=== PATIENT | female | born 1990 | race African-American/Black ===

== ENCOUNTER 2023-10-23 21:18 | Emergency (ER) | payer OTHER, SELFPAY ==
[2023-10-23 21:28] VITALS: BP 118/73; BP 126/69; PULSE 102; PULSE 82; RESP 18; TEMP 36.9; O2SAT 94; O2SAT 99; BMI 47.2
--- NOTE | 2023-10-23 22:03 | ED_ITS ---
HPI - Psych General Chief Complaint: Psychiatric Symptoms Stated Complaint: section 12, possible HI, from long term Source: patient and old records reviewed Mode of arrival: EMS Limitations: other (poor historian) History of Present Illness HPI Narrative: 33 yo female from long term - limited information appears to have developmental delay per records I do not see a med list here with c/o flipping knife around and talking about blood and wanting to kill people per section 12 - she denies anything and states she is fine and has no complaints. She only says yes or no. MD complaint: other (she denies) Onset (ago): hour(s) (1) Duration: resolved prior to arrival History of same: No Relieving factors: none Exacerbating factors: none Context: other (unknown) Associated psychiatric symptoms: none Associated symptoms: denies other symptoms Treatments prior to arrival: placed on mental health hold Related Data Allergies Allergy/AdvReac Type Severity Reaction Status Date / Time No Known Allergies Allergy Verified 10/23/23 21:33 Review of Systems Review of Systems: Constitutional : No Fever, No Chills ENT/Mouth : No Ear Pain, No Nasal Congestion, No sore throat Eyes: No Eye Pain, No Swelling, No Redness Cardiovascular : No Chest Pain, No SOB Respiratory : No Cough, No Sputum, No Dyspnea Gastrointestinal : No Nausea, No Vomiting, No Diarrhea, No Hematochezia, No Melena Genitourinary : No Dysuria, No Urinary Frequency, No Hematuria Musculoskeletal : No Myalgias Skin : No Skin Lesions, No rash Neuro : No Weakness, No Numbness, No Paresthesias, No Dizziness, No Headache Psych : no Anxiety, no Depression, no SI/HI All other systems reviewed and are negative [facility] Past Medical History Attestation statement: The following information was validated with the patient. Source: old records reviewed Medical History Cognitive developmental delay Social History Social History (Updated 10/23/23 @ 22:14 by Doreen Adams DO) Patient Tobacco Use Status: Tobacco use Unknown Physical Exam Vital Signs: Vital Signs: Last Vital Signs Temp 98.4 F 10/23/23 21:28 Pulse 82 10/23/23 21:28 Resp 18 10/23/23 21:28 BP 126/69 10/23/23 21:28 Pulse Ox 94 10/23/23 21:28 O2 Del Method Room Air 10/23/23 21:28 BMI result Body Mass Index 47.2 Appearance: Alert. Oriented X3. No acute distress. Eyes: Pupils equal, round and reactive to light. ENT: Pharynx normal. Neck: Normal inspection. Neck supple. CVS: Normal heart rate and rhythm. Pulses normal. Respiratory: No respiratory distress. Breath sounds normal. Abdomen: Soft and nontender. Skin: Skin warm and dry. Normal skin color. Normal skin turgor. Extremities: No lower extremity edema. No calf ttp Neuro: Oriented X 3. No motor deficit. No sensory deficit. Cn2-12 intact Medical Decision Making Medical Decision Making MDM Narrative: 33 yo female with PMH of developmental delay here with c/o reported gestures and threats at long term she comes with limited information and no med recc she is only saying yes or no responses to questions will obtain labs and involve CARE team. She came in on S12. I see no mention of mental health noted. Differential Diagnosis Differential Diagnoses: The differential diagnosis associated with the presentation includes anxiety, depression Admission/Observation Consideration of admission/observation: Escalation of care including admission/observation considered physician observation started at 1015pm pending care team input Consult Healthcare Provider Management of the patient was discussed with: Behavioral Health Provider Lab Data [facility] Lab Attestation statement: I reviewed the patient's lab results. Independent Historian Clinical information obtained from an independent historian. History obtained from or confirmed by: EMS External Record Review External record reviewed: Outpatient record Discharge Plan Discharge Clinical Impression: Acute anxiety Patient Disposition: Still a Patient
[2023-10-23 23:09] LABS: Influenza A PCR NEGATIVE (Negative); Influenza B PCR NEGATIVE (Negative); Resp Syncy Virus RNA Qual PCR NEGATIVE (Negative); SARS COV2 PCR INHOUSE NEGATIVE (Negative)
[2023-10-24 00:28] LABS: MANUAL DIFF FLAG NO
[2023-10-24 00:30] LABS: Basophils Percent Auto 0.4 % (0-2); Eosinophils Percent Auto 0.6 % (0-4); Hemoglobin 14.2 g/dl (12.0-16.0); Imm Gran Abs Auto 0.01 X10*3/uL (0.00-0.03); Imm Gran Pct Auto 0.2 % (0.0-0.4); Lymphocytes Absolute Auto 1.5 X10*3/uL (1.2-4.9); Lymphocytes Percent Auto 27.6 % (20-40); Mean Corpuscular HGB Conc 32.3 g/dl (31.0-35.0); Mean Corpuscular Hemoglobin 26.7 pg (27.0-33.0); Mean Corpuscular Volume 82.9 fL (80.0-98.0); Mean Platelet Volume 9.5 fL (9.4-12.3); Monocytes Absolute Auto 0.3 X10*3/uL (0.1-1.2); Monocytes Percent Auto 5.9 % (2-11); Neutrophils Absolute Auto 3.5 x10*3/uL (2.0-8.3); Neutrophils Percent Auto 65.3 % (45-73); Platelet Count 322 X10*3/uL (160-400); Red Blood Count 5.31 X10*6/uL (4.20-5.50); Red Cell Distribution Width 13.2 % (11.0-16.0); White Blood Count 5.3 X10*3/uL (4.8-10.8)
[2023-10-24 00:55] LABS: Alanine Aminotransferase 14 U/L (0-31); Albumin Level 3.9 g/dL (3.5-5.0); Alkaline Phosphatase 65 U/L (39-117); Anion Gap 13 (12-20); Aspartate Amino Transferase 22 U/L (5-31); Bilirubin Direct 0.2 mg/dL (0.0-0.5); Bilirubin Total 0.4 mg/dL (0.0-1.0); Blood Urea Nitrogen 6 mg/dL (9-16); Carbon Dioxide 23 mmol/L (22-29); Chloride 105 mmol/L (96-108); Estimated Glomerular Filt Rate > 60; Glucose Random 93 mg/dL (60-115); Potassium 4.8 mmol/L (3.3-5.1); Sodium 136 mmol/L (135-145); Total Protein 8.1 g/dL (6.5-8.0)
[2023-10-24 05:20] LABS: Appearance Urine Cloudy; Color Urine Yellow; Glucose Urine UA Negative (Negative); Leukocyte Esterase Urine Trace (Negative); Nitrite Urine Negative (Negative); PH 5.5 (5.0-9.0); Specific Gravity - Urine 1.015 (1.005-1.025); UMIC TRIGGER UACC YES; Urine Blood Negative (Negative); Urine Ketones Trace mg/dL (Negative); Urine Protein Negative (Neg-Trace)
[2023-10-24 05:21] LABS: UPreg QC Valid YES; Urine Pregnancy NEGATIVE (NEGATIVE)
[2023-10-24 05:25] LABS: Bacteria Urine 2+ (None Seen); Hyaline Casts Urine 0-2 /LPF (0-2); RBC Urine 0-2 /HPF (0-2); WBC Urine 0-5 /HPF (0-5)
[2023-10-24 05:28] LABS: Amphetamine Screen Urine Not Detected (Not Detect); Barbiturates, Urine Not Detected (Not Detect); Benzodiazepines Screen Urine Not Detected (Not Detect); Cannabinoid Screen Urine Not Detected (Not Detect); Cocaine Screen Urine Not Detected (Not Detect); Fentanyl, urine Not Detected (Not Detect); Opiate Screen Urine Not Detected (Not Detect); Phencyclidine Screen Urine Not Detected (Not Detect)
--- OUTSIDE RECORDS SUMMARY | 2023-10-24 06:09 | XMS_ITS | Continuity of Care Document ---
Author Organization [facility] ter Address [address] [place] [id number]- Care Team Providers Care Automation Control Integrator Name Role Phone Not on Staff, PCP Primary Care Physician Unavail able Encounter [facility] Date(s): 01/14/23 - 01/14/[address] [address]- Encounter Diagnosis Tachycardia(Final) - 01/14/23 Discharge Disposition: A-D/C Home Attending Physician: Isaías Singer MD Admitting Physician: Isaías Singer MD Referring Physician: Not on Staff, Referring MD Allergies, Adverse Reactions, Alerts No Known Allergies Medications acetaminophen 325 mg oral tablet 650 mg, 2, tablet, By Mouth, Every 6 hours, PRN, Maintenance, pain/fever <100F, 09/15/22 10:05:00 EST, ; Start Date: 09/15/22 Status: Ordered albuterol CFC free 90 mcg/inh inhalation aerosol 2, puffs, Inhalation, Every 6 hours, PRN, # 18 Gm, Refills 0, Tot. Refills 0, Maintenance, 01/15/2312:52:00 EDT, Aerosol, Route to Pharmacy Electronically, [id number], [facility], 168, cm, 01/14/23 12:12:00 EDT,... Start Date: 01/14/23 Status: Ordered Centrum 1 tablet, By Mouth, Daily, (INDIVIDUALLY WRAPPED AT [facility] [phone]), Maintenance, 06/10/22 10:10:00 EST, ; Start Date: 06/10/22 Status: Ordered diazepam 2 mg oral tablet 1 mg, 0.5, tablet, By Mouth, 2 times a day, Refills 0, Maintenance, 07/08/22 12:48:00 EST, ; Start Date: 07/08/22 Status: Ordered Keppra 750 mg oral tablet 1 tablet = 750 mg, By Mouth, 2 times a day, (INDIVIDUALLY WRAPPED AT [facility] [phone]), Maintenance, 06/10/22 10:11:00 EST, Tablet, ; Start Date: 06/10/22 Status: Ordered Melatonin 3 mg oral tablet 1 tablet = 3 mg, By Mouth, Daily at bedtime, (ALL MEDS ARE INDIVIDUALLY WRAPPED AT [facility] [phone]), Maintenance, 06/10/22 10:08:00 EST, Tablet, ; Start Date: 06/10/22 Status: Ordered Metamucil Powder 1 pack/packet, By Mouth, 2 times a day before breakfast and dinne, BEFORE MEALS (INDIVIDUALLY WRAPPED AT [facility] [phone]), Maintenance, 06/10/22 10:11:00 EST, Powder, ; Start Date: 06/10/22 Status: Ordered Nortrel 1/35 oral tablet 1 tablet, By Mouth, Daily, Maintenance, 09/15/22 10:01:00 EST, Tablet, ; Start Date: 09/15/22 Status: Ordered perphenazine 2 mg oral tablet 2 mg, 1, tablet, By Mouth, Daily in AM, Maintenance, 09/15/22 10:02:00 EST, ; Start Date: 09/15/22 Status: Ordered perphenazine 4 mg oral tablet 4 mg, 1, tablet, By Mouth, Daily, in the evening, Maintenance, 09/15/22 10:03:00 EST, ; Start Date: 09/15/22 Status: Ordered topiramate 100 mg oral tablet 1 tablet = 100 mg, By Mouth, Daily at bedtime, # 30 tablet, 0 Refills, Maintenance, 05/14/22 8:56:00 EDT, Tablet, [facility], Partial fill upon patient request if the prescription is for a schedule II opioid drug., 167, cm, 05/14/22 7:25:0... Start Date: 05/14/22 Status: Ordered traZODone 50 mg oral tablet 50 mg, 1, tablet, By Mouth, Daily at bedtime, Maintenance, 09/15/22 10:03:00 EST, ; Start Date: 09/15/22 Status: Ordered traZODone 50 mg oral tablet 50 mg, 1, tablet, By Mouth, Daily at bedtime, PRN, # 30 tablet, Refills 0, Tot. Refills 0, Maintenance, Insomnia, 05/14/22 8:58:00 EDT, Route to Pharmacy Electronically, [facility], Partial fill upon patient request if the prescription is... Start Date: 05/14/22 Status: Ordered Problem List Condition Confirmation Course Effective Dates Status Health St atus Informant Anxiety Confirmed Active H/O wheezing Confirmed Active Morbid obesity Confirmed Active Partial epilepsy Confirmed Active Schizophrenia Confirmed Active Severe obesity Confirmed Active Vital Signs Most recent to oldest [Reference Range]: 1 2 3 Height 168 cm (01/14/23 1:38 PM) 168 cm (01/14/23 1:26 PM) 168 cm (01/14/23 12:12 PM) Weight 159 kg (01/14/23 1:38 PM) 159 kg (01/14/23 1:26 PM) 159 kg (01/14/23 12:12 PM) Oxygen Saturation [94-100 %] 97 % (01/14/23 1: PM) 97 % (01/14/23 12:12 PM) Pulse Rate [55-90 bpm] 110 bpm *H* (01/14/23 1:26 PM) 110 bpm *H* (01/14/23 12:12 PM) Body Mass Index [18.5-24.99 kg/m2] 56.34 kg/m2 *>HHI* (01/14/23 1:26 PM) 56.34 kg/m2 *>HHI* (01/14/23 12:12 PM) Blood Pressure [90-138/55-84 mm Hg] 129/85mm Hg (01/14/23 1: PM) 159/91mm Hg *H* (01/14/23 12:12 PM) Respiratory Rate [16-30 br/min] 20 br/min (01/14/23 1:26 PM) 18 br/min (01/14/23 12:12 PM) Temperature [96.8-100.4 DegF] 97.5 DegF (01/14/23 12:12 PM) Mode of Delivery (Oxygen) Room air (01/14/23 1:26 PM) Room air (01/14/23 12:12 PM) Blood pressure sites Arm, right (01/14/23 1:26 PM) Arm, right (01/14/23 12:12 PM) Temperature Route Oral (01/14/23 12:12 PM) Dry Weight 159 kg (01/14/23 1:38 PM) 159 kg (01/14/23 1:26 PM) 159 kg (01/14/23 12:12 PM) Weight Obtained Via Patient/family state d (01/14/23 12:12 PM) Dry Weight Obtained Via Patient/family s tated (01/14/23 12:12 PM) Social History Social History Type Response Smoking Status Never smoker entered on: 06/16/14 Sex Note * Isaías Singer MD: PERFORM, SIGN, VERIFY Event Display: Patient Education Handout Authored Date: [id number] Patient Care team information Care Team Personnel Name: Anna Yarbrough RN Position: [facility] RN Member Role: Primary Care Nurse Name: Ju Woodard RN Position: S RN Member Role: Primary Care Nurse Name: Wanda Fuller RN Position: S RN Member Role: Primary Care Nurse Name: Not on Staff, PCP Position: [facility] Physician (General Medicine) Member Role: PCP Name: Suyapa Stevens RN Position: [facility] RN Supv Member Role: Primary Care Nurse Name: Sarah Bradford RN Position: [facility] RN Member Role: Primary Care Nurse Name: Isaías Singer MD Position: [facility] ED Medicine MD Member Role: Admitting Physician Address: Address: [address] [place] [address] [place] [address] [place] Care Team Related Persons Name: NEGOTIATOR SALESNILAY Address: home [address] [facility] [address] [place] [address] Name: HORTENCIA GOODWIN Address: home [address] [place] [address] Name: JANETTE HASKINS Address: home [address] [place] [address] Name: MADISON ANDERSON Address: home [address] [place] [address]
--- OUTSIDE RECORDS SUMMARY | 2023-10-24 06:09 | XMS_ITS | Continuity of Care Document ---
Author Organization [facility] ter Address [address] [place] [address]- Care Team Providers Care Internet Salesperson Name Role Phone Not on Staff, PCP Primary Care Physician Unavail able [place] [facility]06[place]23 - 03/06/[address] [address]- Encounter Diagnosis Agitation(Final) - 03/06/23 Schizoaffective disorder(Final) - 03/06/23 Intellectual disability(Final) - 03/06/23 Discharge Disposition: A-D/C Home Attending Physician: Serg Sevilla MD Admitting Physician: Serg Sevilla MD Referring Physician: Not on Staff, Referring [...] 01/15/2312:52:00 EDT, Aerosol, Route to Pharmacy Electronically, [id number], [facility], 168, cm, 01/14/23 12:12:00 EDT,... Start Date: 01/14/23 Status: Ordered Centrum 1 tablet, By Mouth, Daily, (INDIVIDUALLY WRAPPED AT [facility] [phone]), Maintenance, 06/10/22 10:10:00 EST, ; Start Date: 06/10/22 Status: Ordered diazepam 2 mg oral tablet 1 mg, 0.5, tablet, By Mouth, 2 times a day, Refills 0, Maintenance, 07/08/22 12:48:00 EST, ; Start Date: 07/08/22 Status: Ordered Keppra 750 mg oral tablet 1 tablet = 750 mg, By Mouth, 2 times a day, (INDIVIDUALLY WRAPPED AT [facility] [phone]), Maintenance, 06/10/22 10:11:00 EST, Tablet, ; Start Date: 06/10/22 Status: Ordered Melatonin 3 mg oral tablet 1 tablet = 3 mg, By Mouth, Daily at bedtime, (ALL MEDS ARE INDIVIDUALLY WRAPPED AT [facility] [phone]), Maintenance, 06/10/22 10:08:00 EST, Tablet, ; Start Date: 06/10/22 Status: Ordered Metamucil Powder 1 pack/packet, By Mouth, 2 times a day before breakfast and dinne, BEFORE MEALS (INDIVIDUALLY WRAPPED AT [facility] [phone]), Maintenance, 06/10/22 10:11:00 EST, Powder, ; Start [...] Most recent to oldest [Reference Range]: 1 Oxygen Saturation [94-100 %] 95 % (03/06/23 9:05 AM) Pulse Rate [55-90 bpm] 102 bpm *H* (03/06/23 9:05 AM) Blood Pressure [90-138/55-84 mm Hg] 135/ 83mm Hg (03/06/23 9:05 AM) Respiratory Rate [16-30 br/min] 18 br/mi n (03/06/23 9:05 AM) Temperature [96.8-100.4 DegF] 97.8 DegF (03/06/23 9:05 AM) Mode of Delivery (Oxygen) Room air (03/06/23 9:05 AM) Blood pressure sites Arm, right (03/06/23 9:05 AM) Temperature Route Oral (03/06/23 9:05 AM) Social History Social History Type Response Smoking Status Never smoker entered on: 06/16/14 Sex Patient Care team information Care Team Personnel Name: Anna Yarbrough RN Position: [facility] RN Member Role: Primary Care Nurse Name: Ju Woodard RN Position: [facility] RN Member Role: Primary Care Nurse Name: Wanda Fuller RN Position: [facility] RN Member Role: Primary Care Nurse Name: Not on Staff, PCP Position: [facility] Physician (General Medicine) Member Role: PCP Name: Suyapa Stevens RN Position: [facility] RN Member Role: Primary Care Nurse Name: Sarah Bradford RN Position: [facility] RN Member Role: Primary Care Nurse Name: Trang Mathew DO Position: [facility] Resident Member Role: ED Resident Address: Address: [address] [place] [address]- Name: Serg Sevilla MD Position: [facility] ED Medicine MD Member Role: Admitting Physician Address: Address: [address] [place] [address] Name: Sarita Thapa RN Position: [facility] ED RN W/OE and Tasks Member Role: Patient Care Provider Name: Lissette Marie Position: [facility] ED TA [facility] Member Role: Nail Assembly Machine Operator Care Team Related Persons Name: ACOUSTICAL MATERIAL WORKERNILAY Address: home [address] [facility] [address] [place] [address] Name: HORTENCIA GOODWIN Address: home [address] [place] [address] Name: JANETTE HASKINS Address: home [address] [place] [address] Name: MADISON ANDERSON Address: home [address] [place] [address]
--- OUTSIDE RECORDS SUMMARY | 2023-10-24 06:09 | XMS_ITS | Continuity of Care Document ---
Author Organization [facility] ter Address [address] [place] [address]- Care Team Providers Care Juice Bar Team Member Name Role Phone Not on Staff, PCP Primary Care Physician Unavail able [place] [facility] - 01/26/[address] [address]- Encounter Diagnosis Suicidal ideations(Final) - 01/25/23 Schizoaffective disorder(Final) - 01/25/23 Discharge Disposition: A-D/C Home Attending Physician: Александр Zuñiga MD Admitting Physician: Александр Zuñiga MD Referring Physician: Not on Staff, Referring [...] 01/15/2312:52:00 EDT, Aerosol, Route to Pharmacy Electronically, [id number], [facility], 168, cm, 01/14/23 12:12:00 EDT,... Start Date: 01/14/23 Status: Ordered Centrum 1 tablet, By Mouth, Daily, (INDIVIDUALLY WRAPPED AT [facility] [phone]), Maintenance, 06/10/22 10:10:00 EST, ; Start Date: 06/10/22 Status: Ordered diazepam 2 mg oral tablet 1 mg, 0.5, tablet, By Mouth, 2 times a day, Refills 0, Maintenance, 07/08/22 12:48:00 EST, ; Start Date: 07/08/22 Status: Ordered Keppra 750 mg oral tablet 1 tablet = 750 mg, By Mouth, 2 times a day, (INDIVIDUALLY WRAPPED AT [facility] [phone]), Maintenance, 06/10/22 10:11:00 EST, Tablet, ; Start Date: 06/10/22 Status: Ordered Melatonin 3 mg oral tablet 1 tablet = 3 mg, By Mouth, Daily at bedtime, (ALL MEDS ARE INDIVIDUALLY WRAPPED AT [facility] [phone]), Maintenance, 06/10/22 10:08:00 EST, Tablet, ; Start Date: 06/10/22 Status: Ordered Metamucil Powder 1 pack/packet, By Mouth, 2 times a day before breakfast and dinne, BEFORE MEALS (INDIVIDUALLY WRAPPED AT [facility] [phone]), Maintenance, 06/10/22 10:11:00 EST, Powder, ; Start [...] to oldest [Reference Range]: 1 2 3 Oxygen Saturation [94-100 %] 98 % (01/26/23 11:00 AM) 98 % (01/25/23 11:22 PM) 98 % (01/25/23 7:54 PM) Pulse Rate [55-90 bpm] 98 bpm *H* (01/26/23 11:00 AM) 100 bpm *H* (01/25/23 11:22 PM) 112 bpm *H* (01/25/23 7:54 PM) Blood Pressure [90-138/55-84 mm Hg] 129/87mm Hg (01/26/23 11:00 AM) 122/74mm Hg (01/25/23 11:22 PM) 135/95mm Hg (01/25/23 7:54 PM) Respiratory Rate [16-30 br/min] 17 br/min (01/26/23 11:00 AM) 18 br/min (01/25/23 11:22 PM) 18 br/min (01/25/23 7:54 PM) Temperature [96.8-100.4 DegF] 98.3 DegF (01/26/23 11:00 AM) 98.1 DegF (01/25/23 7:54 PM) Mode of Delivery (Oxygen) Room air (01/26/23 11:00 AM) Room air (01/25/23 11:22 PM) Room air (01/25/23 7:54 PM) Blood pressure sites Arm, right (01/26/23 11:00 AM) Arm, right (01/25/23 11:22 PM) Arm, right (01/25/23 7:54 PM) Temperature Route Oral (01/26/23 11:00 AM) Oral (01/25/23 7:54 PM) Social History Social History Type Response Smoking Status Never smoker entered on: 06/16/14 Sex Note * Александр Zuñiga MD: PERFORM Event Display: Patient Education Leaflets Authored Date: [id number] Psychosis ?? [id number] Psychosis Psychosis is a serious symptom of certain mental health problems. It also can be caused by some physical disease, traumatic experiences, or drugs and toxins. Psychosis involves perceiving reality differently from those around you. The difference between reality and what you think is reality becomesblurred in your mind. There are different kinds of psychosis, depending on the cause: ??? Health problems such as infections, thyroid disorders, some cancers, sleep deprivation, low or high blood sugar levels, or dementia ??? Drug-induced from drugs such as alcohol, methamphetamine, cocaine, LSD, or PCP ??? Bipolar disorder ??? Depression ??? Schizophrenia Symptoms The symptoms of psychosis may not all be the same for each person. But they usually involve: ??? Hallucinations. Seeing, hearing, feeling, or even tasting or smelling things that are not there. ??? Delusions.??Believing something that's not true, or false beliefs that are not part of a person's yazidi or cultural background. There may also be disturbances in thinking, speech, and behavior. These can include: ??? Hearing voices that others don't hear ??? Seeing things that others don't see ??? Racing thoughts ??? Lack of energy ??? Feeling very fearful ??? Disorganized speech ??? Intentional or unintentional bodily harm to others ??? Paranoia ??? Trouble thinking or concentrating clearly ??? Depression,feeling suicidal ??? Insomnia ??? Withdrawal from those around you Treatment for psychosis depends on the cause. Medicine is often used, with or without psychotherapy. You may need to stay in the hospital. This is to protect you and to carefully monitor medicines. ?? Home care ??? Find a healthcare provider and therapist who meet your needs. Seek help when you feellike your symptoms are returning. ??? Be sure to take your medicine as directed even if you think you don't need it. Never stop your medicine or change the dose without talking with your provider. Never use another person's medicine. ??? If you have trouble paying for your prescription, let your providers know so they can help you find resources. ??? Talk with your family about your feelings and thoughts. Ask them to help you recognize any behavior changes so you can get help and, if needed, medicines can be adjusted. ??? Contact your provider if you feel like your medicine is not working and changes need to be made. ?? Follow-up care is critical It's important to manage your condition by staying in close and regular contact with your healthcare team. Always follow up with your counselor, therapist, or psychiatrist as advised. Don't skip taking your medicine or change it without talking with your healthcare team. Take it as directed even if you think you don't need it. Also: ??? Be certain to tell each of your healthcare providers about all of the prescription medicines, ufjr-vue-wbvoaet medicines, illegal drugs, vitamins, and supplements you take.??Certain supplements interact with medicines. This can result in dangerous side effects.??Ask your pharmacist when you have questions about drug interactions. Tell your provider if you use alcohol and, if you do, howoften and how much you drink. ??? Tell your healthcare provider about all your medical conditions and any recent illnesses, such as infections. ??? Follow-up with lab tests as advised by your healthcare provider. Lab work is very important and can tell your provider the blood level of certain medicines. They can see if your dose needs to be increased or decreased. ?? Crisis care If you or the person is at immediate risk, call or text the National Suicide Lifeline at 988. Or call emergency services at 911. You will be connected to trained crisis counselors. An online chat option is also available. Lifeline is free and available 02/02. The Lifeline will work together with [facility] to make sure you get the care you need. Call 988 if you: ??? Have suicidal thoughts, a suicide plan, and the means to carry out the plan ??? Hear voices that are telling you to harm yourself or others ??? Have trouble breathing ??? Are very confused ??? Are very drowsy or have trouble awakening ??? Faint or lose??consciousness ??? Have arapid heart rate, very low heart rate, or a new irregular heart rate ??? Have a seizure ?? When to seek medical advice Call your healthcare provider right away if any of these occur: ??? Gradual or rapid return of psychotic symptoms ??? Feeling like you want to harm yourself or another ??? Feeling extremely depressed??? Feeling very anxious, agitated, or angry ??? Feeling out of control or being controlled by others ??? Unable to care for yourself ??? Seeing things or hearing voices that you know aren't real ?? Last Reviewed Date: 2021 ?? [id number] [employer]. All rights reserved. This information is not intended as a substitute for professional medical care. Always follow your healthcare professional's instructions. ?? Patient Care team information Care Team Personnel Name: Anna Yarbrough RN Position: [facility] RN Member Role: Primary Care Nurse Name: Ju Woodard RN Position: [facility] RN Member Role: Primary Care Nurse Name: Wanda Fuller RN Position: [facility] RN Member Role: Primary Care Nurse Name: Not on Staff, PCP Position: [facility] Physician (General Medicine) Member Role: PCP Name: Suyapa Stevens RN Position: [facility] RN Supv Member Role: Primary Care Nurse Name: Sarah Bradford RN Position: [facility] RN Member Role: Primary Care Nurse [facility] Attending Position: [facility] ED Attendings Patient Name: Александр Zuñiga MD Position: [facility] ED Medicine MD Member Role: Admitting Physician Address: Address: [address] [place] [id number] Name: Adam Guerrero Position: [facility] [place] [facility] Name: Elena Frey RN Position: [facility] ED RN W/OE and Tasks Member Role: Patient Care Provider Care Team Related Persons Name: LAUNCH ENGINEERNILAY Address: home [address] [facility] [address] [place] [address] Name: HORTENCIA GOODWIN Address: home [address] [place] [address] Name: JANETTE HASKINS Address: [address] [place] [address] Name: MADISON ANDERSON Address: [address] [place] [address]
--- OUTSIDE RECORDS SUMMARY | 2023-10-24 06:09 | XMS_ITS | Continuity of Care Document ---
Author Organization [facility] ter Address [address] [place] [id number]- Care Team Providers Care Senior Clinical Data Coordinator Name Role Phone Israel Boss MD Primary Care Physician Encounter [facility] [place] Date(s): 08/06/21 - 08/07/[address] [address]- Discharge Disposition: A-D/C Home Attending Physician: Andres Landers DO Admitting Physician: Andres Landers DO Referring Physician: Not on Staff, Referring MD Allergies, Adverse Reactions, Alerts No Known Allergies Medications acetaminophen 325 mg oral tablet 650 mg, 2, tablet, By Mouth, Every 6 hours, PRN, Maintenance, pain, 05/14/21 14:58:00 EDT, ; Start Date: 05/14/21 Status: Ordered bacitracin topical 500 u/gm ointment 1 application, Topically, 3 times a day, PRN as needed, apply to affected skin, Maintenance, 05/14/21 15:00:00 EDT, Ointment, ; Start Date: 05/14/21 Status: Ordered GuaiFENesin DM 20 mg-200 mg/10 mL oral liquid 10 mL, By Mouth, Every 6 hours, PRN as needed for cough, not to exceed 6 doses/day, Maintenance, 05/14/21 15:01:00 EDT, Liquid, ; Start Date: 05/14/21 Status: Ordered Keppra 750 mg oral tablet 1 tablet = 750 mg, By Mouth, 2 times a day, # 60 tablet, 6 Refills, Maintenance, 05/22/16 16:50:22 Start Date: 05/22/16 Stop Date: 12/18/16 Status: Ordered Nexplanon 68 mg subcutaneous implant 1 each = 68 mg, Subcutaneous Infusion, Once, Maintenance, 05/14/21 14:59:00 EDT, ; Start Date: 05/14/21 Status: Ordered Thera M 1 tablet, By Mouth, Daily in AM, Maintenance, 05/14/21 14:57:00 EDT, ; Start Date: 05/14/21 Status: Ordered Topamax 25 mg oral tablet 1 tablet = 25 mg, By Mouth, Daily at bedtime, 0 Refills, Maintenance, 05/13/21 13:36:00 EDT, Tablet, ; Start Date: 05/13/21 Status: Ordered Trilafon Tablet 3 mg, By Mouth, Daily, evening, Maintenance, 05/14/21 14:55:00 EDT, ; Start Date: 05/14/21 Status: Ordered Valium Tablet 1 mg, By Mouth, 2 times a day, Maintenance, 04/26/14 8:43:26 EDT Start Date: 04/26/14 Status: Ordered Problem List Condition Effective Dates Status Health Status Inform ant Anxiety(Confirmed) Active H/O wheezing(Confirmed) Active Morbid obesity(Confirmed) Active Partial epilepsy(Confirmed) Active Schizophrenia(Confirmed) Active Vital Signs Most recent to oldest [Reference Range]: 1 2 3 Oxygen Saturation [94-100 %] 98 % (08/07/21 6:00 AM) 98 % (08/06/21 8:39 PM) 100 % (08/06/21 5:15 PM) Pulse Rate [55-90 bpm] 103 bpm *H* (08/07/21 6:00 AM) 99 bpm *H* (08/06/21 8:39 PM) 92 bpm *H* (08/06/21 5:15 PM) Blood Pressure [90-138/55-84 mm Hg] 140/77mm Hg *H* (08/07/21 6:00 AM) 143/73mm Hg *H* (08/06/21 8:39 PM) 98/46mm Hg (08/06/21 5:15 PM) Respiratory Rate [16-30 br/min] 16 br/min (08/07/21 6:00 AM) 18 br/min (08/06/21 8:39 PM) 20 br/min (08/06/21 5:15 PM) Temperature [96.8-100.4 DegF] 97.8 DegF (08/07/21 6:00 AM) 98.2 DegF (08/06/21 5:15 PM) 98.3 DegF (08/06/21 10:45 AM) Liters per Minute 0 L/min (08/06/21 5:15 PM) Mode of Delivery (Oxygen) Room air (08/07/21 6:00 AM) Room air (08/06/21 8:39 PM) Room air (08/06/21 5:15 PM) Blood pressure sites Arm, right (08/07/21 6:00 AM) Arm, left (08/06/21 8:39 PM) Arm, right (08/06/21 5:15 PM) Temperature Route Oral (08/07/21 6:00 AM) Oral (08/06/21 5:15 PM) Oral (08/06/21 10:45 AM) Social History Social History Type Response Smoking Status Never smoker entered on: 06/16/14 Sex Female
--- OUTSIDE RECORDS SUMMARY | 2023-10-24 06:09 | XMS_ITS | Continuity of Care Document ---
Author Organization [facility] ter Address [address] [place] [address]- Care Team Providers Care Crocodile Farmer Name Role Phone Jeramie ASTORGAManas Primary Care Physician [phone] [place] [facility] [place](s): 06/09/22 - 06/10/[address] [address]- Discharge Disposition: A-D/C Home Attending Physician: Kaylee Vernon MD Admitting Physician: Kaylee Vernon MD Referring Physician: Not on Staff, Referring MD Allergies, Adverse Reactions, Alerts No Known Allergies Medications acetaminophen 325 mg oral tablet 325 mg, 1, tablet, By Mouth, Every 6 hours, PRN, (INDIVIDUALLY WRAPPED AT [facility] [phone]), Maintenance, PAINFEVER >100F, 06/10/22 10:13:00 EST, ; Start Date: 06/10/22 Status: Ordered bacitracin topical 500 u/gm ointment 1 application, Topically, 3 times a day, PRN as needed, apply to affected skin (INDIVIDUALLY WRAPPED AT [facility] [phone]), Maintenance, 06/10/22 10:16:00 EST, Ointment, ; Start Date: 06/10/22 Status: Ordered Centrum 1 tablet, By Mouth, Daily, (INDIVIDUALLY WRAPPED AT [facility] [phone]), Maintenance, 06/10/22 10:10:00 EST, ; Start Date: 06/10/22 Status: Ordered diazepam 2 mg oral tablet 1 mg, 0.5, tablet, By Mouth, 2 times a day, for 14 days, # 14 tablet, Refills 1, Tot. Refills 1, Acute 06/11/22 8:59:00 EST, 05/14/22 8:59:00 EDT, Print Requisition, Partial fill upon patient requestif the prescription is for a schedule II opioid drug. Start Date: 05/14/22 Stop Date: 06/11/22 Status: Ordered ibuprofen 400 mg oral tablet 600 mg, 1.5, tablet, By Mouth, Every 8 hours, PRN, (INDIVIDUALLY WRAPPED AT [facility] [phone]), Maintenance, as needed, 06/10/22 10:18:00 EST, ; Start Date: 06/10/22 Status: Ordered Keppra 750 mg oral tablet 1 tablet = 750 mg, By Mouth, 2 times a day, (INDIVIDUALLY WRAPPED AT [facility] [phone]), Maintenance, 06/10/22 10:11:00 EST, Tablet, ; Start Date: 06/10/22 Status: Ordered Melatonin 3 mg oral tablet 1 tablet = 3 mg, By Mouth, Daily at bedtime, (ALL MEDS ARE INDIVIDUALLY WRAPPED AT [facility] [phone]), Maintenance, 06/10/22 10:08:00 EST, Tablet, ; Start Date: 06/10/22 Status: Ordered Metamucil Powder 1 pack/packet, By Mouth, 2 times a day, BEFORE MEALS (INDIVIDUALLY WRAPPED AT [facility] [phone]), Maintenance, 06/10/22 10:11:00 EST, Powder, ; Start Date: 06/10/22 Status: Ordered Nexplanon 68 mg subcutaneous implant 1 each = 68 mg, Subcutaneous Infusion, Once, Maintenance, 05/14/21 14:59:00 EDT, ; Start Date: 05/14/21 Status: Ordered perphenazine 2 mg oral tablet 2 mg, 1, tablet, By Mouth, 2 times a day, (INDIVIDUALLY WRAPPED AT [facility] [phone]), Maintenance, 06/10/22 10:13:00 EST, ; Start Date: 06/10/22 Status: Ordered topiramate 100 mg oral tablet 1 tablet = 100 mg, By Mouth, Daily at bedtime, # 30 tablet, 0 Refills, Maintenance, 05/14/22 8:56:00 EDT, Tablet, [facility], Partial fill upon patient [...] prescription is... Start Date: 05/14/22 Status: Ordered Tuss-DM 10 mL, Chew, Every 6 hours, PRN Cough and Congestion, (INDIVIDUALLY WRAPPED AT [facility] [phone]), Maintenance, 06/10/22 10:18:00 EST, ; Start Date: 06/10/22 Status: Ordered Problem List Condition Confirmation Course Effective Dates Status Health St atus Informant Anxiety Confirmed Active H/O wheezing Confirmed Active Morbid obesity Confirmed Active Partial epilepsy Confirmed Active Schizophrenia Confirmed Active Severe obesity Confirmed Active Vital Signs Most recent to oldest [Reference Range]: 1 2 3 Oxygen Saturation [94-100 %] 100 % (06/10/22 8:45 AM) 99 % (06/10/22 2:00 AM) 100 % (06/09/22 7:47 PM) Pulse Rate [55-90 bpm] 98 bpm *H* (06/10/22 8:45 AM) 99 bpm *H* (06/10/22 2:00 AM) 94 bpm *H* (06/09/22 7:47 PM) Blood Pressure [90-138/55-84 mm Hg] 135/85mm Hg (06/10/22 8:45 AM) 115/60mm Hg (06/10/22 2:00 AM) 110/58mm Hg (06/09/22 7:47 PM) Respiratory Rate [16-30 br/min] 18 br/min (06/10/22 8:45 AM) 17 br/min (06/10/22 2:00 AM) 18 br/min (06/09/22 7:47 PM) Temperature [96.8-100.4 DegF] 98.3 DegF (06/10/22 8:45 AM) 98 DegF (06/10/22 2:00 AM) 97.7 DegF (06/09/22 7:47 PM) Mode of Delivery (Oxygen) Room air (06/10/22 8:45 AM) Room air (06/10/22 2:00 AM) Room air (06/09/22 7:47 PM) Blood pressure sites Arm, left (06/09/22 7:47 PM) Temperature Route Oral (06/10/22 8:45 AM) Oral (06/10/22 2:00 AM) Oral (06/09/22 7:47 PM) Social History Social History Type Response Smoking Status Never smoker entered on: 06/16/14 Sex EKG study * Event Display: ECG 12-Lead Authored Date: Please click on pdf link to open report * Event Display: ECG 12-Lead Authored Date: Ventricular Rate: 104 BPM Atrial Rate: 104 BPM P-R Interval: 184 ms QRS Duration: 102 ms Q-T Interval: 340 ms QTC Calculation(Bazett): 447 ms P Seaside: 60 degrees R Seaside: 52 degrees T Seaside: 25 degrees Sinus tachycardia Lateral infarct (cited on or before 10-JUN-2022) Abnormal ECG Confirmed by MARIAN LUGO ([id number]) on 06/10/2022 11:23:16 AM [place]: MARIAN LUGO * Event Display: EKG Authored Date: Patient Care team information Care Team Personnel Name: Manas Bobo DO Position: Reference Physician Member Role: PCP Address: Address: [address] [place] [address]- Name: Anna Yarbrough RN Position: [facility] RN Member Role: Primary Care Nurse Name: Ju Woodard RN Position: [facility] RN Member Role: Primary Care Nurse Name: Suyapa Stevens RN Position: [facility] RN Supv Member Role: Primary Care Nurse Name: Mouna Levy RN Position: [facility] RN Member Role: Primary Care Nurse Name: Sarah Bradford RN Position: [facility] RN Member Role: Primary Care Nurse Name: Diamond Haq RN Position: [facility] ED RN W/OE and Tasks Member Role: Patient Care Provider Name: Daphnie Noe Position: [facility] ED TA [facility] Member Role: Change Analyst Name: Steve Montana DO Position: [facility] Resident Member Role: ED Resident Address: Address: [address] [place] [address] [place] [address]- Name: Saulo COATES, Kaylee Burden Position: [facility] ED Medicine MD Member Role: Admitting Physician Address: Address: [address] [place] [address] [place] [address]- Care Team Related Persons Name: JUANCHO SHIN Address: home [address] [address] Name: HORTENCIA GOODWIN Address: home [address] [place] [address] Name: JANETTE HASKINS Address: home [address] [place] [address] Name: MADISON ANDERSON Address: home [address] [place] [address]
--- OUTSIDE RECORDS SUMMARY | 2023-10-24 06:09 | XMS_ITS | Continuity of Care Document ---
Author Organization [facility] ter Address [address] [place] [address]- Care Team Providers Care Glove Parts Inspector Name Role Phone Jeramie Manas ASTORGA Primary Care Physician [place] [facility] [place] - 06/07/[address] [address]- Encounter Diagnosis Paranoia(Final) - 06/07/22 Discharge Disposition: A-D/C Home Attending Physician: Ciara Samaniego MD Admitting Physician: Ciara Samaniego MD Referring Physician: Not on Staff, Referring MD Allergies, Adverse Reactions, Alerts No Known Allergies Medications diazepam 2 mg oral tablet 1 mg, 0.5, tablet, By Mouth, 2 times a day, for 14 days, # 14 tablet, Refills 1, Tot. Refills 1, Acute 06/11/22 8:59:00 EST, 05/14/22 8:59:00 EDT, Print Requisition, Partial fill upon patient requestif the prescription is for a schedule II opioid drug. Start Date: 05/14/22 Stop Date: 06/11/22 Status: Ordered Keppra 250 mg oral tablet 3 tablet = 750 mg, By Mouth, 2 times a day, # 180 tablet, 0 Refills, Maintenance, 05/14/22 8:54:00 EDT, [facility], Partial fill upon patient request if the prescription is for a schedule II opioid drug., 167, cm, 05/14/22 7:25:00... Start Date: 05/14/22 Status: Ordered multivitamin Multiple Vitamins oral tablet 1 tablet, By Mouth, Daily, # 30 tablet, 0 Refills, Maintenance, 05/14/22 8:57:00 EDT, Tablet, [facility], Partial fill upon patient request if the prescription is for a schedule II opioid drug., 1 tablet By Mouth Daily, 167, cm, 05/14/22 7... Start Date: 05/14/22 Status: Ordered Nexplanon 68 mg subcutaneous implant 1 each = 68 mg, Subcutaneous Infusion, Once, Maintenance, 05/14/21 14:59:00 EDT, ; Start Date: 05/14/21 Status: Ordered perphenazine 2 mg oral tablet 3 mg, 1.5, tablet, By Mouth, Daily at bedtime, # 45 tablet, Refills 0, Tot. Refills 0, Maintenance,05/14/22 8:55:00 EDT, Route to Pharmacy Electronically, [facility], Partial fill upon patient request if the prescription is for a schedule... Start Date: 05/14/22 Status: Ordered perphenazine 4 mg oral tablet 4 mg, 1, tablet, By Mouth, 4 times a day, # 56 tablet, Refills 0, Tot. Refills 0, Maintenance, 05/14/22 8:57:00 EDT, Route to Pharmacy Electronically, [facility], Partial fill upon patient request if the prescription is for a schedule II o... Start Date: 05/14/22 Stop Date: 05/28/22 Status: Ordered psyllium 3.4 g/5.4 g oral powder for reconstitution = 1.7 Gm, By Mouth, 3 times a day, PRN as needed for constipation, # 283 Gm, 0 Refills, Acute 05/15/23 8:57:00 EDT, 05/14/22 8:56:00 EDT, REC Powder, [facility], Partial fill upon patient request if the prescription is for a schedule II op... Start Date: 05/14/22 Stop Date: 05/15/23 Status: Ordered topiramate 100 mg oral tablet [...] [Reference Range]: 1 Oxygen Saturation [94-100 %] 98 % (06/07/22 3:00 PM) Pulse Rate [55-90 bpm] 61 bpm (06/07/22 3:00 PM) Blood Pressure [90-138/55-84 mm Hg] 138/ 83mm Hg (06/07/22 3:00 PM) Respiratory Rate [16-30 br/min] 18 br/mi n (06/07/22 3:00 PM) Temperature [96.8-100.4 DegF] 97.5 DegF (06/07/22 3:00 PM) Mode of Delivery (Oxygen) Room air (06/07/22 3:00 PM) Temperature Route Oral (06/07/22 3:00 PM) Social History Social History Type Response Smoking Status Never smoker entered on: 06/16/14 Sex Note * Ciara Samaniego MD: PERFORM, SIGN, VERIFY Event Display: Patient Education Handout Authored Date: * Ciara Samaniego MD: PERFORM Event Display: Patient Education Leaflets Authored Date: [id number] Schizoaffective Disorder ?? [id number] Schizoaffective Disorder Schizoaffective disorder is a serious chronic mental health condition that has symptoms of schizophrenia (hallucinations or delusions) and symptoms of a mood disorder (mk and depression). Schizoaffective disorder is a rare condition. It's often incorrectly diagnosed at first as bipolar disorder. It can take time to tell the difference between schizoaffective disorder and schizophreniaand mood disorders. Schizophrenia is long-term (chronic). It makes working and living society difficult. It's a type ofpsychosis that involves perceiving reality differently from those around you. The difference been reality and what you think become blurred in your mind.??The cause of schizophrenia is not yet known.It's believed to be a result of genetic and biological factors such as brain chemistry and structure. Symptoms of schizophrenia??include: ??? Seeing or hearing things that are not there (hallucinations) ??? False beliefs (delusions) ??? Disorganized thinking and speech ??? Severe anxiety ??? Feeling unreal ??? Paranoia ??? Insomnia ???Trouble thinking or concentrating clearly ??? Depression, feeling suicidal ??? Withdrawal from those around you (social withdrawal) Depression is one type of mood disorder that is related to brain chemistry. It's not just a state of unhappiness or sadness but a true disease. You may feel a lack of interest in normal activities. Sometimes there is sadness or guilt without any clear reason. Thinking may become slow and there can be a lack energy or feeling of hopelessness. Some people have thoughts of harming themselves at thisstage. Thoughts can even turn to suicide. Bipolar disorder is the other major mood disorder. It's an illness that causes strong mood swings between depression and mk. In the manic phase you may think fast and do things quickly. It may seem like you are getting a lot done. At first, this may feel very good; but in the extreme this can lead to a lifestyle that is disorganized and chaotic, and includes risky behavior (spending sprees, sexual acting out, or drug use). In later stages, it may affect eating (no interest in food) and sleeping (unable to sleep for days at a time). Speech may speed up and become hard for others to understand. You may appear to others as if you are in your own world. The exact cause of schizoaffective disorder is unknown. But a person is more likely to get this illness if a family member has it. Use of drugs such as amphetamines (speed) and cocaine increase the risk of getting this disorder. People with this illness will generally have to treat it long-term. Medicine and psychotherapy can help. Home care ??? On-going care and support helps people manage this illness. Find a healthcare provider and therapist who meet your needs. Don't be discouraged if you have to visit a number of therapists before you find one that works well with you. ??? Be sure to take your prescribed medicine as directed, even if you think you don???t need it. Don't change the dose or stop the medicine unless you talk with your provider. Don't share your medicines or use another person's medicines. ??? Talk to your provider if you trouble paying for your medicine. Ask them to help you find resources to help with this. ??? Get the required lab work on schedule to check your overall health and make certain you are getting the right amount of medicine ??? Seek support from trusted friends or family by talking about your feelings and thoughts. Ask them to help you recognize behavior changes early so you can get help. If needed, your healthcare provider can adjust your medicines and stop serious problems from developing. ??? Tell each of your healthcare providers about all of the prescription medicines, ove [id number] medicines, and supplements you take. This includes your dentist.??Certain supplementsinteract with medicines and can cause dangerous side effects.?? Ask your pharmacist when you have questions about medicine interactions. ??? If you are having trouble managing workplace issues, or caring for yourself because of this illness, contact your local Americans with Disabilities (ADA) office to see if they can help. ??The U.[place]. Department of Justice operates a toll-free ADA information line at 903-406-2612 (Voice) or 706-749-6094 (TTY). ??They can help you find a local office. ??? Don'tuse alcohol, amphetamines, cocaine, or related street??drugs to manage symptoms. These will interact with your medicines and make your condition worse. If your symptoms aren't being controlled, go back to your provider. You may need the dose of your current medicine changed or a different medicine. ?? Follow-up care Follow up with your healthcare provider, or??as advised. ?? Call 988 Call or text 988 if you ??? Have thoughts of harming yourself or others. . You will be connected to trained crisis counselors. ??? Have trouble breathing ??? Are very confused ??? Are very drowsy or have trouble awakening ??? Faint or lose consciousness ??? Have a rapid heart rate, very low heart rate, or a new irregular heart rate ??? Have a seizure The 988 counselors will work closely with 911 to get you the care you need. ?? When to seek medical advice Call your healthcare provider right away if any of these occur: ??? Feeling like your symptoms are getting worse ??? Family or friends express concern over your behavior and ask you to seek help ??? Feeling out of control or that you are being controlled by others ??? Unmanageable side effects fromthe prescription medicines. Don't stop your medicines because of the side effects unless you talk with your provider. ??? Feeling like you want to harm yourself or another ??? Unable to care for yourself ??? Worsening hallucinations ??? Worsening delusions or paranoia ??? Worsening depression or anxiety ?? Last Reviewed Date: 2021 ?? 9210-3150 [employer]. All rights reserved. This information is not intended as a substitute for professional medical care. Always follow your healthcare professional's instructions. ?? Patient Care team information Care Team Personnel Name: Manas Bobo DO Position: Reference Physician Member Role: PCP Address: Address: [address] [place] [address]- [place] Name: Anna Yarbrough RN Position: [facility] RN Member Role: Primary Care Nurse Name: Ju Woodard RN Position: [facility] RN Member Role: Primary Care Nurse Name: Suyapa Stevens RN Position: [facility] RN Supv Member Role: Primary Care Nurse Name: Mouna Levy RN Position: [facility] RN Member Role: Primary Care Nurse Name: Sarah Bradford RN Position: [facility] RN Member Role: Primary Care Nurse [facility] Attending Position: [facility] ED Attendings Patient Name: Ciara Samaniego MD Position: [facility] ED Medicine MD Member Role: Admitting Physician Address: Address: [address] [place] [address]- [place] Name: Azra Noriega Position: [facility] ED RN W/OE and Tasks Member Role: Patient Care Provider Care Team Related Persons Name: JANETTE SHINBERLY Address: home [address] [address] Name: HORTENCIA GOODWIN Address: home [address] [place] [address] Name: JANETTE HASKINS Address: home [address] [place] [address] Name: MADISON ANDERSON Address: home [address] [place] [address]
--- OUTSIDE RECORDS SUMMARY | 2023-10-24 06:09 | XMS_ITS | Continuity of Care Document ---
Author Organization [facility] ter Address [address] [place] [id number]- Care Team Providers Care Detective Bureau Chief Name Role Phone Not on Staff, PCP Primary Care Physician Unavail able Encounter [facility] Date(s): 01/30/23 - 01/30/[address] [address]- Encounter Diagnosis Arthritis of knee(Final) - 01/30/23 Therapeutic drug monitoring(Final) - 01/30/23 Discharge Disposition: A-D/C Home Attending Physician: Александр [...] 01/15/2312:52:00 EDT, Aerosol, Route to Pharmacy Electronically, [id number], [facility], 168, cm, 01/14/23 12:12:00 EDT,... Start Date: 01/14/23 Status: Ordered Centrum 1 tablet, By Mouth, Daily, (INDIVIDUALLY WRAPPED AT [facility] [phone]), Maintenance, 06/10/22 10:10:00 EST, ; Start Date: 06/10/22 Status: Ordered diazepam 2 mg oral tablet 1 mg, 0.5, tablet, By Mouth, 2 times a day, Refills 0, Maintenance, 07/08/22 12:48:00 EST, ; Start Date: 07/08/22 Status: Ordered Keppra 750 mg oral tablet 1 tablet = 750 mg, By Mouth, 2 times a day, (INDIVIDUALLY WRAPPED AT [facility] [phone]), Maintenance, 06/10/22 10:11:00 EST, Tablet, ; Start Date: 06/10/22 Status: Ordered Melatonin 3 mg oral tablet 1 tablet = 3 mg, By Mouth, Daily at bedtime, (ALL MEDS ARE INDIVIDUALLY WRAPPED AT [facility] [id number]), Maintenance, 06/10/22 10:08:00 EST, Tablet, ; Start Date: 06/10/22 Status: Ordered Metamucil Powder 1 pack/packet, By Mouth, 2 times a day before breakfast and dinne, BEFORE MEALS (INDIVIDUALLY WRAPPED AT [facility] [phone]), Maintenance, 06/10/22 10:11:00 EST, Powder, ; Start [...] Schizophrenia Confirmed Active Severe obesity Confirmed Active Results Radiology Reports * Exam Date Time Procedure Performing Provider Status 01/30/23 5:29 PM Knee 1 or 2 Views Right Marga Eric (Verified) Notes: (Knee 1 or 2 Views Right) Reason For Exam: with Pain;Trauma RESULT: Knee 1 or 2 Views Right Knee 1 or 2 Views Left, Knee 1 or 2 Views Right, Reason: Trauma; with Pain; Clinical Question(s): Fracture COMPARISON: Right knee radiograph 07/12/2018. FINDINGS: LEFT KNEE: There is no evidence of acute or healing fracture, dislocation or bone lesion. Mild degenerative joint space narrowing of the medial compartment with marginal osteophyte formation of the femoral condyle. There is also some prominence of the tibial spines. Joint space narrowing of the patellofemoral compartment with some small patellar spurs. No osteochondral defects or intra-articular loose bodies. No evidence of joint effusion. RIGHT KNEE: There is no evidence of acute or healing fracture, dislocation or bone lesion. Mild joint spaces narrowing of the medial compartment. Also some mild osseous narrowing of the patellofemoral compartment with patellar spurs. No osteochondral defects or intra-articular loose bodies. No evidence of joint effusion. IMPRESSION: No radiographic evidence of an acute osseous abnormality. Mild degenerative changes of both knees, particularly prominent in the left patellofemoral compartment and in both medial compartments, slightly greater than would be expected for age. WSN: [id number] Ordering Physician: Александр Zuñiga Dictated By: Michael Brooke MD Dictated Date/Time: 01/30/23 5:59 pm Reviewed By: Michael Brooke MD Signed By: Michael Brooke MD Signed Date/Time: 01/30/23 5:59 pm Transcribed By: WILMA Transcribed Date/Time: 01/30/23 5:53 pm * Exam Date Time Procedure Performing Provider Status 01/30/23 5:29 PM Knee 1 or 2 Views Left Ayesha Eric ; Pura (Verified) Notes: (Knee 1 or 2 Views Left) Reason For Exam: with Pain;Trauma RESULT: Knee 1 or 2 Views Left Knee 1 or 2 Views Left, Knee 1 or 2 Views Right, Reason: Trauma; with Pain; Clinical Question(s): Fracture COMPARISON: Right knee radiograph 07/12/2018. FINDINGS: LEFT KNEE: There is no evidence of acute or healing fracture, dislocation or bone lesion. Mild degenerative joint space narrowing of the medial compartment with marginal osteophyte formation of the femoral condyle. There is also some prominence of the tibial spines. Joint space narrowing of the patellofemoral compartment with some small patellar spurs. No osteochondral defects or intra-articular loose bodies. No evidence of joint effusion. RIGHT KNEE: There is no evidence of acute or healing fracture, dislocation or bone lesion. Mild joint spaces narrowing of the medial compartment. Also some mild osseous narrowing of the patellofemoral compartment with patellar spurs. No osteochondral defects or intra-articular loose bodies. No evidence of joint effusion. IMPRESSION: No radiographic evidence of an acute osseous abnormality. Mild degenerative changes of both knees, particularly prominent in the left patellofemoral compartment and in both medial compartments, slightly greater than would be expected for age. WSN: [id number] Ordering Physician: Александр Zuñiga Dictated By: Michael Brooke MD Dictated Date/Time: 01/30/23 5:59 pm Reviewed By: Michael Brooke MD Signed By: Michael Brooke MD Signed Date/Time: 01/30/23 5:59 pm Transcribed By: WILMA Transcribed Date/Time: 01/30/23 5:53 pm Vital Signs Most recent to oldest [Reference Range]: 1 2 3 Height 168 cm (01/30/23 8:13 PM) 168 cm (01/30/23 3:15 PM) Oxygen Saturation [94-100 %] 99 % (01/30/23 8:22 PM) 99 % (01/30/23 6:15 PM) 99 % (01/30/23 3:15 PM) Pulse Rate [55-90 bpm] 80 bpm (01/30/23 8:22 PM) 99 bpm *H* (01/30/23 6:15 PM) 106 bpm *H* (01/30/23 3:15 PM) Blood Pressure [90-138/55-84 mm Hg] 140/70mm Hg *H* (01/30/23 8:22 PM) 152/77mm Hg *H* (01/30/23 6:15 PM) 137/82mm Hg (01/30/23 3:15 PM) Respiratory Rate [16-30 br/min] 17 br/min (01/30/23 8:22 PM) 18 br/min (01/30/23 6:15 PM) 16 br/min (01/30/23 3:15 PM) Temperature [96.8-100.4 DegF] 98.6 DegF (01/30/23 6:15 PM) 98.6 DegF (01/30/23 3:15 PM) Mode of Delivery (Oxygen) Room air (01/30/23 8:22 PM) Room air (01/30/23 6:15 PM) Room air (01/30/23 3:15 PM) Blood pressure sites Arm, right (01/30/23 6:15 PM) Arm, right (01/30/23 3:15 PM) Temperature Route Oral (01/30/23 6:15 PM) Oral (01/30/23 3:15 PM) Dry Weight 165.7 kg (01/30/23 8:13 PM) 165.7 kg (01/30/23 3:15 PM) Dry Weight Obtained Via Patient/family s tated (01/30/23 3:15 PM) Social History Social History Type Response Smoking Status Never smoker entered on: 06/16/14 Sex Note * Yogesh COATES, Александр: PERFORM Event Display: Patient Education Leaflets Authored Date: [id number] RICE ?? [id number] RICE Rest an injury, elevate it, and use ice and compression as directed. RICE stands for rest, ice, compression, and elevation. These can limit pain and swelling after an injury. RICE may be recommended to help treat breaks (fractures), sprains, strains, and bruises or bumps.?? Home care Here are??the details of RICE: ??? Rest. Limit the use of the injured body part. This helps preventfurther damage to the body part and gives it time to heal. In some cases, you may need a sling, brace, splint, or cast to help keep the body part still until it has healed. ??? Ice. Applying ice right after an injury helps relieve pain and swelling. To make an ice pack, put ice cubes in a plastic bag that seals at the top. Wrap the bag in a clean, thin towel or cloth.??Then place it over the injured area. Do this for 15 to 20 minutes every??2 to 3??hours. Continue for the next 1 to 2 days or until your symptoms improve. Never put ice directly on your skin.??Don't ice an area longer than 20 minutes at a time. ??? Compression. Putting pressure on an injury helps reduce swelling and provides support. Wrap the injured area firmly with an elastic bandage or??wrap. Make sure not to wrap the bandage too tightly or you will cut off blood flow to the injured area. If your bandage loosens, rewrapit. ??? Elevation. Keeping an injury raised or elevated??above the level of your heart reduces swelling, pain, and throbbing. For instance, if you have a broken leg, it may help to rest your leg on several pillows when sitting or lying down. Try to keep the injured area elevated as often as possible. ?? Follow-up care Follow up with your healthcare provider as advised. ?? When to seek medical advice Call your healthcare provider right away??if any of these occur: ??? Fever of 100.4??F (38??C) or higher, or as directed by your healthcare provider ??? Chills ??? Increased pain or swelling in the injured body part ??? Injured body part becomes cold, blue, numb, or tingly ??? Signs of infection. These include warmth in the skin, redness, drainage, or bad smell coming from the injured body part. ??? New symptoms ?? Last Reviewed Date: 2021 ?? 5327-0835 The [employer]. All rights reserved. This information is not intended as a substitute for professional medical care. Always follow your healthcare professional's instructions. ?? * Александр Zuñiga MD: PERFORM Event Display: Patient Education Leaflets Authored Date: [id number] Osteoarthritis ?? [id number] Osteoarthritis Osteoarthritis happens??when the cartilage in a joint becomes damaged and worn. This may be from age, wear and tear, overuse of the joint, obesity, or other problems. Osteoarthritis??can affect any joint, but it's most common in??hands, knees, spine, hips, and feet. Symptoms include joint stiffness, and pain. It's also called degenerative joint disease. Home care ??? When a joint is more sore than usual, rest it for 1 or 2 days. ??? Heat can help relieve stiffness. Take a hot bath or apply a heating pad for up to 30 minutes at a time. If symptoms are worse in the morning, using heat just after awakening can help relax the muscle and soothe the joints.? Ice helps relieve pain. It's often used after activity. Use a cold pack wrapped in a thin cloth on the joint for 10 to 15 minutes at a time.? Alternating hot and cold can also help relieve pain. Try this for 20 minutes at a time, several times per day. ??? Exercise helps prevent the muscles and ligaments around the joint from becoming weak.??It also helps maintain function in the joint.??Be as active as you can. Talk to your healthcare provider about what activity program is bestfor you. ??? Excess weight puts a lot of extra strain on weight-bearing joints of the lower back, hips, knees, feet, and ankles. If you are overweight, talk to your provider about a safe and effective weight loss program. ??? Use anti-inflammatory medicines as prescribed for pain. This includes acetaminophen or NSAIDs (nonsteroidal anti-inflammatory drugs) such as ibuprofen or naproxen. Don't take NSAIDs if your provider has told you that you can't take NSAIDS because of other health problems. If needed, topical or injected medicines may be advised. Talk with your provider if these choices aren't enough to manage your pain. Follow the directions on all [id number] medicines. If you're t aking NSAIDs routinely, talk to your provider. ??? Talk with your provider about devices that mighthelp improve your function and reduce pain. ??? Talk with your provider about physical therapy to help strengthen your joints and the nearby muscles. ?? Follow-up care Follow up with your healthcare provider, or as advised. ?? When to get medical advice Call your healthcare provider right away if any of the following occur: ??? Redness or swelling of a painful joint ??? Discharge or pus from a painful joint ??? Fever of??100.4??F (38??C)??or higher,or as directed by your healthcare provider ??? Joint pain that gets worse ??? Decreased ability to move the joint or bear weight on the joint ?? Last Reviewed Date: 2021 ?? 3003-0007 [employer]. All rights reserved. This information is not intended as a substitute for professional medical care. Always follow your healthcare professional's instructions. ?? Patient Care team information Care Team Personnel Name: Anna Yarbrough RN Position: [facility] RN Member Role: Primary Care Nurse Name: Ju Woodard RN Position: [facility] RN Member Role: Primary Care Nurse Name: Wanda Fuller RN Position: [facility] RN Member Role: Primary Care Nurse Name: Not on Staff, PCP Position: [facility] Physician (General Medicine) Member Role: PCP Name: Suyapa Stevens RN Position: [facility] RN Supv Member Role: Primary Care Nurse Name: Sarah Bradford RN Position: [facility] RN Member Role: Primary Care Nurse Name: Александр Zuñiga MD Position: [facility] ED Medicine MD Member Role: Admitting Physician Address: Address: [address] [place] [address] Name: Sirena Florentino RN Position: [facility] ED RN W/OE and Tasks Member Role: Patient Care Provider Name: Marcie Martinez Position: [facility] ED [facility] Care Team Related Persons Name: PULL OVERNILAY Address: home [address] [place] [address] Name: HORTENCIA GOODWIN Address: home [address] [place] [address] Name: JANETTE HASKINS Address: [address] [place] [address] Name: MADISON ANDERSON Address: home [address] [place] [address]
--- OUTSIDE RECORDS SUMMARY | 2023-10-24 06:09 | XMS_ITS | Continuity of Care Document ---
Author Organization [facility] ter Address [address] [place] [address]- Care Team Providers Care Dip Filler Name Role Phone Manas Bobo DO Primary Care Physician [place] [facility] [place] - 08/06/[address] [address]- Discharge Disposition: A-D/C Home Attending Physician: Mikey Garcia MD Admitting Physician: Mikey Garcia MD Referring Physician: Not on Staff, Referring [...] 01/15/2312:52:00 EDT, Aerosol, Route to Pharmacy Electronically, [id number], [facility], 168, cm, 01/14/23 12:12:00 EDT,... Start Date: 01/14/23 Status: Ordered albuterol CFC free 90 mcg/inh inhalation aerosol 180 mcg, 2, puffs, Inhalation, Every 6 hours, PRN, place in blister pack, # 8 Gm, Refills 0, Tot. Refills 0, Maintenance, 08/05/23 15:54:00 EST, Inhaler, Route to Pharmacy Electronically, [id number], [facility]/pharmacy #[id number], 165.7... Start Date: 08/05/23 Status: Ordered Centrum 1 tablet, By Mouth, Daily, (INDIVIDUALLY WRAPPED AT [facility] [phone]), Maintenance, 06/10/22 10:10:00 EST, ; Start Date: 06/10/22 Status: Ordered cloNIDine 0.1 mg oral tablet 0.1 mg, 1, tablet, By Mouth, 4 times a day, PRN, blister pack, # 120 tablet, Refills 0, Tot. Refills 0, Maintenance, Anxiety, 08/06/23 14:32:00 EST, Route to Pharmacy Electronically, [facility]/pharmacy #[id number], Partial fill upon patient request if the prescri... Start Date: 08/06/23 Status: Ordered cyproheptadine 4 mg oral tablet 4 mg, 1, tablet, By Mouth, Daily at bedtime, PRN, for 30 days, If symptons persist maximum 32mg in [address] in blister pack, # 30 tablet, Refills 0, Tot. Refills 0, Acute 09/04/23 15:54:00 EST,Insomnia, 08/05/23 15:54:00 EST, Route to Pharmacy... Start Date: 08/05/23 Stop Date: 09/04/23 Status: Ordered diazepam 2 mg oral tablet 1 mg, 0.5, tablet, By Mouth, 2 times a day, Refills 0, Maintenance, 07/08/22 12:48:00 EST, ; Start Date: 07/08/22 Status: Ordered Keppra 750 mg oral tablet 1 tablet = 750 mg, By Mouth, 2 times a day, place in blister pack, # 60 tablet, 0 Refills, Maintenance, 08/05/23 16:18:00 EST, Tablet, [facility]/pharmacy #[id number], Partial fill upon patient request if the prescription is for a schedule II opioid drug., 165.7,... Start Date: 08/05/23 Stop Date: 09/04/23 Status: Ordered Keppra 750 mg oral tablet 1 tablet = 750 mg, By Mouth, 2 times a day, (INDIVIDUALLY WRAPPED AT [facility] [phone]), Maintenance, 06/10/22 10:11:00 EST, Tablet, ; Start Date: 06/10/22 Status: Ordered Melatonin 3 mg oral tablet 1 tablet = 3 mg, By Mouth, Daily at bedtime, (ALL MEDS ARE INDIVIDUALLY WRAPPED AT [facility] [phone]), Maintenance, 06/10/22 10:08:00 EST, Tablet, ; Start Date: 06/10/22 Status: Ordered Metamucil Powder 1 pack/packet, By Mouth, 2 times a day before breakfast and dinne, BEFORE MEALS (INDIVIDUALLY WRAPPED AT [facility] [phone]), Maintenance, 06/10/22 10:11:00 EST, Powder, ; Start Date: 06/10/22 Status: Ordered Nortrel 1/35 oral tablet 1 tablet, By Mouth, Daily, Maintenance, 09/15/22 10:01:00 EST, Tablet, ; Start Date: 09/15/22 Status: Ordered OXcarbazepine 150 mg oral tablet 450 mg, By Mouth, 2 times a day, place in blister pack, # 180 capsule, Refills 0, Tot. Refills 0, Maintenance, 08/05/23 15:54:00 EST, Route to Pharmacy Electronically, [facility]/pharmacy #[id number], Partial fill upon patient request if the prescription is for a... Start Date: 08/05/23 Stop Date: 09/04/23 Status: Ordered perphenazine 2 mg oral tablet [...] List Condition Confirmation Course Effective Dates Status H ealth Status Informant Anxiety Confirmed Active H/O wheezing Confirmed Active Intellectual disability Confirmed Active Morbid obesity Confirmed Active Partial epilepsy Confirmed Active Schizophrenia Confirmed Active Severe obesity Confirmed Active Vital Signs Most recent to oldest [Reference Range]: 1 2 3 Height 165.7 cm (08/06/23 1:31 AM) 165.7 cm (08/04/23 1:04 AM) 165.7 cm (08/03/23 4:19 PM) Oxygen Saturation [94-100 %] 96 % (08/06/23 3:32 PM) 98 % (08/06/23 1:31 AM) 100 % (08/05/23 9:12 AM) Pulse Rate [55-90 bpm] 100 bpm *H* (08/06/23 3:32 PM) 85 bpm (08/06/23 1:31 AM) 87 bpm (08/05/23 9:12 AM) Blood Pressure [90-138/55-84 mm Hg] 136/102mm Hg (08/06/23 3:32 PM) 145/77mm Hg *H* (08/06/23 1:31 AM) 147/107mm Hg *H* (08/05/23 9:12 AM) Respiratory Rate [16-30 br/min] 18 br/min (08/06/23 3:32 PM) 18 br/min (08/06/23 1:31 AM) 16 br/min (08/05/23 9:12 AM) Temperature [96.8-100.4 DegF] 98.3 DegF (08/06/23 3:32 PM) 98.4 DegF (08/06/23 1:31 AM) 97.8 DegF (08/05/23 9:12 AM) Mode of Delivery (Oxygen) Room air (08/06/23 3:32 PM) Room air (08/06/23 1:31 AM) Room air (08/05/23 9:12 AM) Blood pressure sites Arm, left (08/06/23 1:31 AM) Arm, left (08/04/23 7:24 PM) Arm, left (08/04/23 1:35 PM) Temperature Route Oral (08/06/23 3:32 PM) Oral (08/06/23 1:31 AM) Oral (08/05/23 9:12 AM) Social History Social History Type Response Smoking Status Never smoker entered on: 06/16/14 Sex Note * Mikey Garcia MD: PERFORM Event Display: Patient Education Leaflets Authored Date: [id number] Schizoaffective Disorder ?? [id number] Schizoaffective Disorder Schizoaffective disorder is a serious chronic mental health condition that has symptoms of schizophrenia (hallucinations or delusions) and symptoms of a mood disorder (mk and depression). Schizoaffective disorder is a rare condition. It's often incorrectly diagnosed at first as bipolar disorder. It can take time to tell the difference between schizoaffective disorder and schizophreniaand mood disorders. Schizoaffective disorder is life-long (chronic). Though it is important to realize that symptoms can lesson with time and treatment. It makes working and living in society difficult. Schizoaffective disorder is a psychotic disorder. Someone with schizoaffective disorder has thoughts and emotions that are a distortion of external reality. They perceive a unique reality from those around them. The difference between reality and what you think become blurred in your mind.??The cause of schizoaffective disorder is not yet known. It's believed to be a result of genetic and biological factors such as brain chemistry and structure. Symptoms of schizoaffective disorder??include: ??? Seeing or hearing things that are not there (hallucinations). Hearing (auditory) hallucinationsare most common. ??? False beliefs (delusions) ??? Disorganized thinking and speech ??? Severe anxiety ??? Feeling unreal ??? Paranoia ??? Insomnia ??? Trouble thinking or concentrating clearly ??? De pression, feeling suicidal ??? Withdrawal from those around you (social withdrawal) Depression is 1 type of mood disorder that is related to brain chemistry. It is common in people with schizoaffective disorder. You may feel a lack of interest in normal activities. Sometimes there is sadness or guilt without any clear reason. Thinking may become slow and there can be a lack energyor feeling of hopelessness. Some people have thoughts of harming themselves at this stage. Thoughtscan even turn to suicide. Bipolar disorder is [...] to a lifestyle that is disorganized and chaotic. It can include risky behavior (spending sprees, sexual acting out, or drug use). In later stages, it may affect eating (no interest in food) and sleeping (unable to sleep for days at a time). Speech may speed up and become hard for others to understand. You may appear to others as if you are in your own world. It is possibly hereditary which means a person is more likely to get this illness if a family member has it. Use of drugs such as marijuana in certain people, amphetamines (speed) and cocaine increase the risk of getting this disorder. People with this illness will generally have to take medicines to treat it long-term. Home care ??? Ongoing care and support helps people manage this illness. Find a healthcare providerand therapist who meet your needs. Don't be discouraged if you have to visit a number of therapistsbefore you find one that works well with you. ??? Make sure to take your prescribed medicine as advised, even if you think you don???t need it. Don't change the dose or stop the medicine unless you talk with your provider. Don't share your medicines or use another person's medicines. ??? Talk to your provider if you have trouble paying for your medicine. Ask them to help you find resources to help with this. ??? Get the required lab work on schedule to check your overall health and make sure you are getting the right amount of medicine ??? Seek support from trusted friends or family by talking about your feelings and thoughts. Ask them to help you recognize behavior changes early so you canget help. If needed, your healthcare provider can adjust your medicines and stop serious problems from developing. ??? Tell each of your healthcare providers about all of the prescription medicines, txcg-mdc-qryxpfk medicines, vitamins, and supplements you take. This includes your dentist.??Certainsupplements interact with medicines and can cause dangerous side effects.?? Ask your pharmacist about medicine interactions before taking a new medicine or supplement. ??? If you are having trouble managing workplace issues, or caring for yourself because of this illness, contact your local Americans with Disabilities (ADA) office to see if they can help. ??The U.S. Department of Justice operatesa toll-free ADA information line at 182-896-3251 (Voice) or 270-813-3608 (TTY). ??They can help youfind a local office. ??? Don't use alcohol, amphetamines, cocaine, or related street??drugs to manage symptoms. These will interact with your medicines and make your condition worse. If your symptomsaren't being controlled, go back to your provider. You may need the dose of your current medicine changed or a different medicine. ?? Follow-up care Follow up with your healthcare provider, or??as advised. ?? Call [facility] Call or text 988 if you ??? Have thoughts of harming yourself or others. You will be connected to trained crisis counselors. ??? Have trouble breathing ??? Are very confused ??? Are very drowsy or have trouble awakening ???Faint or lose consciousness ??? Have a rapid [...] side effects fromthe prescription medicines. Don't stop or change the way you take your medicines because of the side effects unless you talk with your provider. ??? Feeling like you want to harm yourself or another ??? Unable to care for yourself ??? Worsening hallucinations ??? Worsening delusions or paranoia ???Worsening depression or anxiety ?? Last Reviewed Date: 2023 ?? [id number] [employer]. All rights reserved. This information is not intended as a substitute for professional medical care. Always follow your healthcare professional's instructions. ?? Patient Care team information Care Team Personnel Name: Manas Bobo DO Position: Reference Physician Member Role: PCP Address: Address: [address] [place] [id number] Name: Anna Yarbrough RN Position: S RN Member Role: Primary Care Nurse Name: Ju Woodard RN Position: S RN Member Role: Primary Care Nurse Name: Wanda Fuller RN Position: S RN Member Role: Primary Care Nurse Name: Suyapa Stevens RN Position: S RN Member Role: Primary Care Nurse Name: Sarah Bradford RN Position: S RN Member Role: Primary Care Nurse Care Team Related Persons Name: NILAY ROSS Address: home [address] [place] [address] Name: HORTENCIA GOODWIN Address: home [address] [place] [address] Name: JANETTE HASKINS Address: home [address] [place] [address] Name: MADISON ANDERSON Address: home [address] [place] [address]
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
--- OUTSIDE RECORDS SUMMARY | 2023-10-24 06:09 | XMS_ITS | Continuity of Care Document ---
Author Organization [facility] ter Address [address] [place] [address]- Care Team Providers Care Solution Consultant Name Role Phone Manas Bobo DO Primary Care Physician Encounter [facility] Date(s): 10/06/22 - 10/10/[address] [address]- Encounter Diagnosis Schizoaffective disorder(Final) - 10/06/22 Discharge Disposition: Transfer to [facility] Facility Attending Physician: Johan Bailey MD Admitting Physician: Johan Bailey MD Referring Physician: Not on Staff, Referring MD Allergies, Adverse Reactions, Alerts No Known Allergies Medications acetaminophen 325 mg oral tablet 650 mg, 2, tablet, By Mouth, Every 6 hours, PRN, Maintenance, pain/fever <100F, 09/15/22 10:05:00 EST, ; Start Date: 09/15/22 Status: Ordered Centrum 1 tablet, By Mouth, Daily, (INDIVIDUALLY WRAPPED AT JAMEL [phone]), Maintenance, 06/10/22 10:10:00 EST, ; Start Date: 06/10/22 Status: Ordered diazepam 2 mg oral tablet 1 mg, 0.5, tablet, By Mouth, 2 times a day, Refills 0, Maintenance, 07/08/22 12:48:00 EST, ; Start Date: 07/08/22 Status: Ordered Keppra 750 mg oral tablet 1 tablet = 750 mg, By Mouth, 2 times a day, (INDIVIDUALLY WRAPPED AT JAMEL [phone]), Maintenance, 06/10/22 10:11:00 EST, Tablet, ; Start Date: 06/10/22 Status: Ordered Melatonin 3 mg oral tablet 1 tablet = 3 mg, By Mouth, Daily at bedtime, (ALL MEDS ARE INDIVIDUALLY WRAPPED AT JAMEL [phone]), Maintenance, 06/10/22 10:08:00 EST, Tablet, ; Start Date: 06/10/22 Status: Ordered Metamucil Powder 1 pack/packet, By Mouth, 2 times a day before breakfast and dinne, BEFORE MEALS (INDIVIDUALLY WRAPPED AT JAMEL [phone]), Maintenance, 06/10/22 10:11:00 EST, Powder, ; Start [...] Range]: 1 2 3 Height 168 cm (10/09/22 4:16 PM) 168 cm (10/08/22 7:11 PM) 168 cm (10/07/22 3:06 PM) Weight 165.5 kg (10/09/22 4:16 PM) 165.5 kg (10/08/22 7:11 PM) 165.5 kg (10/07/22 3:06 PM) Oxygen Saturation [94-100 %] 99 % (10/10/22 6:17 AM) 100 % (10/09/22 9:23 PM) 100 % (10/09/22 4:16 PM) Pulse Rate [55-90 bpm] 80 bpm (10/10/22 6:17 AM) 86 bpm (10/09/22 9:23 PM) 89 bpm (10/09/22 4:16 PM) Body Mass Index [18.5-24.99 kg/m2] 58.64 kg/m2 *>HHI* (10/09/22 4:16 PM) 58.64 kg/m2 *>HHI* (10/08/22 7:11 PM) 58.64 kg/m2 *>HHI* (10/07/22 3:06 PM) Blood Pressure [90-138/55-84 mm Hg] 99/63mm Hg (10/10/22 6:17 AM) 119/63mm Hg (10/09/22 9:23 PM) 102/62mm Hg (10/09/22 4:16 PM) Respiratory Rate [16-30 br/min] 18 br/min (10/10/22 6:17 AM) 18 br/min (10/09/22 9:23 PM) 18 br/min (10/09/22 4:16 PM) Temperature [96.8-100.4 DegF] 97.9 DegF (10/09/22 9:23 PM) 98.1 DegF (10/09/22 4:16 PM) 98 DegF (10/09/22 9:59 AM) Mode of Delivery (Oxygen) Room air (10/10/22 6:17 AM) Room air (10/09/22 9:23 PM) Room air (10/09/22 4:16 PM) Blood pressure sites Arm, right (10/09/22 4:16 PM) Arm, right (10/08/22 7:11 PM) Arm, right (10/08/22 7:00 AM) Temperature Route Oral (10/09/22 9:23 PM) Oral (10/09/22 4:16 PM) Oral (10/09/22 9:59 AM) Dry Weight 165.5 kg (10/09/22 4:16 PM) 165.5 kg (10/08/22 7:11 PM) 165.5 kg (10/07/22 3:06 PM) Social History Social History Type Response Smoking Status Never smoker entered on: 06/16/14 Sex EKG study * Event Display: ECG 12-Lead Authored Date: Please click on pdf link to open report * Event Display: ECG 12-Lead Authored Date: [id number] Ventricular Rate: 70 BPM Atrial Rate: 70 BPM P-R Interval: 180 ms QRS Duration: 102 ms Q-T Interval: 400 ms QTC Calculation(Bazett): 432 ms P Summit Station: 54 degrees R Summit Station: 71 degrees T Summit Station: 48 degrees Normal sinus rhythm Normal ECG When compared with ECG of 26-JUN-2022 14:30, No significant change was found Confirmed by SERG MAE ([id number]) on 10/07/2022 12:20:06 PM [place]: SERG MAE [facility] Progress note * Amita Ann NP: PERFORM Event Display: [facility] Authored Date: [id number] Patient: ??MONICA DEGROOT ? Age:??32 Years?Sex:??Female?:??1990?? Subjective ?? Chief complaint:?Medication management ?? Patient seen, chart reviewed, and discussed with treatment team.? Interval History: No acute overnight events.??No restraints/seclusions/IMs since Thursday (>45 hours). On Thursday, patient became combative and was spitting at staff, throwing??items, unable to be redirected, refusing to stay??in her room. She was given IM medications at the time. Wasbanging her head on her door and staring at staff through the door after that. Later that??evening she took PO medications for agitation. No PRN medications??in??> 42 hours. Yesterday, she??was escorted to [facility] to take a shower. She became upset and??cut the shower short, telling the tech, Let's go, I want to go. Later that evening she got upset again because she said she thought she was david ng discharged. She was able to be redirected. Today she was escorted to [facility] to take a shower which she did without incident. ?? On approach, Monica is sitting in her doorway, facing into [facility], eating a snack. She is calm and cooperative, stating that she feels as if she is in safe hands and won't??choke myself. She admits that she became upset at her senior living??when she was told she couldn't ride in the van, but she has been??feeling better here, less angry, and states that she wouldn't act out if a similar eventhappened when she returned to her senior living. She is feeling very positive because she states that she was told that she would be moving??back to her senior living in [place] on December 22. Observed talking to herself earlier today. Denies any adverse effects on current medication regimen. Reports good appetite and eating meals regularly. ??Sleeping well overnight, reporting no sleep disturbances,daytime sedation, or fatigue. ??Unknown if she has been utilizing a CPAP. ADLs??appear attentive without incident. ??Able to make needs known.??Patient denies any additional??symptoms concerning for anxiety, depression, mk, psychosis or PTSD. Patient denies any suicidal ideation, homicidal ideation or desires for self-injurious behaviors.? Review of Systems Pertinent positives as listed above in HPI. ??Otherwise, remainder of review of systems negative. Objective Vital Signs?? Temperature: 98 DegF (10/09/22 09:59:00) Temperature Route: Oral (10/09/22 09:59:00) Pulse Rate:??100 bpm??High (10/09/22 09:59:00) Respiratory Rate: 19 br/min (10/09/22 09:59:00) Systolic Blood Pressure:??145 mm Hg??High (10/09/22 09:59:00) Diastolic Blood Pressure:??86 mm Hg??High (10/09/22 09:59:00) Blood pressure sites: Arm, right (10/08/22 19:11:00) Mean Arterial Pressure: 89 mm Hg (10/08/22 19:11:00) Pulse Pressure: 59 mm Hg (10/09/22 09:59:00) Oxygen Saturation: 100 % (10/09/22 09:59:00) Mode of Delivery (Oxygen): Room air (10/08/22 19:11:00) ? Result type:?ECG 12-Lead Result date:?October 06, 2022 23:46 EDT Result status:?Auth (Verified) Result title:?12 Lead ECG Performed by:?Serg Mae MD on October 06, 2022 23:46 EDT Verified by:?Serg Mae MD on October 06, 2022 23:46 EDT Encounter info:?[id number], [facility], Emergency, 10/06/2022 -?? Contributor system:?MUSE ?? [id number] Ventricular Rate: 70 ??BPM Atrial Rate: 70 ??BPM P-R Interval: 180 ??ms QRS Duration: 102 ??ms Q-T Interval: 400 ??ms QTC Calculation(Bazett): 432 ??ms P Summit Station: 54 ??degrees R Summit Station: 71 ??degrees T Summit Station: 48 ??degrees Normal sinus rhythm Normal ECG When compared with ECG of 26-JUN-2022 14:30, No significant change was found Confirmed by SERG MAE ([id number]) on 10/07/2022 12:20:06 PM ?? [place]: SERG MAE ? Physical Exam ?? MENTAL STATUS EXAMINATION Appearance: well-groomed, dressed in a hospital gown, healthy, obese; normal eye contact; Attitude: cooperative Motor Activity: calm, no involuntary movements or abnormalities of motor tone; coordination and gait unremarkable Sight and hearing: intact Mood: euthymic, not anxious?? Affect: appropriate, full range, normal intensity, congruent with mood Speech: normal rate; normal prosody - spontaneous, baseline speech impediment - poor articulation, clear tone, appropriately placed inflections; normal volume Perception: no impairment - denies auditory and visual hallucinations; no objective impairment, preoccupation, or responding to internal stimuli?? Cognition: alert, oriented to person/place/time/situation/object, memory intact, concrete, good attention span, able to concentrate Judgment: poor Insight: fair Thought Process: normal productivity, goal-directed Thought Content: congruent to mood and circumstances; denies current suicidal ideas, suicide plans,and suicide intent, including active or passive thoughts of suicide or ; denies current aggressive or psychotic ideas, including thoughts of physical or sexual aggression or homicide? Adherence: good Reliability: reliable historian Suicidality/Self-destructive Behavior: none Homicidality/Violence: none?? _ Inpatient Medications Medications (11) Active SCHEDULED: (6) Diazepam 2 mg Tablet (diazepam 2 mg oral tablet) ??1 mg, By Mouth, 2 times a day Keppra 500mg Tablet (Keppra 500 mg oral tablet) ??750 mg, By Mouth, 2 times a day Melatonin 3 mg Tablet (Melatonin Tablet) ??3 mg, By Mouth, Daily at bedtime Perphenazine 2 mg Tablet (perphenazine 2 mg oral tablet) ??4 mg, By Mouth, 2 times a day Topiramate 100 mg Tablet (Topiramate Tablet) ??100 mg, By Mouth, Daily at bedtime Trazodone 50 mg Tablet (traZODone 50 mg oral tablet) ??50 mg, By Mouth, Daily at bedtime CONTINUOUS: (0) PRN: (5) diphenhydrAMINE 25 mg Tablet (Benadryl Tablet) ??50 mg, By Mouth, Every 6 hours Haloperidol 5 mg Tablet (haloperidol 5 mg oral tablet) ??5 mg, By Mouth, Every 6 hours Lorazepam 2 mg Tablet (Ativan 2 mg oral tablet) ??2 mg, By Mouth, Every 6 hours Perphenazine 2 mg Tablet (perphenazine 2 mg oral tablet) ??4 mg, By Mouth, Every 4 hours Trazodone 50 mg Tablet (traZODone 50 mg oral tablet) ??50 mg, By Mouth, Daily at bedtime ? Results Recent Labs No labs resulted between 10/08/2022 00:00 and 10/09/2022 15:37? Assessment/Plan ?? 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 The emergency psychiatry service was consulted for assistance with medication management. Initial psychiatric evaluation is notable for acute same-day onset of frustrated mood with??restricted affect,??denial of??any recent perceptual disturbances at odds with recent reports of self-dialoguing in the ED, minimization/denial of or actual failure to recall??precipitating events (property destruction), concrete thought form??consistent with chronic??intellectual disability??conveying desires to return home without gross disorganization??or delusion, and likely presence??of impulse control deficits evidenced by??aforementioned destructive behaviors.??Although no seizure-like activity has been reported, given patient's history of 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 Patient did incidentally also??admit to nonadherence to CPAP for obstructive sleep apnea, which??might be contributing to her symptoms.??With further rule out of??medical etiologies, this presentation??would be most??consistent with unspecified psychotic disorder, r/o schizoaffective disorder, bipolar??type, early/recurrent manic episode with psychotic??features,??vs. unspecified trauma-/stressor-related disorder, r/o recurrent adjustment disorder with mixed disturbance of emotions and conduct, vs. unspecified??disruptive, impulse-c ontrol, and conduct disorder, r/o intermittent explosive disorder??associated with mild intellectual??disability. Diagnostic clarification is deferred to the next/longitudinal level of care. Explained to the patient the differential diagnoses, treatment options, risks of untreated illness, and risks/benefits of treatment. See below for additional details on treatment recommendations. 10/09/2022 - Patient received IM medications two nights ago but has not required restraints/seclusions/IMs or PO medications for agitation since that night. Has been redirectable since then. Denies suicidal and homicidal ideation and desire for nonsuicidal self-injury. States that she will be safe and will not act out if she returns to her senior living. No adverse effects from increase in Trilafon. ?? 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 Recommendations: -Disposition as per Crisis Services, albeit currently a bed search for inpatient psychiatric hospitalization. -Continue perphenazine at 4 mg PO twice daily, as amended on 10/07/22 -Restart topiramate 100 mg PO QHS for mood stabilization. -Continue diazepam 1 mg PO BID. Outpatient psychiatric prescriber reportedly increased dose to 1 mgQAM + 2 mg QHS 1.5 weeks ago for unclear reasons, but would recommend continuing lower dose to minimize risk of paradoxical disinhibition/agitation for which patient is at risk by virtue of developmental delay. -Continue trazodone 50 mg PO QHS with additional 50 mg PO QHS PRN insomnia. -Start perphenazine 2 mg PO Q6H PRN agitation/psychosis/severe anxiety -Would note that these medications are only being utilized in the ER while the patient awaits placement. Long-term need for these medications will need to be assessed by the patient's future treatingpsychiatrist. -Seclusion or restraint may only be used as interventions of last resort in the management of severe agitation in patient. If they are used, seclusion and restraint episodes should be as short as possible, dignified, and as safe as possible for all involved. Patient preference should always be considered when feasible. -Follow-up baseline labs including TSH with reflex T4, magnesium, and serum ethanol, ??to rule out organic etiology of presenting symptoms and establish prescribing parameters. -Follow-up serum ethanol??and??expanded urine toxicology. ?? -ECG for baseline QT/QTc given potentially QT-prolonging polypharmacy. -Would also consider checking levetiracetam level +/- imaging or Neuro consult to r/o unwitnessed or nonconvulsive seizure activity with postictal agitation/psychosis. -Please optimize treatment for DEA to optimize sleep quality for mood stabilization and safety/effectiveness of current pharmacotherapy. ?? Please feel free to contact the Psychiatry consult service (call [phone] or page [phone]) with any questions or concerns.? Case discussed with attending psychiatrist, Dr. Zaheer Bryan. ? Amita Ann BA MSN [facility] Services Division of Consultation-Liaison Psychiatry [facility] ?? * Zaheer Bryan DO: PERFORM Event Display: Progress Note Hospital Authored Date: Supervising Physician: Patient was not seen by this expert medical writer, but chart reviewed and discussed the case and its management??with??Amita Ann,??[facility] as documented. ??I agree with the assessment and plan as documented above based upon her evaluation.? No chemical sedation nor restraints within the last 48 hours. Monica Degroot was transferred to [facility] earlier this morning, 10/10/22 for inpatient psychiatric stabilization. ?? Zaheer Bryan D.O.?? Supervisor Laboratory, Emergency Psychiatry Services Division of Consultation-Liaison Psychiatry Department of Psychiatry [facility] ?? Patient Care team information Care Team Personnel Name: Jeramie DO Joshrenardtyree Position: Reference Physician Member Role: PCP Address: Address: [address] [place] [id number]- [place] Name: Sahara Cruz Position: [facility] RN Member Role: Primary Care Nurse Name: Anna Yarbrough RN Position: [facility] RN Member Role: Primary Care Nurse Name: Ju Woodard RN Position: [facility] RN Member Role: Primary Care Nurse Name: Wanda Fuller RN Position: [facility] RN Member Role: Primary Care Nurse Name: Suyapa Stevens RN Position: [facility] RN Supv Member Role: Primary Care Nurse Name: Sarah Bradford RN Position: [facility] RN Member Role: Primary Care Nurse [facility] Attending Position: [facility] ED Attendings Patient Name: Katty Grady RN Position: [facility] ED RN W/OE and Tasks Member Role: Patient Care Provider Name: Johan Bailey MD Position: [facility] ED Medicine MD Member Role: Admitting Physician Address: Address: [address] [place] [address] [place] [address]- Care Team Related Persons Name: NILAY ROSS Address: home [address] [place] [address] Name: HORTENCIA GOODWIN Address: home [address] [place] [address] Name: JANETTE HASKINS Address: home [address] [place] [address] Name: MADISON ANDERSON Address: [address] [place] [address]
--- OUTSIDE RECORDS SUMMARY | 2023-10-24 06:09 | XMS_ITS | Continuity of Care Document ---
Author Organization [facility] ter Address [address] [place] [id number]- Care Team Providers Care House Worker General Name Role Phone Manas Bobo DO Primary Care Physician Encounter [facility] Date(s): 09/14/22 - 09/15/[address] [address]- Encounter Diagnosis Mental and behavioral problem(Final) - 09/14/22 Discharge Disposition: A-D/C Home Attending Physician: Mikey [...] By Mouth, Daily, (INDIVIDUALLY WRAPPED AT JAMEL [phone]), Maintenance, 06/10/22 10:10:00 EST, ; Start Date: 06/10/22 Status: Ordered diazepam 2 mg oral tablet 1 mg, 0.5, tablet, By Mouth, 2 times a day, Refills 0, Maintenance, 07/08/22 12:48:00 EST, ; Start Date: 07/08/22 Status: Ordered Keppra 750 mg oral tablet 1 tablet = 750 mg, By Mouth, 2 times a day, (INDIVIDUALLY WRAPPED AT JAMEL [phone]), Maintenance, 06/10/22 10:11:00 EST, Tablet, ; Start Date: 06/10/22 Status: Ordered Melatonin 3 mg oral tablet 1 tablet = 3 mg, By Mouth, Daily at bedtime, (ALL MEDS ARE INDIVIDUALLY WRAPPED AT JAMEL [phone]), Maintenance, 06/10/22 10:08:00 EST, Tablet, ; Start Date: 06/10/22 Status: Ordered Metamucil Powder 1 pack/packet, By Mouth, 2 times a day before breakfast and dinne, BEFORE MEALS (INDIVIDUALLY WRAPPED AT JAMEL [phone]), Maintenance, 06/10/22 10:11:00 EST, Powder, ; Start [...] 3 Oxygen Saturation [94-100 %] 100 % (09/15/22 8:45 AM) 99 % (09/15/22 3:53 AM) 96 % (09/14/22 9:36 PM) Pulse Rate [55-90 bpm] 89 bpm (09/15/22 8:45 AM) 75 bpm (09/15/22 3:53 AM) 92 bpm *H* (09/14/22 9:36 PM) Blood Pressure [90-138/55-84 mm Hg] 133/83mm Hg (09/15/22 8:45 AM) 134/66mm Hg (09/15/22 3:53 AM) 113/67mm Hg (09/14/22 9:36 PM) Respiratory Rate [16-30 br/min] 19 br/min (09/15/22 8:45 AM) 20 br/min (09/15/22 3:53 AM) 20 br/min (09/14/22 9:36 PM) Temperature [96.8-100.4 DegF] 97.4 DegF (09/15/22 8:45 AM) 97.7 DegF (09/15/22 3:53 AM) 98.1 DegF (09/14/22 9:36 PM) Liters per Minute 0 L/min (09/15/22 8:45 AM) Mode of Delivery (Oxygen) Room air (09/15/22 8:45 AM) Room air (09/15/22 3:53 AM) Room air (09/14/22 9:36 PM) Blood pressure sites Arm, right (09/15/22 8:45 AM) Arm, right (09/15/22 3:53 AM) Arm, right (09/14/22 9:36 PM) Temperature Route Oral (09/15/22 8:45 AM) Oral (09/15/22 3:53 AM) Oral (09/14/22 9:36 PM) Social History Social History Type Response Smoking Status Never smoker entered on: 06/16/14 Sex Note * Mikey Garcia MD: PERFORM Event Display: Patient Education Leaflets Authored Date: [id number] Schizoaffective Disorder ?? [id number] Schizoaffective Disorder Schizoaffective disorder is a serious [...] about all of the prescription medicines, ove g-wyd-lpxryxa medicines, and supplements you take. This includes [...] operates a toll-free ADA information line at 792-779-0347 (Voice) or 293-976-7423 (TTY). ??They can help you find a [...] anxiety ?? Last Reviewed Date: 2021 ?? [id number] [employer]. All rights reserved. This information is not intended as a substitute for professional medical care. Always follow your healthcare professional's instructions. ?? Patient Care team information Care Team Personnel Name: Manas Bobo DO Position: Reference Physician Member Role: PCP Address: Address: [address] [place] [address] Name: Sahara Cruz Position: [facility] RN Member Role: Primary Care Nurse Name: Anna Yarbrough RN Position: [facility] RN Member Role: Primary Care Nurse Name: Ju Woodard RN Position: S RN Member Role: Primary Care Nurse Name: Wanda Fuller RN Position: S RN Member Role: Primary Care Nurse Name: Suyapa Stevens RN Position: [facility] RN Supv Member Role: Primary Care Nurse Name: Sarah Bradford RN Position: [facility] RN Member Role: Primary Care Nurse Name: Cintia San RN Position: [facility] ED RN W/OE and Tasks Member Role: Patient Care Provider Name: Apryl Mccallum Position: [facility] ED TA [facility] Member Role: Accounting Teacher Name: Mikey Garcia MD Position: [facility] ED Medicine MD Member Role: Admitting Physician Address: Address: [address] [place] [id number]- Care Team Related Persons Name: SURG TECHNILAY Address: home [address] [place] [address] [address] [place] [address] Name: HORTENCIA GOODWIN Address: home [address] [place] [address] Name: JANETTE HASKINS Address: home [address] [place] [address] Name: MADISON ANDERSON Address: home [address] [place] [address]
--- OUTSIDE RECORDS SUMMARY | 2023-10-24 06:09 | XMS_ITS | Continuity of Care Document ---
Author Organization [facility] Address [address] [place] [id number]- Care Team Providers Care Tow Motor Operator Name Role Phone Not on Staff, PCP Primary Care Physician Unavail able [place] [facility] [place]13[place] - 05/14/[address] [address]- Encounter Diagnosis Agitation(Final) - 05/13/21 Schizophrenia(Final) - 05/13/21 Discharge Disposition: A-D/C Home Attending Physician: Tete Culver MD Admitting Physician: Tete Culver MD Referring Physician: Not on Staff, Referring MD Allergies, Adverse Reactions, Alerts Substance Reaction Severity Status NKA Active Medications acetaminophen 325 mg oral tablet 650 [...] 3 Oxygen Saturation [94-100 %] 100 % (05/14/21 9:47 AM) 95 % (05/14/21 5:44 AM) 99 % (05/13/21 9:28 PM) Pulse Rate [55-90 bpm] 83 bpm (05/14/21 9:47 AM) 82 bpm (05/14/21 5:44 AM) 85 bpm (05/13/21 9:28 PM) Blood Pressure [90-138/55-84 mm Hg] 150/93mm Hg *H* (05/14/21 9:47 AM) 144/96mm Hg *H* (05/14/21 5:44 AM) 125/82mm Hg (05/13/21 9:28 PM) Respiratory Rate [16-30 br/min] 20 br/min (05/14/21 9:47 AM) 16 br/min (05/14/21 5:44 AM) 17 br/min (05/13/21 9:28 PM) Temperature [96.8-100.4 DegF] 97.9 DegF (05/14/21 9:47 AM) 98.2 DegF (05/13/21 9:28 PM) 98.7 DegF (05/13/21 9:37 AM) Mode of Delivery (Oxygen) Room air (05/14/21 9:47 AM) Room air (05/14/21 5:44 AM) Room air (05/13/21 9:28 PM) Blood pressure sites Arm, left (05/14/21 9:47 AM) Arm, left (05/14/21 5:44 AM) Temperature Route Oral (05/14/21 9:47 AM) Oral (05/13/21 9:28 PM) Oral (05/13/21 9:37 AM) Social History Social History Type Response Smoking Status Never smoker entered on: 06/16/14 Sex Female
--- OUTSIDE RECORDS SUMMARY | 2023-10-24 06:09 | XMS_ITS | Continuity of Care Document ---
Author Organization [facility] Address [address] [place] [id number]- Care Team Providers Care Director Social Name Role Phone Not on Staff, PCP Primary Care Physician Unavail able [place] [facility] [place] - 04/30/[address] [address]- [facility] Encounter Diagnosis Agitation(Final) - 04/29/20 Schizophrenia(Final) - 04/29/20 Discharge Disposition: A-D/C Home Attending Physician: Daria Holt MD Admitting Physician: Daria Holt MD Referring Physician: Not on Staff, Referring MD Allergies, Adverse Reactions, Alerts Substance Reaction Severity Status NKA Active Medications Ibuprofen Maintenance, 04/26/14 8:43:56 Start Date: 04/26/14 Status: Ordered Keppra 750 mg oral tablet 1 tablet = 750 mg, By Mouth, 2 times a day, # 60 tablet, 6 Refills, Maintenance, 05/22/16 16:50:22 Start Date: 05/22/16 Stop Date: 12/18/16 Status: Ordered multi vitamin multi vitamin, Refills 0, Maintenance, 04/26/14 8:44:29, Compound Start Date: 04/26/14 Status: Ordered Necon 1/35 1, tablet, By Mouth, Daily, Maintenance, 04/26/14 8:43:38 Start Date: 04/26/14 Status: Ordered ProAir HFA 2 puffs, Inhalation, 4 times a day, 0 Refills, Maintenance, 04/26/14 8:43:46 Start Date: 04/26/14 Status: Ordered Trilafon Tablet By Mouth, 2 times a day, Maintenance, 04/26/14 8:43:19 Start Date: 04/26/14 Status: Ordered Tylenol Caplet = 650 mg, By Mouth, Every 4 hours, 0 Refills, Maintenance, 04/26/14 8:44:12 Start Date: 04/26/14 Status: Ordered Valium Tablet Maintenance, 04/26/14 8:43:26 Start Date: 04/26/14 Status: Ordered Problem List Condition Effective Dates Status Health Status Inform ant Anxiety(Confirmed) Active H/O wheezing(Confirmed) Active Morbid obesity(Confirmed) Active Partial epilepsy(Confirmed) Active Schizophrenia(Confirmed) Active Vital Signs Most recent to oldest [Reference Range]: 1 2 Oxygen Saturation [94-100 %] 97 % (04/30/20 4:27 AM) 98 % (04/29/20 7:39 PM) Pulse Rate [55-90 bpm] 69 bpm (04/30/20 4:27 AM) 79 bpm (04/29/20 7:39 PM) Blood Pressure [90-138/55-84 mm Hg] 128/ 68mm Hg (04/30/20 4:27 AM) 126/70mm Hg (04/29/20 7:39 PM) Respiratory Rate [16-30 br/min] 14 br/mi n *L* (04/30/20 4:27 AM) 18 br/min (04/29/20 7:39 PM) Temperature [96.8-100.4 DegF] 97.7 DegF (04/30/20 4:27 AM) 98.8 DegF (04/29/20 7:39 PM) Mode of Delivery (Oxygen) Room air (04/30/20 4:27 AM) Room air (04/29/20 7:39 PM) Blood pressure sites Arm, right (04/30/20 4:27 AM) Arm, right (04/29/20 7:39 PM) Temperature Route Oral (04/30/20 4:27 AM) Oral (04/29/20 7:39 PM) Social History Social History Type Response Smoking Status Never smoker entered on: 06/16/14 Sex Female
--- NOTE | 2023-10-24 07:15 | PC.NURSE ---
PT IS SLEEPING RESP EVEN AND UNLABORED. WILL CONTINUE TO MONITOR.
--- NOTE | 2023-10-24 07:32 | MHC.EDTECH ---
Patient asleep, respirations even and unlabored.
[2023-10-24 07:33] VITALS: RESP 16
--- NOTE | 2023-10-24 08:27 | MHC.CARE ---
CARE Team spoke with [facility]- no records on Pt
--- NOTE | 2023-10-24 08:27 | MHC.CARE ---
CARE Team spoke with Junior JOSEPH- they will call the person who called EMS on Pt and request them to call t/w back
--- NOTE | 2023-10-24 09:47 | PC.NURSE ---
THIS RN SPOKE WITH FREEDOM, (PROCESS DEVELOPMENT ENGINEER FOR [facility], ) RE: MED LIST VERIFICATION.
[2023-10-24 11:35] VITALS: BP 145/73; PULSE 69; RESP 20; TEMP 36.2; O2SAT 97
[2023-10-24] MEDS: levETIRAcetam 250 MG TABLET 750 MG PO (11:42)
[2023-10-24] MEDS: OXcarbazepine 150 MG TABLET PO (11:42)
[2023-10-24] MEDS: OXcarbazepine 300 MG TABLET PO (11:42)
--- NOTE | 2023-10-24 11:45 | PC.NURSE ---
PT AWAKE, AMB (I) GAIT STEADY TO BATHROOM AND BTB. NO SEIZURE ACTIVITY NOTED.
--- NOTE | 2023-10-24 12:57 | MHC.CARE ---
Safety Plan: If Rebeca? feels they are going to harm themselves or someone else , call 911 and/or come to closest ED? If Rebeca ? is dysregulated at the [facility] , [facility] ([facility])? crisis can be utilized for support over the phone, and guidance on what the next steps should be. -[facility] T[facility]/ .? This is a 24 hr hotline and can also be utilized for general phone support. Treatment Recommendations: Rebeca? will remain engaged in individual therapy sessions and psychiatry with [facility]. Rebeca will continue to speak with supports if feeling dysregulated and or overwhelmed. CARE Team recommends ensuring? physical safety in the home by securing sharps and objects that can be used in period of? dysregulation CARE Team recommends developing a behavioral plan/ safety plan if one is not currently in place to support Rebeca.? Contacts: [facility] Crisis Hotline -[facility] TALK/ CARE Team [phone] opt 1? at [facility] ?Should be called if there are questions about today?s assessment or recommendations. This is not a hotline and should not be used in a crisis. Please discuss/ review this safety plan with current providers
[2023-10-24 14:20] VITALS: BP 145/73; PULSE 69; RESP 20; TEMP 36.2; O2SAT 97
== END 2023-10-24 14:25 | disposition home or self-care (01) ==
PROVIDERS: Emergency Medicine; Emergency Provider Emergency Medicine Emergency Medical Services
DX: F41.9 Anxiety disorder, unspecified (principal); R62.50 Unspecified lack of expected normal physiological development in childhood
CPT/HCPCS: 0241U; 80048; 80076; 80307; 81001; 81025; 83735; 85025; 99284; S9485

== ENCOUNTER 2024-05-25 20:57 | Inpatient (IN) | payer OTHER, SELFPAY ==
[2024-05-25 21:06] VITALS: BP 129/53; PULSE 88; RESP 16; TEMP 36.9; O2SAT 98; BMI 65.0
--- NOTE | 2024-05-25 21:09 | PC.NURSE ---
pt is refusing to change to hospital attire. currently calm, resting in stretcher awaiting eval by ed provider.
--- NOTE | 2024-05-25 22:07 | MHC.CARE ---
Pt was assessed by [facility] at her Residential. She will be an [facility] Psychiatric bedsearch. She will be reassessed by the CARE team in the morning if no beds are available.
[2024-05-25 22:13] LABS: MANUAL DIFF FLAG NO
[2024-05-25 22:19] LABS: Basophils Percent Auto 0.2 % (0-2); Eosinophils Absolute Auto 0.1 X10*3/uL (0.0-0.4); Eosinophils Percent Auto 1.8 % (0-4); Hematocrit 36.5 % (37.0-47.0); Hemoglobin 11.8 g/dl (12.0-16.0); Imm Gran Abs Auto 0.01 X10*3/uL (0.00-0.03); Imm Gran Pct Auto 0.2 % (0.0-0.4); Lymphocytes Absolute Auto 1.3 X10*3/uL (1.2-4.9); Lymphocytes Percent Auto 26.3 % (20-40); Mean Corpuscular HGB Conc 32.3 g/dl (31.0-35.0); Mean Corpuscular Hemoglobin 27.1 pg (27.0-33.0); Mean Corpuscular Volume 83.9 fL (80.0-98.0); Mean Platelet Volume 9.1 fL (9.4-12.3); Monocytes Absolute Auto 0.3 X10*3/uL (0.1-1.2); Monocytes Percent Auto 6.5 % (2-11); Neutrophils Absolute Auto 3.2 x10*3/uL (2.0-8.3); Platelet Count 290 X10*3/uL (160-400); Red Blood Count 4.35 X10*6/uL (4.20-5.50); Red Cell Distribution Width 13.5 % (11.0-16.0); White Blood Count 4.9 X10*3/uL (4.8-10.8)
[2024-05-25 22:28] LABS: Acetaminophen LAB < 3 mcg/mL (<30); Salicylate < 5.0 mg/dL (15-30)
[2024-05-25 22:29] LABS: Alanine Aminotransferase 14 U/L (0-31); Albumin Level 3.4 g/dL (3.5-5.0); Alkaline Phosphatase 52 U/L (39-117); Anion Gap 10 (12-20); Aspartate Amino Transferase 15 U/L (5-31); Bilirubin Total 0.3 mg/dL (0.0-1.0); Blood Urea Nitrogen 12 mg/dL (9-16); Carbon Dioxide 26 mmol/L (22-29); Chloride 108 mmol/L (96-108); Creatinine Clr Calc Pharmacy 174.3; Estimated Glomerular Filt Rate > 60; Ethanol < 10 mg/dL; Glucose Random 116 mg/dL (60-115); Potassium 3.7 mmol/L (3.3-5.1); Sodium 140 mmol/L (135-145); Total Protein 6.6 g/dL (6.5-8.0)
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
[2024-05-25 22:55] LABS: Appearance Urine Cloudy; Color Urine Yellow; Glucose Urine UA Negative (Negative); Leukocyte Esterase Urine Trace (Negative); Nitrite Urine Negative (Negative); Specific Gravity - Urine 1.025 (1.005-1.025); UMIC TRIGGER UA YES; Urine Blood Small (1+) (Negative); Urine Ketones Trace mg/dL (Negative); Urine Protein Negative (Neg-Trace)
[2024-05-25 23:02] LABS: Amphetamine Screen Urine Not Detected (Not Detect); Barbiturates, Urine Not Detected (Not Detect); Benzodiazepines Screen Urine Not Detected (Not Detect); Buprenorphine Scr Not Detected (Not Detect); Cannabinoid Screen Urine Not Detected (Not Detect); Cocaine Screen Urine Not Detected (Not Detect); Fentanyl, urine Not Detected (Not Detect); Methadone Screen, Urine Not Detected (Not Detect); Opiate Screen Urine Not Detected (Not Detect); Oxycodone Screen Urine Not Detected (Not Detect); Phencyclidine Screen Urine Not Detected (Not Detect)
[2024-05-25 23:10] LABS: Bacteria Urine 3+ (None Seen); Hyaline Casts Urine 0-2 /LPF (0-2); WBC Urine 0-5 /HPF (0-5)
--- NOTE | 2024-05-26 01:09 | PC.NURSE ---
t/w changed over by t/w no evidence of contraband or injury, patient did have an unwashed odor, however cooperative, pleasant reality based, follows all requests
--- NOTE | 2024-05-26 05:26 | PC.NURSE ---
patient spending elongated period in bathroom, self dialogued, redirected a few times and patients voice progressively increased. t/w went and set limits, patient seemed receptive at the time, still transitioning out of rest room.
[2024-05-26] MEDS: Ondansetron ODT 4 MG TAB.RAPDIS TRANSLINGU (05:39)
[2024-05-26 05:41] LABS: UPreg QC Valid YES; Urine Pregnancy NEGATIVE (NEGATIVE)
--- NOTE | 2024-05-26 05:49 | PC.NURSE ---
t/w asked client if she had any activities she liked and patient seemed to not be able to identify any. will offer music prior to my departure. declined coloring.
--- NOTE | 2024-05-26 08:24 | ECG_ITS ---
Test Reason : QTC Blood Pressure : / mmHG Vent. Rate : 055 BPM Atrial Rate : 055 BPM P-R Int : 166 ms QRS Dur : 098 ms QT Int : 406 ms P-R-T Axes : 056 074 058 degrees QTc Int : 388 ms Sinus bradycardia with sinus arrhythmia Otherwise normal ECG No previous ECGs available Referred By: Wilma Mojica Electronically Signed By:Mychal Gardner
[2024-05-26] MEDS: Multivitamin TABLET 1 TAB PO (09:06)
[2024-05-26] MEDS: OXcarbazepine 150 MG TABLET PO ×2 (09:06→22:26)
[2024-05-26] MEDS: OXcarbazepine 300 MG TABLET PO ×2 (09:06→22:32)
[2024-05-26] MEDS: levETIRAcetam 250 MG TABLET 750 MG PO ×2 (09:06→22:27)
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
--- NOTE | 2024-05-26 11:01 | MHC.EDTECH ---
Worker from [facility] brought patient a trash bag full of clothes, bra's underwear incontinince products.
[2024-05-26 12:43] VITALS: BP 148/65; PULSE 62; RESP 15; TEMP 36.3; O2SAT 99
--- NOTE | 2024-05-26 15:19 | PC.NURSE ---
Assumed care of patient at 1445, patient appears to be in no apparent distress, sleeping, respirations even and unlabored. Continue plan of care for inpatient bedsearch
[2024-05-26 16:42] VITALS: BP 144/85; PULSE 87; RESP 18; TEMP 36.4; O2SAT 97
--- NOTE | 2024-05-26 16:55 | PC.ADMIT ---
Pt arrived on the unit at 1600 [place] [facility] She is a CV. Pt has DDS supports and resides in a long-term. [facility] staff reports increased agitation and aggression, pt states no known triggers. I know I have anger issues, I just black out. I want to get that together . During admission pt is cooperative, laughing at inappropriate times. Pt was incontinent of feces in the ED and showered prior to admission. During changeover pt was also incontinent of feces. This also happened twice after changeover, pts bed covers were visibly soiled. Pt seems to have no concept of when she is using the bathroom, but does clean herself up with redirection. Pt did sign DARREN. Oriented to the unit.
[2024-05-26 20:00] VITALS: BP 163/81; PULSE 76; RESP 16; TEMP 36.4; O2SAT 96
[2024-05-26] MEDS: Perphenazine 2 MG TABLET PO (22:26)
[2024-05-26 22:27] VITALS: BP 163/81
[2024-05-26] MEDS: cloNIDine HCL 0.1 MG TABLET PO (22:27)
[2024-05-26] MEDS: Melatonin 3 MG TABLET PO (22:32)
[2024-05-27 08:00] VITALS: BP 140/76; PULSE 77; RESP 18; TEMP 36.9; O2SAT 97
[2024-05-27] MEDS: Multivitamin TABLET 1 TAB PO (08:35)
[2024-05-27] MEDS: OXcarbazepine 150 MG TABLET PO ×2 (08:35→22:24)
[2024-05-27] MEDS: levETIRAcetam 250 MG TABLET 750 MG PO ×2 (08:35→22:22)
[2024-05-27] MEDS: OXcarbazepine 300 MG TABLET PO ×2 (08:36→22:22)
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
[2024-05-27 10:32] LABS: Cholesterol 162 mg/dL (<200); HDL Cholesterol 55 mg/dL (>40); LDL Cholesterol Calculated 91 mg/dL (<100); Triglycerides 82 mg/dL (<150)
[2024-05-27 10:52] LABS: Free T4 (Free Thyroxine) 0.91 ng/dL (0.71-1.85); Thyroid Stimulating Hormone 2.35 uIU/mL (0.32-4.0)
[2024-05-27 10:54] LABS: Estimated Average Glucose 94 mg/dL; Hemoglobin A1C 120.0223 umol/L; Hemoglobin A1c % 4.9 % (<6.0)
[2024-05-27 10:59] LABS: Folate 13.9 ng/mL (> or = 4.0); Vitamin B12 391 pg/mL (200-900)
[2024-05-27 20:00] VITALS: BP 144/79; PULSE 88; RESP 16; TEMP 36.3; O2SAT 94
[2024-05-27] MEDS: Melatonin 3 MG TABLET PO (22:22)
[2024-05-27 22:23] VITALS: BP 141/80
[2024-05-27] MEDS: cloNIDine HCL 0.1 MG TABLET PO (22:23)
[2024-05-27] MEDS: OLANZapine ODT 10 MG TAB.RAPDIS TRANSLINGU (22:24)
--- NOTE | 2024-05-28 06:26 | PC.NURSE ---
Unable to do safety tool with patient due to her inability to stay focused.
[2024-05-28 08:00] VITALS: RESP 18
--- NOTE | 2024-05-28 09:28 | HO.PSYCHPN ---
Subjective Subjective Date of Service: 05/28/24 Reason For Visit: Mood disorder Subjective Notes: Conditional Voluntary Interim History: Patient was seen and discussed in rounds today. Records and plans were reviewed. She is settling in and continues to be somewhat guarded. Some response to internal stimuli observed. No complaints or side effects. No behavioral issues or dangerous behaviors. No changes were made today Review of Systems Review of Systems Yes all other systems are reviewed and are negative Mental Status Exam Mental Status Exam Narrative: In today's visit she is alert, oriented and pleasant. Normal speech. Minimal eye contact. Affect is appropriate and constricted. No acute signs of psychosis but observed to be responding to internal stimuli. Cognitively she has poor concentration. No active SI. Judgment is poor. Diagnostics Vital Signs (24Hr): Vital Signs - 24 hr 05/27/24 20:00 05/27/24 22:23 Temperature 97.4 F Pulse Rate 88 Respiratory Rate 16 Blood Pressure 144/79 H 141/80 H Pulse Oximetry 94 Oxygen Delivery Method Room Air BMI result Body Mass Index 65.0 Labs 05/25/24 22:08 05/25/24 22:08 Labs: Laboratory Results - last 48 hr 05/27/24 09:58 Estimat Average Glucose 94 Hemoglobin A1c % 4.9 Magnesium 2.0 Triglycerides 82 Cholesterol 162 LDL Cholesterol, Calc 91 HDL Cholesterol 55 Vitamin B12 391 Folate 13.9 TSH 2.35 Free T4 0.91 Medications Medications Current Medications Acetaminophen (Acetaminophen 325 Mg Tablet) 650 mg PO Q6H PRN PRN Reason: Breakthrough Pain, Mild Al Hydroxide/Mg Hydroxide (Magnesium Hydrox/Alum Hydrox 30 Ml Oral.Susp) 30 ml PO Q6H PRN PRN Reason: Heartburn/Nausea Albuterol Sulfate (Albuterol Sulfate 90 Mcg 8 Gm Inhaler) 2 puff INHALE Q6H PRN PRN Reason: Wheezing Clonidine HCl (Clonidine Hcl 0.1 Mg Tablet) 0.1 mg PO BEDTIME [facility]; Protocol Last Admin: 05/27/24 22:23 Dose: 0.1 mg Hydroxyzine HCl (Hydroxyzine Hcl 25 Mg Tablet) 25 mg PO Q6H PRN PRN Reason: Anxiety Levetiracetam (Levetiracetam 250 Mg Tablet) 750 mg PO BID [facility] Last Admin: 05/27/24 22:22 Dose: 750 mg Magnesium Hydroxide (Milk Of Magnesia 30 Ml Oral.Susp) 30 ml PO DAILY PRN PRN Reason: Constipation Melatonin (Melatonin 3 Mg Tablet) 3 mg PO BEDTIME [facility] Last Admin: 05/27/24 22:22 Dose: 3 mg Multivitamins/Vitamin C (Multivitamin Tablet) 1 tab PO DAILY [facility] Last Admin: 05/27/24 08:35 Dose: 1 tab Nicotine (Nicotine 21 Mg Patch.Td24) 21 mg TRANSDERMA DAILY PRN PRN Reason: nicotine cravings Nicotine Polacrilex (Nicotine Polacrilex 2 Mg Gum) 4 mg BUCCAL Q2H PRN PRN Reason: Nicotine Cravings Olanzapine (Olanzapine 5 Mg Tablet) 5 mg PO Q4H PRN PRN Reason: agitation Olanzapine (Olanzapine Odt 10 Mg Tab.Rapdis) 10 mg TRANSLINGU BID [facility] Last Admin: 05/27/24 22:24 Dose: 10 mg Olanzapine (Olanzapine 5 Mg Tablet) 5 mg PO Q4H PRN PRN Reason: psychosis, agitation,lability Oxcarbazepine (Oxcarbazepine 150 Mg Tablet) 150 mg PO BID [facility] Last Admin: 05/27/24 22:24 Dose: 150 mg Oxcarbazepine (Oxcarbazepine 300 Mg Tablet) 300 mg PO BID [facility] Last Admin: 05/27/24 22:22 Dose: 300 mg Trazodone HCl (Trazodone Hcl 50 Mg Tablet) 50 mg PO BEDTIME MRX1 PRN PRN Reason: Insomnia Allergies Allergies Allergy/AdvReac Type Severity Reaction Status Date / Time kiwi AdvReac Itching Verified 05/25/24 22:27 shellfish derived AdvReac Hives Verified 05/25/24 22:27 Assessment & Plan Assessment & Plan (1) Schizoaffective disorder: Status: Acute Code(s): F25.9 - Schizoaffective disorder, unspecified (2) Developmental delay, moderate: Status: Acute Code(s): R62.50 - Unspecified lack of expected normal physiological development in childhood Plan Schizoaffective Disorder, Developmental Delay. 05/28: Continue current regimen and plans. Aim for stabilization and medication management changes. Plan: Admit, CV, 15 minute checks. Collateral contacts Diagnostics as needed Medication changes --Olanzapine 10 mg bid --Olanzapine 5 mg q4h prn lability,agitation,psychosis Encourage milieu involvement. Reason for continued inpatient stay Substantial Risk for: med/psych decompensation Time Spent With Patient Time: Total time managing care of this patient today ____ minutes.
[2024-05-28] MEDS: levETIRAcetam 250 MG TABLET 750 MG PO ×2 (09:40→21:05)
[2024-05-28] MEDS: OXcarbazepine 300 MG TABLET PO ×2 (09:40→21:05)
[2024-05-28] MEDS: OXcarbazepine 150 MG TABLET PO ×2 (09:40→21:06)
[2024-05-28] MEDS: OLANZapine ODT 10 MG TAB.RAPDIS TRANSLINGU ×2 (09:40→21:06)
[2024-05-28] MEDS: Multivitamin TABLET 1 TAB PO (09:40)
[2024-05-28 20:00] VITALS: BP 140/78; PULSE 86; TEMP 36.5; O2SAT 96
[2024-05-28] MEDS: Loperamide HCl 2 MG CAPSULE PO (21:05)
[2024-05-28] MEDS: cloNIDine HCL 0.1 MG TABLET PO (21:06)
[2024-05-28] MEDS: Melatonin 3 MG TABLET PO (21:06)
--- NOTE | 2024-05-28 21:53 | PC.NURSE ---
Patient c/o diarrhea. Provider notified. Immodium 2 mg ordered and administered with pending effect.
[2024-05-29 08:00] VITALS: BP 96/52; PULSE 94; RESP 18; TEMP 36.4; O2SAT 97
[2024-05-29] MEDS: Multivitamin TABLET 1 TAB PO (08:34)
[2024-05-29] MEDS: OLANZapine ODT 10 MG TAB.RAPDIS TRANSLINGU ×2 (08:34→20:12)
[2024-05-29] MEDS: OXcarbazepine 300 MG TABLET PO ×2 (08:34→20:11)
[2024-05-29] MEDS: OXcarbazepine 150 MG TABLET PO ×2 (08:34→20:11)
[2024-05-29] MEDS: levETIRAcetam 250 MG TABLET 750 MG PO ×2 (08:34→20:12)
--- NOTE | 2024-05-29 09:39 | HO.PSYCHPN ---
Subjective Subjective Date of Service: 05/28/24 Reason For Visit: Mood disorder Subjective Notes: Conditional Voluntary Interim History: Patient was seen and discussed in rounds today. Records and plans were reviewed. She continues to be mostly in her room, in bed. She continues to have self dialogue. She had diarrhea and loperamide was prescribed last evening. It has been helpful. No other complaints or changes. No active SI Review of Systems Review of Systems Diarrhea Yes all other systems are reviewed and are negative Mental Status Exam Mental Status Exam Narrative: In today's visit she is alert, oriented and pleasant. Normal speech. Minimal eye contact. Affect is appropriate and constricted. No acute signs of psychosis but observed to be responding to internal stimuli. Cognitively she has poor concentration. No active SI. Judgment is poor. Could not observe mobility Diagnostics Vital Signs (24Hr): Vital Signs - 24 hr 05/28/24 20:00 05/29/24 08:00 Temperature 97.7 F 97.5 F Pulse Rate 86 94 Respiratory Rate 18 Blood Pressure 140/78 H 96/52 L Pulse Oximetry 96 97 Oxygen Delivery Method Room Air Room Air BMI result Body Mass Index 65.0 Labs 05/25/24 22:08 05/25/24 22:08 Labs: Laboratory Results - last 48 hr 05/27/24 09:58 Estimat Average Glucose 94 Hemoglobin A1c % 4.9 Magnesium 2.0 Triglycerides 82 Cholesterol 162 LDL Cholesterol, Calc 91 HDL Cholesterol 55 Vitamin B12 391 Folate 13.9 TSH 2.35 Free T4 0.91 Medications Medications Current Medications Acetaminophen (Acetaminophen 325 Mg Tablet) 650 mg PO Q6H PRN PRN Reason: Breakthrough Pain, Mild Al Hydroxide/Mg Hydroxide (Magnesium Hydrox/Alum Hydrox 30 Ml Oral.Susp) 30 ml PO Q6H PRN PRN Reason: Heartburn/Nausea Albuterol Sulfate (Albuterol Sulfate 90 Mcg 8 Gm Inhaler) 2 puff INHALE Q6H PRN PRN Reason: Wheezing Clonidine HCl (Clonidine Hcl 0.1 Mg Tablet) 0.1 mg PO BEDTIME [facility]; Protocol Last Admin: 05/28/24 21:06 Dose: 0.1 mg Hydroxyzine HCl (Hydroxyzine Hcl 25 Mg Tablet) 25 mg PO Q6H PRN PRN Reason: Anxiety Levetiracetam (Levetiracetam 250 Mg Tablet) 750 mg PO BID [facility] Last Admin: 05/29/24 08:34 Dose: 750 mg Loperamide HCl (Loperamide Hcl 2 Mg Capsule) 2 mg PO Q6H PRN PRN Reason: Diarrhea Last Admin: 05/28/24 21:05 Dose: 2 mg Magnesium Hydroxide (Milk Of Magnesia 30 Ml Oral.Susp) 30 ml PO DAILY PRN PRN Reason: Constipation Melatonin (Melatonin 3 Mg Tablet) 3 mg PO BEDTIME [facility] Last Admin: 05/28/24 21:06 Dose: 3 mg Multivitamins/Vitamin C (Multivitamin Tablet) 1 tab PO DAILY [facility] Last Admin: 05/29/24 08:34 Dose: 1 tab Nicotine (Nicotine 21 Mg Patch.Td24) 21 mg TRANSDERMA DAILY PRN PRN Reason: nicotine cravings Nicotine Polacrilex (Nicotine Polacrilex 2 Mg Gum) 4 mg BUCCAL Q2H PRN PRN Reason: Nicotine Cravings Olanzapine (Olanzapine 5 Mg Tablet) 5 mg PO Q4H PRN PRN Reason: agitation Olanzapine (Olanzapine Odt 10 Mg Tab.Rapdis) 10 mg TRANSLINGU BID [facility] Last Admin: 05/29/24 08:34 Dose: 10 mg Olanzapine (Olanzapine 5 Mg Tablet) 5 mg PO Q4H PRN PRN Reason: psychosis, agitation,lability Oxcarbazepine (Oxcarbazepine 150 Mg Tablet) 150 mg PO BID [facility] Last Admin: 05/29/24 08:34 Dose: 150 mg Oxcarbazepine (Oxcarbazepine 300 Mg Tablet) 300 mg PO BID [facility] Last Admin: 05/29/24 08:34 Dose: 300 mg Trazodone HCl (Trazodone Hcl 50 Mg Tablet) 50 mg PO BEDTIME MRX1 PRN PRN Reason: Insomnia Allergies Allergies Allergy/AdvReac Type Severity Reaction Status Date / Time kiwi AdvReac Itching Verified 05/25/24 22:27 shellfish derived AdvReac Hives Verified 05/25/24 22:27 Assessment & Plan Assessment & Plan (1) Schizoaffective disorder: Status: Acute Code(s): F25.9 - Schizoaffective disorder, unspecified (2) Developmental delay, moderate: Status: Acute Code(s): R62.50 - Unspecified lack of expected normal physiological development in childhood Plan Schizoaffective Disorder, Developmental Delay. 05/28: Continue current regimen and plans. Aim for stabilization and medication management changes. 05/29: Continue current regimen and plans for stabilization and medication management Plan: Admit, CV, 15 minute checks. Collateral contacts Diagnostics as needed Medication changes --Olanzapine 10 mg bid --Olanzapine 5 mg q4h prn lability,agitation,psychosis Encourage milieu involvement. Reason for continued inpatient stay Substantial Risk for: med/psych decompensation Time Spent With Patient Time: Total time managing care of this patient today ____ minutes.
[2024-05-29 19:48] VITALS: BP 141/94; PULSE 133; RESP 15; TEMP 36.6; O2SAT 98
[2024-05-29 20:05] VITALS: PULSE 92
[2024-05-29 20:08] VITALS: PULSE 92; O2SAT 98
[2024-05-29] MEDS: Melatonin 3 MG TABLET PO (20:11)
[2024-05-29] MEDS: cloNIDine HCL 0.1 MG TABLET PO (20:12)
[2024-05-30 08:00] VITALS: BP 173/89; PULSE 86; TEMP 36.4; O2SAT 96
[2024-05-30] MEDS: OXcarbazepine 300 MG TABLET PO ×2 (08:50→19:58)
[2024-05-30] MEDS: OXcarbazepine 150 MG TABLET PO ×2 (08:50→19:59)
[2024-05-30] MEDS: OLANZapine ODT 10 MG TAB.RAPDIS TRANSLINGU ×2 (08:50→19:58)
[2024-05-30] MEDS: levETIRAcetam 250 MG TABLET 750 MG PO ×2 (08:51→19:58)
[2024-05-30] MEDS: Multivitamin TABLET 1 TAB PO (08:51)
--- NOTE | 2024-05-30 16:12 | HO.PSYCHPN ---
Subjective Subjective Date of Service: 05/30/24 Reason For Visit: Mood disorder Subjective Notes: Conditional Voluntary Healthcare Proxy: No Guardianship: No Medical Problems Affecting Mental Status: No Interim History: Pt today is smiling and reports she is feeling OK. She needs ADL assist, still appears to respond to internal stimuli, self-dialogues and we are informed that she does not respond well to being touched, so this boundary is maintained by team. Team is reaching out to OP agencies, [facility], for further information. Pt denies sx, denies SI/HI and is interactive when approached. No behavioral dyscontrol episodes today per team report. Medication Compliance: Yes Side effects from medications: No Attending Groups: No Review of Systems Acute medical concerns: No Medical Review of Systems: unchanged Review of Systems Review of Systems Pt needs ADL assistance Mental Status Exam Mental Status Exam Patient Appearance: Appropriate Patient Orientation: Person, Place and Situation Level of Consciousness: Awake and Alert Patient Behavior: Talkative, Distractible and Good Eye Contact Mood Description: Apprehensive Affect Description: Apprehensive Patient Cognition Impaired: Yes Ability to Follow Directions: Fair Speech Pattern: Spontaneous Speech Memory Description: Episodic Impaired Hallucinations: Auditory Perceptual Disturbances: Depersonalization and Derealization Thought Process: Distracted Thought Content: positive for Circumstantial Depressive Symptoms: Difficulty Concentrating Judgement: Fair Diagnostics Vital Signs (24Hr): Vital Signs - 24 hr 05/29/24 19:48 05/29/24 20:05 05/29/24 20:08 Temperature 98 F Pulse Rate 133 H 92 92 Respiratory Rate 15 Blood Pressure 141/94 H Pulse Oximetry 98 98 Oxygen Delivery Method 05/30/24 08:00 Temperature 97.5 F Pulse Rate 86 Respiratory Rate Blood Pressure 173/89 H Pulse Oximetry 96 Oxygen Delivery Method Room Air BMI result Body Mass Index 65.0 Labs 05/25/24 22:08 05/25/24 22:08 Medications Medications Current Medications Acetaminophen (Acetaminophen 325 Mg Tablet) 650 mg PO Q6H PRN PRN Reason: Breakthrough Pain, Mild Al Hydroxide/Mg Hydroxide (Magnesium Hydrox/Alum Hydrox 30 Ml Oral.Susp) 30 ml PO Q6H PRN PRN Reason: Heartburn/Nausea Albuterol Sulfate (Albuterol Sulfate 90 Mcg 8 Gm Inhaler) 2 puff INHALE Q6H PRN PRN Reason: Wheezing Clonidine HCl (Clonidine Hcl 0.1 Mg Tablet) 0.1 mg PO BEDTIME [facility]; Protocol Last Admin: 05/29/24 20:12 Dose: 0.1 mg Hydroxyzine HCl (Hydroxyzine Hcl 25 Mg Tablet) 25 mg PO Q6H PRN PRN Reason: Anxiety Levetiracetam (Levetiracetam 250 Mg Tablet) 750 mg PO BID [facility] Last Admin: 05/30/24 08:51 Dose: 750 mg Loperamide HCl (Loperamide Hcl 2 Mg Capsule) 2 mg PO Q6H PRN PRN Reason: Diarrhea Last Admin: 05/28/24 21:05 Dose: 2 mg Magnesium Hydroxide (Milk Of Magnesia 30 Ml Oral.Susp) 30 ml PO DAILY PRN PRN Reason: Constipation Melatonin (Melatonin 3 Mg Tablet) 3 mg PO BEDTIME [facility] Last Admin: 05/29/24 20:11 Dose: 3 mg Multivitamins/Vitamin C (Multivitamin Tablet) 1 tab PO DAILY [facility] Last Admin: 05/30/24 08:51 Dose: 1 tab Nicotine (Nicotine 21 Mg Patch.Td24) 21 mg TRANSDERMA DAILY PRN PRN Reason: nicotine cravings Nicotine Polacrilex (Nicotine Polacrilex 2 Mg Gum) 4 mg BUCCAL Q2H PRN PRN Reason: Nicotine Cravings Olanzapine (Olanzapine 5 Mg Tablet) 5 mg PO Q4H PRN PRN Reason: agitation Olanzapine (Olanzapine Odt 10 Mg Tab.Rapdis) 10 mg TRANSLINGU BID [facility] Last Admin: 05/30/24 08:50 Dose: 10 mg Olanzapine (Olanzapine 5 Mg Tablet) 5 mg PO Q4H PRN PRN Reason: psychosis, agitation,lability Oxcarbazepine (Oxcarbazepine 150 Mg Tablet) 150 mg PO BID [facility] Last Admin: 05/30/24 08:50 Dose: 150 mg Oxcarbazepine (Oxcarbazepine 300 Mg Tablet) 300 mg PO BID [facility] Last Admin: 05/30/24 08:50 Dose: 300 mg Trazodone HCl (Trazodone Hcl 50 Mg Tablet) 50 mg PO BEDTIME MRX1 PRN PRN Reason: Insomnia Allergies Allergies Allergy/AdvReac Type Severity Reaction Status Date / Time kiwi AdvReac Itching Verified 05/25/24 22:27 shellfish derived AdvReac Hives Verified 05/25/24 22:27 Assessment & Plan Assessment & Plan (1) Schizoaffective disorder: Status: Acute Code(s): F25.9 - Schizoaffective disorder, unspecified (2) Developmental delay, moderate: Status: Acute Code(s): R62.50 - Unspecified lack of expected normal physiological development in childhood Plan Schizoaffective Disorder, Developmental Delay. 05/28: Continue current regimen and plans. Aim for stabilization and medication management changes. 05/29: Continue current regimen and plans for stabilization and medication management 05/30: Continue current plan/regime. Plan: Admit, CV, 15 minute checks. Collateral contacts Diagnostics as needed Medication changes --Olanzapine 10 mg bid --Olanzapine 5 mg q4h prn lability,agitation,psychosis Encourage milieu involvement. Reason for continued inpatient stay Substantial Risk for: rapid decompensation Time Spent With Patient Time: Total time managing care of this patient today ____ minutes.
[2024-05-30] MEDS: Melatonin 3 MG TABLET PO (19:58)
[2024-05-30 19:59] VITALS: BP 142/69
[2024-05-30] MEDS: cloNIDine HCL 0.1 MG TABLET PO (19:59)
[2024-05-30 20:00] VITALS: BP 142/69; PULSE 105; TEMP 36.5; O2SAT 98
[2024-05-31 08:00] VITALS: BP 136/65; PULSE 77; RESP 16; TEMP 36.4; O2SAT 96
--- NOTE | 2024-05-31 08:50 | P.PNPSI_ITS ---
Subjective Subjective Date of Service: 05/31/24 Reason For Visit: Mood disorder Subjective Notes: Conditional Voluntary Healthcare Proxy: No Guardianship: No Medical Problems Affecting Mental Status: No Interim History: Presents with lability today, happiness, loud laughter at times, with self- dialoguing. ADL assistance is needed. Message left with Dyan Hubbard pt's OP medication provider, who has been prescribing Perphenazine and Trileptal. Pt denies symptoms of concern. Team is in process of arranging a meeting this week with residential/OP team to plan discharge. Medication Compliance: Yes Side effects from medications: No Attending Groups: No Review of Systems Acute medical concerns: No Medical Review of Systems: unchanged Review of Systems Review of Systems Requires ADL assistance Mental Status Exam Mental Status Exam Patient Appearance: Appropriate Patient Orientation: Person, Place and Situation Level of Consciousness: Awake and Alert Patient Behavior: Talkative, Distractible and Good Eye Contact Mood Description: Apprehensive Affect Description: Apprehensive Patient Cognition Impaired: Yes Ability to Follow Directions: Fair Speech Pattern: Spontaneous Speech Memory Description: Episodic Impaired Hallucinations: Auditory Perceptual Disturbances: Depersonalization and Derealization Thought Process: Distracted Thought Content: positive for Circumstantial Depressive Symptoms: Difficulty Concentrating Judgement: Fair Diagnostics Vital Signs (24Hr): Vital Signs - 24 hr 05/30/24 19:59 05/30/24 20:00 Temperature 97.7 F Pulse Rate 105 H Blood Pressure 142/69 H 142/69 H Pulse Oximetry 98 Oxygen Delivery Method Room Air BMI result Body Mass Index 65.0 Labs 05/25/24 22:08 05/25/24 22:08 Medications Medications Current Medications Acetaminophen (Acetaminophen 325 Mg Tablet) 650 mg PO Q6H PRN PRN Reason: Breakthrough Pain, Mild Al Hydroxide/Mg Hydroxide (Magnesium Hydrox/Alum Hydrox 30 Ml Oral.Susp) 30 ml PO Q6H PRN PRN Reason: Heartburn/Nausea Albuterol Sulfate (Albuterol Sulfate 90 Mcg 8 Gm Inhaler) 2 puff INHALE Q6H PRN PRN Reason: Wheezing Clonidine HCl (Clonidine Hcl 0.1 Mg Tablet) 0.1 mg PO BEDTIME [facility]; Protocol Last Admin: 05/30/24 19:59 Dose: 0.1 mg Hydroxyzine HCl (Hydroxyzine Hcl 25 Mg Tablet) 25 mg PO Q6H PRN PRN Reason: Anxiety Levetiracetam (Levetiracetam 250 Mg Tablet) 750 mg PO BID [facility] Last Admin: 05/30/24 19:58 Dose: 750 mg Loperamide HCl (Loperamide Hcl 2 Mg Capsule) 2 mg PO Q6H PRN PRN Reason: Diarrhea Last Admin: 05/28/24 21:05 Dose: 2 mg Magnesium Hydroxide (Milk Of Magnesia 30 Ml Oral.Susp) 30 ml PO DAILY PRN PRN Reason: Constipation Melatonin (Melatonin 3 Mg Tablet) 3 mg PO BEDTIME [facility] Last Admin: 05/30/24 19:58 Dose: 3 mg Multivitamins/Vitamin C (Multivitamin Tablet) 1 tab PO DAILY [facility] Last Admin: 05/30/24 08:51 Dose: 1 tab Nicotine (Nicotine 21 Mg Patch.Td24) 21 mg TRANSDERMA DAILY PRN PRN Reason: nicotine cravings Nicotine Polacrilex (Nicotine Polacrilex 2 Mg Gum) 4 mg BUCCAL Q2H PRN PRN Reason: Nicotine Cravings Olanzapine (Olanzapine 5 Mg Tablet) 5 mg PO Q4H PRN PRN Reason: agitation Olanzapine (Olanzapine Odt 10 Mg Tab.Rapdis) 10 mg TRANSLINGU BID [facility] Last Admin: 05/30/24 19:58 Dose: 10 mg Olanzapine (Olanzapine 5 Mg Tablet) 5 mg PO Q4H PRN PRN Reason: psychosis, agitation,lability Oxcarbazepine (Oxcarbazepine 150 Mg Tablet) 150 mg PO BID [facility] Last Admin: 05/30/24 19:59 Dose: 150 mg Oxcarbazepine (Oxcarbazepine 300 Mg Tablet) 300 mg PO BID [facility] Last Admin: 05/30/24 19:58 Dose: 300 mg Trazodone HCl (Trazodone Hcl 50 Mg Tablet) 50 mg PO BEDTIME MRX1 PRN PRN Reason: Insomnia Allergies Allergies Allergy/AdvReac Type Severity Reaction Status Date / Time kiwi AdvReac Itching Verified 05/25/24 22:27 shellfish derived AdvReac Hives Verified 05/25/24 22:27 Assessment & Plan Assessment & Plan (1) Schizoaffective disorder: Status: Acute Code(s): F25.9 - Schizoaffective disorder, unspecified (2) Developmental delay, moderate: Status: Acute Code(s): R62.50 - Unspecified lack of expected normal physiological development in childhood Plan Schizoaffective Disorder, Developmental Delay. 05/28: Continue current regimen and plans. Aim for stabilization and medication management changes. 05/29: Continue current regimen and plans for stabilization and medication management 05/31/24: Continue current regime. Discharge planning, pt has had behavioral control and no episodic outbursts. Plan: Admit, CV, 15 minute checks. Collateral contacts Diagnostics as needed Medication changes --Olanzapine 10 mg bid --Olanzapine 5 mg q4h prn lability,agitation,psychosis Encourage milieu involvement. Reason for continued inpatient stay Substantial Risk for: rapid decompensation Time Spent With Patient Time: Total time managing care of this patient today ____ minutes.
[2024-05-31] MEDS: levETIRAcetam 250 MG TABLET 750 MG PO ×2 (09:29→20:38)
[2024-05-31] MEDS: OXcarbazepine 150 MG TABLET PO ×2 (09:29→20:38)
[2024-05-31] MEDS: Multivitamin TABLET 1 TAB PO (09:29)
[2024-05-31] MEDS: OXcarbazepine 300 MG TABLET PO ×2 (09:30→20:38)
[2024-05-31] MEDS: OLANZapine ODT 10 MG TAB.RAPDIS TRANSLINGU ×2 (09:30→20:39)
[2024-05-31 20:00] VITALS: BP 124/64; PULSE 93; TEMP 36.3; O2SAT 96
[2024-05-31 20:39] VITALS: BP 124/64
[2024-05-31] MEDS: Melatonin 3 MG TABLET PO (20:39)
[2024-05-31] MEDS: cloNIDine HCL 0.1 MG TABLET PO (20:39)
[2024-06-01 08:00] VITALS: BP 153/87; PULSE 94; RESP 16; TEMP 36.3; O2SAT 100
--- NOTE | 2024-06-01 09:44 | P.PNPSI_ITS ---
Subjective Subjective Date of Service: 06/01/24 Reason For Visit: Mood disorder Subjective Notes: Conditional Voluntary Healthcare Proxy: No Guardianship: No Medical Problems Affecting Mental Status: No Interim History: Team reports meeting with OP team 06/02 to discuss discharge. Pt reports she feels well. She denies SI/HI/AH/VH She continues to self-dialogue at times. She is visable in milieu, asks for needs to be met, and is without lability. She does appear at times to be responding to internal stimuli and seems to not have distress with this. She continues to need assistance with her ADL's. Medication Compliance: Yes Side effects from medications: No Attending Groups: Intermittent Review of Systems Acute medical concerns: No Medical Review of Systems: unchanged Review of Systems Review of Systems she denies today Mental Status Exam Mental Status Exam Patient Appearance: Appropriate Patient Orientation: Person, Place and Situation Level of Consciousness: Awake and Alert Patient Behavior: Talkative, Distractible and Good Eye Contact Mood Description: Apprehensive Affect Description: Apprehensive Patient Cognition Impaired: Yes Ability to Follow Directions: Fair Speech Pattern: Spontaneous Speech Memory Description: Episodic Impaired Hallucinations: Auditory (at times) Perceptual Disturbances: Depersonalization and Derealization Thought Process: Distracted Thought Content: positive for Circumstantial Depressive Symptoms: Difficulty Concentrating Judgement: Fair Diagnostics Vital Signs (24Hr): Vital Signs - 24 hr 05/31/24 20:00 05/31/24 20:39 Temperature 97.4 F Pulse Rate 93 Blood Pressure 124/64 124/64 Pulse Oximetry 96 Oxygen Delivery Method Room Air BMI result Body Mass Index 65.0 Labs 05/25/24 22:08 05/25/24 22:08 Medications Medications Current Medications Acetaminophen (Acetaminophen 325 Mg Tablet) 650 mg PO Q6H PRN PRN Reason: Breakthrough Pain, Mild Al Hydroxide/Mg Hydroxide (Magnesium Hydrox/Alum Hydrox 30 Ml Oral.Susp) 30 ml PO Q6H PRN PRN Reason: Heartburn/Nausea Albuterol Sulfate (Albuterol Sulfate 90 Mcg 8 Gm Inhaler) 2 puff INHALE Q6H PRN PRN Reason: Wheezing Clonidine HCl (Clonidine Hcl 0.1 Mg Tablet) 0.1 mg PO BEDTIME [facility]; Protocol Last Admin: 05/31/24 20:39 Dose: 0.1 mg Hydroxyzine HCl (Hydroxyzine Hcl 25 Mg Tablet) 25 mg PO Q6H PRN PRN Reason: Anxiety Levetiracetam (Levetiracetam 250 Mg Tablet) 750 mg PO BID [facility] Last Admin: 05/31/24 20:38 Dose: 750 mg Loperamide HCl (Loperamide Hcl 2 Mg Capsule) 2 mg PO Q6H PRN PRN Reason: Diarrhea Last Admin: 05/28/24 21:05 Dose: 2 mg Magnesium Hydroxide (Milk Of Magnesia 30 Ml Oral.Susp) 30 ml PO DAILY PRN PRN Reason: Constipation Melatonin (Melatonin 3 Mg Tablet) 3 mg PO BEDTIME [facility] Last Admin: 05/31/24 20:39 Dose: 3 mg Multivitamins/Vitamin C (Multivitamin Tablet) 1 tab PO DAILY [facility] Last Admin: 05/31/24 09:29 Dose: 1 tab Nicotine (Nicotine 21 Mg Patch.Td24) 21 mg TRANSDERMA DAILY PRN PRN Reason: nicotine cravings Nicotine Polacrilex (Nicotine Polacrilex 2 Mg Gum) 4 mg BUCCAL Q2H PRN PRN Reason: Nicotine Cravings Olanzapine (Olanzapine 5 Mg Tablet) 5 mg PO Q4H PRN PRN Reason: agitation Olanzapine (Olanzapine Odt 10 Mg Tab.Rapdis) 10 mg TRANSLINGU BID [facility] Last Admin: 05/31/24 20:39 Dose: 10 mg Olanzapine (Olanzapine 5 Mg Tablet) 5 mg PO Q4H PRN PRN Reason: psychosis, agitation,lability Oxcarbazepine (Oxcarbazepine 150 Mg Tablet) 150 mg PO BID [facility] Last Admin: 05/31/24 20:38 Dose: 150 mg Oxcarbazepine (Oxcarbazepine 300 Mg Tablet) 300 mg PO BID [facility] Last Admin: 05/31/24 20:38 Dose: 300 mg Trazodone HCl (Trazodone Hcl 50 Mg Tablet) 50 mg PO BEDTIME MRX1 PRN PRN Reason: Insomnia Allergies Allergies Allergy/AdvReac Type Severity Reaction Status Date / Time kiwi AdvReac Itching Verified 05/25/24 22:27 shellfish derived AdvReac Hives Verified 05/25/24 22:27 Assessment & Plan Assessment & Plan (1) Schizoaffective disorder: Status: Acute Code(s): F25.9 - Schizoaffective disorder, unspecified (2) Developmental delay, moderate: Status: Acute Code(s): R62.50 - Unspecified lack of expected normal physiological development in childhood Plan Schizoaffective Disorder, Developmental Delay. 05/28: Continue current regimen and plans. Aim for stabilization and medication management changes. 05/29: Continue current regimen and plans for stabilization and medication management 06/01: Meeting with OP Team on 06/02 Continue current plan/regime. Plan: Admit, CV, 15 minute checks. Collateral contacts Diagnostics as needed Medication changes --Olanzapine 10 mg bid --Olanzapine 5 mg q4h prn lability,agitation,psychosis Encourage milieu involvement. Reason for continued inpatient stay Substantial Risk for: rapid decompensation Time Spent With Patient Time: Total time managing care of this patient today ____ minutes.
[2024-06-01] MEDS: Multivitamin TABLET 1 TAB PO (11:00)
[2024-06-01] MEDS: OXcarbazepine 300 MG TABLET PO ×2 (11:02→20:49)
[2024-06-01] MEDS: OLANZapine ODT 10 MG TAB.RAPDIS TRANSLINGU ×2 (11:02→20:48)
[2024-06-01] MEDS: OXcarbazepine 150 MG TABLET PO ×2 (11:03→20:48)
[2024-06-01] MEDS: levETIRAcetam 250 MG TABLET 750 MG PO ×2 (11:03→20:49)
[2024-06-01 20:00] VITALS: BP 138/81; PULSE 105; RESP 16; TEMP 36.6; O2SAT 97
[2024-06-01 20:48] VITALS: BP 146/87
[2024-06-01] MEDS: cloNIDine HCL 0.1 MG TABLET PO (20:48)
[2024-06-01] MEDS: Melatonin 3 MG TABLET PO (20:49)
[2024-06-02 07:00] VITALS: BMI 62.7
[2024-06-02 08:00] VITALS: RESP 18
[2024-06-02] MEDS: OLANZapine ODT 10 MG TAB.RAPDIS TRANSLINGU ×2 (08:50→22:02)
[2024-06-02] MEDS: OXcarbazepine 300 MG TABLET PO ×2 (08:50→22:02)
[2024-06-02] MEDS: Multivitamin TABLET 1 TAB PO (08:50)
[2024-06-02] MEDS: levETIRAcetam 250 MG TABLET 750 MG PO ×2 (08:50→22:02)
[2024-06-02] MEDS: OXcarbazepine 150 MG TABLET PO ×2 (08:50→22:01)
--- NOTE | 2024-06-02 10:50 | P.PNPSI_ITS ---
Subjective Subjective Date of Service: 06/02/24 Reason For Visit: Mood disorder Subjective Notes: Conditional Voluntary Healthcare Proxy: No Guardianship: No Medical Problems Affecting Mental Status: No Interim History: Team meeting with pt and her OP team today. Discharge will be on 06/06. Pt reports she was satisifed with the outcome of the meeting. This afternoon she is in the milieu, at the nursing station, initiating conversation with team and peers, smiling, watching TV and appears more interactive with the milieu. Discussed talking with her out patient medicine provider, Dyan Hubbard, and what we would be discussing, pt responds, tell her hi for me. Medication Compliance: Yes Side effects from medications: No Attending Groups: Intermittent Review of Systems Acute medical concerns: No Review of Systems Review of Systems pt denies today Mental Status Exam Mental Status Exam Patient Appearance: Appropriate Patient Orientation: Person, Place and Situation Level of Consciousness: Awake and Alert Patient Behavior: Talkative, Distractible and Good Eye Contact Mood Description: Apprehensive Affect Description: Apprehensive Patient Cognition Impaired: Yes Ability to Follow Directions: Fair Speech Pattern: Spontaneous Speech Memory Description: Episodic Impaired Hallucinations: Auditory (at times) Perceptual Disturbances: Depersonalization and Derealization Thought Process: Distracted Thought Content: positive for Circumstantial Depressive Symptoms: Difficulty Concentrating Judgement: Fair Diagnostics Vital Signs (24Hr): Vital Signs - 24 hr 06/01/24 20:00 06/01/24 20:48 06/02/24 08:00 Temperature 97.8 F Pulse Rate 105 H Respiratory Rate 16 18 Blood Pressure 138/81 146/87 H Pulse Oximetry 97 Oxygen Delivery Method Room Air BMI result Body Mass Index 65.0 Labs 05/25/24 22:08 05/25/24 22:08 Medications Medications Current Medications Acetaminophen (Acetaminophen 325 Mg Tablet) 650 mg PO Q6H PRN PRN Reason: Breakthrough Pain, Mild Al Hydroxide/Mg Hydroxide (Magnesium Hydrox/Alum Hydrox 30 Ml Oral.Susp) 30 ml PO Q6H PRN PRN Reason: Heartburn/Nausea Albuterol Sulfate (Albuterol Sulfate 90 Mcg 8 Gm Inhaler) 2 puff INHALE Q6H PRN PRN Reason: Wheezing Clonidine HCl (Clonidine Hcl 0.1 Mg Tablet) 0.1 mg PO BEDTIME [facility]; Protocol Last Admin: 06/01/24 20:48 Dose: 0.1 mg Hydroxyzine HCl (Hydroxyzine Hcl 25 Mg Tablet) 25 mg PO Q6H PRN PRN Reason: Anxiety Levetiracetam (Levetiracetam 250 Mg Tablet) 750 mg PO BID [facility] Last Admin: 06/02/24 08:50 Dose: 750 mg Loperamide HCl (Loperamide Hcl 2 Mg Capsule) 2 mg PO Q6H PRN PRN Reason: Diarrhea Last Admin: 05/28/24 21:05 Dose: 2 mg Magnesium Hydroxide (Milk Of Magnesia 30 Ml Oral.Susp) 30 ml PO DAILY PRN PRN Reason: Constipation Melatonin (Melatonin 3 Mg Tablet) 3 mg PO BEDTIME [facility] Last Admin: 06/01/24 20:49 Dose: 3 mg Multivitamins/Vitamin C (Multivitamin Tablet) 1 tab PO DAILY [facility] Last Admin: 06/02/24 08:50 Dose: 1 tab Nicotine (Nicotine 21 Mg Patch.Td24) 21 mg TRANSDERMA DAILY PRN PRN Reason: nicotine cravings Nicotine Polacrilex (Nicotine Polacrilex 2 Mg Gum) 4 mg BUCCAL Q2H PRN PRN Reason: Nicotine Cravings Olanzapine (Olanzapine 5 Mg Tablet) 5 mg PO Q4H PRN PRN Reason: agitation Olanzapine (Olanzapine Odt 10 Mg Tab.Rapdis) 10 mg TRANSLINGU BID [facility] Last Admin: 06/02/24 08:50 Dose: 10 mg Olanzapine (Olanzapine 5 Mg Tablet) 5 mg PO Q4H PRN PRN Reason: psychosis, agitation,lability Oxcarbazepine (Oxcarbazepine 150 Mg Tablet) 150 mg PO BID [facility] Last Admin: 06/02/24 08:50 Dose: 150 mg Oxcarbazepine (Oxcarbazepine 300 Mg Tablet) 300 mg PO BID [facility] Last Admin: 06/02/24 08:50 Dose: 300 mg Trazodone HCl (Trazodone Hcl 50 Mg Tablet) 50 mg PO BEDTIME MRX1 PRN PRN Reason: Insomnia Allergies Allergies Allergy/AdvReac Type Severity Reaction Status Date / Time kiwi AdvReac Itching Verified 05/25/24 22:27 shellfish derived AdvReac Hives Verified 05/25/24 22:27 Assessment & Plan Assessment & Plan (1) Schizoaffective disorder: Status: Acute Code(s): F25.9 - Schizoaffective disorder, unspecified (2) Developmental delay, moderate: Status: Acute Code(s): R62.50 - Unspecified lack of expected normal physiological development in childhood Plan Schizoaffective Disorder, Developmental Delay. 05/28: Continue current regimen and plans. Aim for stabilization and medication management changes. 05/29: Continue current regimen and plans for stabilization and medication management 05/31/24: Continue current regime. Discharge planning, pt has had behavioral control and no episodic outbursts. 06/02/24: Discharge 06/06 to return to her shelter. Contact with OP prescriber attempted. Plan: Admit, CV, 15 minute checks. Collateral contacts Diagnostics as needed Medication changes --Olanzapine 10 mg bid --Olanzapine 5 mg q4h prn lability,agitation,psychosis Encourage milieu involvement. Reason for continued inpatient stay Substantial Risk for: rapid decompensation Time Spent With Patient Time: Total time managing care of this patient today ____ minutes.
[2024-06-02 19:57] VITALS: BP 137/89; PULSE 86; RESP 20; TEMP 37.1; O2SAT 96
[2024-06-02] MEDS: cloNIDine HCL 0.1 MG TABLET PO (22:02)
[2024-06-02] MEDS: Melatonin 3 MG TABLET PO (22:02)
[2024-06-03 08:16] VITALS: BP 176/105; PULSE 88; RESP 18; TEMP 36.4; O2SAT 96
[2024-06-03] MEDS: OXcarbazepine 150 MG TABLET PO ×2 (08:19→20:56)
[2024-06-03] MEDS: levETIRAcetam 250 MG TABLET 750 MG PO ×2 (08:19→20:56)
[2024-06-03] MEDS: OXcarbazepine 300 MG TABLET PO ×2 (08:19→20:54)
[2024-06-03] MEDS: Multivitamin TABLET 1 TAB PO (08:19)
[2024-06-03] MEDS: OLANZapine ODT 10 MG TAB.RAPDIS TRANSLINGU ×2 (08:19→20:55)
--- NOTE | 2024-06-03 12:49 | P.PNPSI_ITS ---
Subjective Subjective Date of Service: 06/03/24 Reason For Visit: Mood disorder Subjective Notes: Conditional Voluntary Healthcare Proxy: No Guardianship: No Medical Problems Affecting Mental Status: No Interim History: Pt reports feeling well. She denies SI/HI/AH/VH. Care review completed with pt's out patient prescriber Dyan Hubbard [phone]. Discharge planned for 06/06. Medication Compliance: Yes Side effects from medications: No Attending Groups: Intermittent Review of Systems Acute medical concerns: No Review of Systems Review of Systems Denies Mental Status Exam Mental Status Exam Patient Appearance: Appropriate Patient Orientation: Person, Place and Situation Level of Consciousness: Awake and Alert Patient Behavior: Talkative, Distractible and Good Eye Contact Mood Description: Apprehensive Affect Description: Apprehensive Patient Cognition Impaired: Yes Ability to Follow Directions: Fair Speech Pattern: Spontaneous Speech Memory Description: Episodic Impaired Hallucinations: Auditory (at times) Perceptual Disturbances: Depersonalization and Derealization Thought Process: Distracted Thought Content: positive for Circumstantial Depressive Symptoms: Difficulty Concentrating Judgement: Fair Diagnostics Vital Signs (24Hr): Vital Signs - 24 hr 06/02/24 19:57 06/03/24 08:16 Temperature 98.8 F 97.5 F Pulse Rate 86 88 Respiratory Rate 20 18 Blood Pressure 137/89 176/105 H Pulse Oximetry 96 96 Oxygen Delivery Method Room Air Room Air BMI result Body Mass Index 62.7 Labs 05/25/24 22:08 05/25/24 22:08 Medications Medications Current Medications Acetaminophen (Acetaminophen 325 Mg Tablet) 650 mg PO Q6H PRN PRN Reason: Breakthrough Pain, Mild Al Hydroxide/Mg Hydroxide (Magnesium Hydrox/Alum Hydrox 30 Ml Oral.Susp) 30 ml PO Q6H PRN PRN Reason: Heartburn/Nausea Albuterol Sulfate (Albuterol Sulfate 90 Mcg 8 Gm Inhaler) 2 puff INHALE Q6H PRN PRN Reason: Wheezing Clonidine HCl (Clonidine Hcl 0.1 Mg Tablet) 0.1 mg PO BEDTIME [facility]; Protocol Last Admin: 06/02/24 22:02 Dose: 0.1 mg Hydroxyzine HCl (Hydroxyzine Hcl 25 Mg Tablet) 25 mg PO Q6H PRN PRN Reason: Anxiety Levetiracetam (Levetiracetam 250 Mg Tablet) 750 mg PO BID [facility] Last Admin: 06/03/24 08:19 Dose: 750 mg Loperamide HCl (Loperamide Hcl 2 Mg Capsule) 2 mg PO Q6H PRN PRN Reason: Diarrhea Last Admin: 05/28/24 21:05 Dose: 2 mg Magnesium Hydroxide (Milk Of Magnesia 30 Ml Oral.Susp) 30 ml PO DAILY PRN PRN Reason: Constipation Melatonin (Melatonin 3 Mg Tablet) 3 mg PO BEDTIME [facility] Last Admin: 06/02/24 22:02 Dose: 3 mg Multivitamins/Vitamin C (Multivitamin Tablet) 1 tab PO DAILY [facility] Last Admin: 06/03/24 08:19 Dose: 1 tab Nicotine (Nicotine 21 Mg Patch.Td24) 21 mg TRANSDERMA DAILY PRN PRN Reason: nicotine cravings Nicotine Polacrilex (Nicotine Polacrilex 2 Mg Gum) 4 mg BUCCAL Q2H PRN PRN Reason: Nicotine Cravings Olanzapine (Olanzapine 5 Mg Tablet) 5 mg PO Q4H PRN PRN Reason: agitation Olanzapine (Olanzapine Odt 10 Mg Tab.Rapdis) 10 mg TRANSLINGU BID [facility] Last Admin: 06/03/24 08:19 Dose: 10 mg Olanzapine (Olanzapine 5 Mg Tablet) 5 mg PO Q4H PRN PRN Reason: psychosis, agitation,lability Oxcarbazepine (Oxcarbazepine 150 Mg Tablet) 150 mg PO BID [facility] Last Admin: 06/03/24 08:19 Dose: 150 mg Oxcarbazepine (Oxcarbazepine 300 Mg Tablet) 300 mg PO BID [facility] Last Admin: 06/03/24 08:19 Dose: 300 mg Trazodone HCl (Trazodone Hcl 50 Mg Tablet) 50 mg PO BEDTIME MRX1 PRN PRN Reason: Insomnia Allergies Allergies Allergy/AdvReac Type Severity Reaction Status Date / Time kiwi AdvReac Itching Verified 05/25/24 22:27 shellfish derived AdvReac Hives Verified 05/25/24 22:27 Assessment & Plan Assessment & Plan (1) Schizoaffective disorder: Status: Acute Code(s): F25.9 - Schizoaffective disorder, unspecified (2) Developmental delay, moderate: Status: Acute Code(s): R62.50 - Unspecified lack of expected normal physiological development in childhood Plan Schizoaffective Disorder, Developmental Delay. 05/28: Continue current regimen and plans. Aim for stabilization and medication management changes. 05/29: Continue current regimen and plans for stabilization and medication management 05/31/24: Continue current regime. Discharge planning, pt has had behavioral control and no episodic outbursts. 06/02/24: Discharge 06/06 to [facility] to her [facility]. Contact with OP prescriber attempted. 06/03/24: Care discussed with Dyan Hubbard [phone]. No changes today Discharge 06/06/24. Plan: Admit, CV, 15 minute checks. Collateral contacts Diagnostics as needed Medication changes --Olanzapine 10 mg bid --Olanzapine 5 mg q4h prn lability,agitation,psychosis Encourage milieu involvement. Reason for continued inpatient stay Substantial Risk for: rapid decompensation Time Spent With Patient Time: Total time managing care of this patient today ____ minutes.
[2024-06-03 20:00] VITALS: BP 157/74; PULSE 130; TEMP 36.3; O2SAT 99
[2024-06-03] MEDS: Melatonin 3 MG TABLET PO (20:54)
[2024-06-03 20:59] VITALS: BP 157/74
[2024-06-03] MEDS: cloNIDine HCL 0.1 MG TABLET PO (20:59)
[2024-06-04 08:00] VITALS: BP 144/78; PULSE 76; RESP 17; TEMP 36.4; O2SAT 97
[2024-06-04] MEDS: OLANZapine ODT 10 MG TAB.RAPDIS TRANSLINGU ×2 (08:34→20:19)
[2024-06-04] MEDS: OXcarbazepine 300 MG TABLET PO ×2 (08:34→20:19)
[2024-06-04] MEDS: OXcarbazepine 150 MG TABLET PO ×2 (08:34→20:19)
[2024-06-04] MEDS: levETIRAcetam 250 MG TABLET 750 MG PO ×2 (08:34→20:18)
[2024-06-04] MEDS: Multivitamin TABLET 1 TAB PO (08:34)
[2024-06-04] MEDS: Acetaminophen 325 MG TABLET 650 MG PO (08:43)
--- NOTE | 2024-06-04 12:48 | P.PNPSI_ITS ---
Subjective Subjective Date of Service: 05/28/24 Reason For Visit: Mood disorder Subjective Notes: Conditional Voluntary Healthcare Proxy: No Guardianship: No Medical Problems Affecting Mental Status: No Interim History: 34 yo with developmental delay and schizoaffective disorder reports feeling better and medication change has helped- does have ongoing baseline ah but they are not intrusive- Sleep ok - eating ok - no med s/e Medication Compliance: Yes Side effects from medications: No Attending Groups: Intermittent Review of Systems Acute medical concerns: No Medical Review of Systems: unchanged Mental Status Exam Mental Status Exam Patient Appearance: Unkempt Patient Orientation: Person, Place, Time and Situation Level of Consciousness: Awake Patient Behavior: Passive and Good Eye Contact Mood Description: Calm Affect Description: Blunted Ability to Follow Directions: Fair Speech Pattern: Poor Articulation Hallucinations: Auditory Delusions: Not Present Thought Process: Intact and Goal Oriented Thought Content: positive for [place] and positive for Poverty of Content Judgement: Fair Diagnostics Vital Signs (24Hr): Vital Signs - 24 hr 06/03/24 20:00 06/03/24 20:59 06/04/24 08:00 Temperature 97.3 F 97.5 F Pulse Rate 130 H 76 Respiratory Rate 17 Blood Pressure 157/74 H 157/74 H 144/78 H Pulse Oximetry 99 97 Oxygen Delivery Method Room Air Room Air BMI result Body Mass Index 62.7 Labs 05/25/24 22:08 05/25/24 22:08 Medications Medications Current Medications Acetaminophen (Acetaminophen 325 Mg Tablet) 650 mg PO Q6H PRN PRN Reason: Breakthrough Pain, Mild Last Admin: 06/04/24 08:43 Dose: 650 mg Al Hydroxide/Mg Hydroxide (Magnesium Hydrox/Alum Hydrox 30 Ml Oral.Susp) 30 ml PO Q6H PRN PRN Reason: Heartburn/Nausea Albuterol Sulfate (Albuterol Sulfate 90 Mcg 8 Gm Inhaler) 2 puff INHALE Q6H PRN PRN Reason: Wheezing Clonidine HCl (Clonidine Hcl 0.1 Mg Tablet) 0.1 mg PO BEDTIME [facility]; Protocol Last Admin: 06/03/24 20:59 Dose: 0.1 mg Hydroxyzine HCl (Hydroxyzine Hcl 25 Mg Tablet) 25 mg PO Q6H PRN PRN Reason: Anxiety Levetiracetam (Levetiracetam 250 Mg Tablet) 750 mg PO BID [facility] Last Admin: 06/04/24 08:34 Dose: 750 mg Loperamide HCl (Loperamide Hcl 2 Mg Capsule) 2 mg PO Q6H PRN PRN Reason: Diarrhea Last Admin: 05/28/24 21:05 Dose: 2 mg Magnesium Hydroxide (Milk Of Magnesia 30 Ml Oral.Susp) 30 ml PO DAILY PRN PRN Reason: Constipation Melatonin (Melatonin 3 Mg Tablet) 3 mg PO BEDTIME [facility] Last Admin: 06/03/24 20:54 Dose: 3 mg Multivitamins/Vitamin C (Multivitamin Tablet) 1 tab PO DAILY [facility] Last Admin: 06/04/24 08:34 Dose: 1 tab Nicotine (Nicotine 21 Mg Patch.Td24) 21 mg TRANSDERMA DAILY PRN PRN Reason: nicotine cravings Nicotine Polacrilex (Nicotine Polacrilex 2 Mg Gum) 4 mg BUCCAL Q2H PRN PRN Reason: Nicotine Cravings Olanzapine (Olanzapine 5 Mg Tablet) 5 mg PO Q4H PRN PRN Reason: agitation Olanzapine (Olanzapine Odt 10 Mg Tab.Rapdis) 10 mg TRANSLINGU BID [facility] Last Admin: 06/04/24 08:34 Dose: 10 mg Olanzapine (Olanzapine 5 Mg Tablet) 5 mg PO Q4H PRN PRN Reason: psychosis, agitation,lability Oxcarbazepine (Oxcarbazepine 150 Mg Tablet) 150 mg PO BID [facility] Last Admin: 06/04/24 08:34 Dose: 150 mg Oxcarbazepine (Oxcarbazepine 300 Mg Tablet) 300 mg PO BID [facility] Last Admin: 06/04/24 08:34 Dose: 300 mg Trazodone HCl (Trazodone Hcl 50 Mg Tablet) 50 mg PO BEDTIME MRX1 PRN PRN Reason: Insomnia Allergies Allergies Allergy/AdvReac Type Severity Reaction Status Date / Time kiwi AdvReac Itching Verified 05/25/24 22:27 shellfish derived AdvReac Hives Verified 05/25/24 22:27 Assessment & Plan Assessment & Plan (1) Schizoaffective disorder: Status: Acute Code(s): F25.9 - Schizoaffective disorder, unspecified (2) Developmental delay, moderate: Status: Acute Code(s): R62.50 - Unspecified lack of expected normal physiological development in childhood Plan Schizoaffective Disorder, Developmental Delay. 05/28: Continue current regimen and plans. Aim for stabilization and medication management changes. 05/29: Continue current regimen and plans for stabilization and medication management 05/31/24: Continue current regime. Discharge planning, pt has had behavioral control and no episodic outbursts. 06/02/24: Discharge 06/06 to return to her longterm. Contact with OP prescriber attempted. 06/03/24: Care discussed with Dyan Hubbard [phone]. No changes today Discharge 06/06/24. 06/04 - improved with mood/psychosis- ongoing ah - tolerating medication changes- discharge pending Plan: Admit, CV, 15 minute checks. Collateral contacts Diagnostics as needed Medication changes --Olanzapine 10 mg bid --Olanzapine 5 mg q4h prn lability,agitation,psychosis Encourage milieu involvement. Reason for continued inpatient stay Substantial Risk for: rapid decompensation Time Spent With Patient Time: Total time managing care of this patient today ____ minutes.
[2024-06-04 20:00] VITALS: BP 139/77; PULSE 100; TEMP 36.4; O2SAT 100
[2024-06-04 20:19] VITALS: BP 139/77
[2024-06-04] MEDS: cloNIDine HCL 0.1 MG TABLET PO (20:19)
[2024-06-04] MEDS: Melatonin 3 MG TABLET PO (20:19)
[2024-06-05 08:00] VITALS: BP 166/95; PULSE 85; RESP 18; TEMP 36.5; O2SAT 99
[2024-06-05] MEDS: levETIRAcetam 250 MG TABLET 750 MG PO ×2 (08:25→20:06)
[2024-06-05] MEDS: OXcarbazepine 300 MG TABLET PO ×2 (08:25→20:06)
[2024-06-05] MEDS: Multivitamin TABLET 1 TAB PO (08:25)
[2024-06-05] MEDS: OLANZapine ODT 10 MG TAB.RAPDIS TRANSLINGU ×2 (08:26→20:06)
[2024-06-05] MEDS: OXcarbazepine 150 MG TABLET PO ×2 (08:26→20:06)
--- NOTE | 2024-06-05 12:05 | HO.PSYCHPN ---
Subjective Subjective Date of Service: 06/05/24 Reason For Visit: Mood disorder Subjective Notes: Conditional Voluntary Healthcare Proxy: No Guardianship: No Medical Problems Affecting Mental Status: No Interim History: 34 yo reports ah are no telling her good things, rather than bad- She says she is doing ok and mood ok - no side effects of medications no si/hi- looking forward to going home tomorrow=- Medication Compliance: Yes Side effects from medications: No Attending Groups: Intermittent Review of Systems Acute medical concerns: No Medical Review of Systems: unchanged Mental Status Exam Mental Status Exam Patient Appearance: Unkempt Patient Orientation: Person, Place and Situation Level of Consciousness: Awake Mood Description: Calm Affect Description: Blunted Patient Cognition Impaired: Yes Ability to Follow Directions: Fair Speech Pattern: Poor Articulation Hallucinations: Auditory (now reports instead of being negative toward her - they are positive) Thought Process: Goal Oriented Thought Content: positive for [place] and positive for Poverty of Content Judgement: Fair Diagnostics Vital Signs (24Hr): Vital Signs - 24 hr 06/04/24 20:00 06/04/24 20:19 06/05/24 08:00 Temperature 97.6 F 97.7 F Pulse Rate 100 85 Respiratory Rate 18 Blood Pressure 139/77 139/77 166/95 H Pulse Oximetry 100 99 Oxygen Delivery Method Room Air Room Air BMI result Body Mass Index 62.7 Labs 05/25/24 22:08 05/25/24 22:08 Medications Medications Current Medications Acetaminophen (Acetaminophen 325 Mg Tablet) 650 mg PO Q6H PRN PRN Reason: Breakthrough Pain, Mild Last Admin: 06/04/24 08:43 Dose: 650 mg Al Hydroxide/Mg Hydroxide (Magnesium Hydrox/Alum Hydrox 30 Ml Oral.Susp) 30 ml PO Q6H PRN PRN Reason: Heartburn/Nausea Albuterol Sulfate (Albuterol Sulfate 90 Mcg 8 Gm Inhaler) 2 puff INHALE Q6H PRN PRN Reason: Wheezing Clonidine HCl (Clonidine Hcl 0.1 Mg Tablet) 0.1 mg PO BEDTIME [facility]; Protocol Last Admin: 06/04/24 20:19 Dose: 0.1 mg Hydroxyzine HCl (Hydroxyzine Hcl 25 Mg Tablet) 25 mg PO Q6H PRN PRN Reason: Anxiety Levetiracetam (Levetiracetam 250 Mg Tablet) 750 mg PO BID [facility] Last Admin: 06/05/24 08:25 Dose: 750 mg Loperamide HCl (Loperamide Hcl 2 Mg Capsule) 2 mg PO Q6H PRN PRN Reason: Diarrhea Last Admin: 05/28/24 21:05 Dose: 2 mg Magnesium Hydroxide (Milk Of Magnesia 30 Ml Oral.Susp) 30 ml PO DAILY PRN PRN Reason: Constipation Melatonin (Melatonin 3 Mg Tablet) 3 mg PO BEDTIME [facility] Last Admin: 06/04/24 20:19 Dose: 3 mg Multivitamins/Vitamin C (Multivitamin Tablet) 1 tab PO DAILY [facility] Last Admin: 06/05/24 08:25 Dose: 1 tab Nicotine (Nicotine 21 Mg Patch.Td24) 21 mg TRANSDERMA DAILY PRN PRN Reason: nicotine cravings Nicotine Polacrilex (Nicotine Polacrilex 2 Mg Gum) 4 mg BUCCAL Q2H PRN PRN Reason: Nicotine Cravings Olanzapine (Olanzapine 5 Mg Tablet) 5 mg PO Q4H PRN PRN Reason: agitation Olanzapine (Olanzapine Odt 10 Mg Tab.Rapdis) 10 mg TRANSLINGU BID [facility] Last Admin: 06/05/24 08:26 Dose: 10 mg Olanzapine (Olanzapine 5 Mg Tablet) 5 mg PO Q4H PRN PRN Reason: psychosis, agitation,lability Oxcarbazepine (Oxcarbazepine 150 Mg Tablet) 150 mg PO BID [facility] Last Admin: 06/05/24 08:26 Dose: 150 mg Oxcarbazepine (Oxcarbazepine 300 Mg Tablet) 300 mg PO BID [facility] Last Admin: 06/05/24 08:25 Dose: 300 mg Trazodone HCl (Trazodone Hcl 50 Mg Tablet) 50 mg PO BEDTIME MRX1 PRN PRN Reason: Insomnia Allergies Allergies Allergy/AdvReac Type Severity Reaction Status Date / Time kiwi AdvReac Itching Verified 05/25/24 22:27 shellfish derived AdvReac Hives Verified 05/25/24 22:27 Assessment & Plan Assessment & Plan (1) Schizoaffective disorder: Status: Acute Code(s): F25.9 - Schizoaffective disorder, unspecified (2) Developmental delay, moderate: Status: Acute Code(s): R62.50 - Unspecified lack of expected normal physiological development in childhood Plan Schizoaffective Disorder, Developmental Delay. 05/28: Continue current regimen and plans. Aim for stabilization and medication management changes. 05/29: Continue current regimen and plans for stabilization and medication management 05/31/24: Continue current regime. Discharge planning, pt has had behavioral control and no episodic outbursts. 06/02/24: Discharge 06/06 to return to her senior living. Contact with OP prescriber attempted. 06/03/24: Care discussed with Dyan Hubbard [phone]. No changes today Discharge 06/06/24. 06/04 - improved with mood/psychosis- ongoing ah - tolerating medication changes- discharge pending 06/05- no changes to medication today continuing to improve- solidifying medication changes with holding patient over weekend to limit risk of rapid decompensation on discharge Plan: Admit, CV, 15 minute checks. Collateral contacts Diagnostics as needed Medication changes --Olanzapine 10 mg bid --Olanzapine 5 mg q4h prn lability,agitation,psychosis Encourage milieu involvement. Patient educated on: therapeutic strategies Informed Consent: understands Reason for continued inpatient stay Substantial Risk for: rapid decompensation Time Spent With Patient Time: Total time managing care of this patient today ____ minutes.
[2024-06-05 19:40] VITALS: BP 136/86; RESP 18; O2SAT 98
[2024-06-05] MEDS: cloNIDine HCL 0.1 MG TABLET PO (20:06)
[2024-06-05] MEDS: Melatonin 3 MG TABLET PO (20:06)
[2024-06-06] MEDS: levETIRAcetam 250 MG TABLET 750 MG PO (09:31)
[2024-06-06] MEDS: OXcarbazepine 300 MG TABLET PO (09:32)
[2024-06-06] MEDS: OLANZapine ODT 10 MG TAB.RAPDIS TRANSLINGU (09:32)
[2024-06-06] MEDS: Multivitamin TABLET 1 TAB PO (09:32)
[2024-06-06] MEDS: OXcarbazepine 150 MG TABLET PO (09:32)
--- NOTE | 2024-06-06 15:45 | PM.PSYDC ---
DS: Providers Provider Date of Service: 06/06/24 Date of admission: 05/26/24 14:27 Date of discharge: 06/06/24 Primary care physician: Manas Bobo DO Admitting clinician: Rosalie Cohen Attending physician on admission: Baron Izaguirre Attending physician on discharge: Baron Izaguirre Discharging clinician: Rosalie Cohen DS: Diagnosis Discharge Diagnosis (1) Schizoaffective disorder: Status: Acute (2) Developmental delay, moderate: Status: Acute DS: Medications Discharge Medications Home Medications: Home Medications ?Medication ?Instructions ?Recorded ?Confirmed acetaminophen 650 mg PO Q6H PRN Breakthrough 05/26/24 05/26/24 Pain, Mild Previous Rx's ?Medication ?Instructions ?Recorded albuterol sulfate 90 mcg/actuation 2 inh inhalation Q6H PRN sob #1 06/06/24 aerosol inhaler (Ventolin HFA) inhaler clonidine HCl 0.1 mg tablet 0.1 mg PO BEDTIME anxiety #30 tabs 06/06/24 levetiracetam 750 mg tablet 750 mg PO BID #60 tabs 06/06/24 melatonin 3 mg PO BEDTIME #30 tabs 06/06/24 multivitamin with minerals-ferrous 1 tab PO DAILY #30 tabs 06/06/24 sulfate 4.5 mg iron tablet (One Daily Multivitamins with Minerals) olanzapine 10 mg disintegrating 10 mg translingual BID #6 tabs 06/06/24 tablet oxcarbazepine 150 mg tablet 150 mg PO BID #60 tabs 06/06/24 oxcarbazepine 300 mg tablet 300 mg PO BID #60 tabs 06/06/24 Mental Status Exam Mental Status Exam Patient Appearance: Appropriate Patient Orientation: Person, Place and Situation Level of Consciousness: Awake Patient Behavior: Appropriate and Talkative Mood Description: Calm Affect Description: Blunted Patient Cognition Impaired: Yes Ability to Follow Directions: Fair Speech Pattern: Poor Articulation Hallucinations: None Thought Process: Goal Oriented Thought Content: positive for [place] Judgement: Fair Data Data Completed and Pending Completed studies during hospitalization [Text1]: 06/02/24 11:30 Oxcarbazepine Pending DS: Summary Hospital Course Hospital Course: Admission to adult psychiatry for exacerbation of schizoaffective disorder. Pt has developmental delay. She resides in a supportive custodial and her team reports refusal of out pt psychiatric care for several months prior to admission. She was admitted after an episode of significant agitation with property destruction which frightened her peers and team. The thought of the precipitant for this episode of behavioral dyscontrol was that the team mixed some of her laundry in with other peers laundry and the was upsetting for her. There is a history of previous episodes of agitation and aggression. Medications were evaluated and adjusted. Olanzapine was added, tolerated and effective during the admission. Pt was quiet, but milieu connected and was able to stabilize and return to her custodial and [facility] out patient providers. Status at Discharge Functional status at discharge: independent ambulation Overall status at discharge: patient is progressing back to baseline Time Spent with Patient Time attestation: Total time managing care of this patient today ____ minutes. Time spent: Less than 30 minutes Discharge Plan Discharge Anticipated Discharge Date/Time: 06/06/24 12:00 Patient Disposition: Xfer Other Discharge Diagnosis: Schizoaffective Disorder Developmental Delay Referrals: Psych Prescriber: Dyan Hubbard ([facility]) [Other] - 06/07/24 9:30 am (Zoom) Manas Bobo DO [Primary Care Provider] - 1 Week Discharge Medications: New olanzapine 10 mg Tablet,Disintegrating 10 mg translingual BID Qty: 6 0RF Continued acetaminophen 650 mg PO Q6H MDD 3000mg PRN (Reason: Breakthrough Pain, Mild) oxcarbazepine 150 mg tablet 150 mg PO BID Qty: 60 0RF clonidine HCl 0.1 mg tablet 0.1 mg PO BEDTIME Qty: 30 0RF oxcarbazepine 300 mg tablet 300 mg PO BID Qty: 60 0RF levetiracetam 750 mg tablet 750 mg PO BID Qty: 60 0RF albuterol sulfate [Ventolin HFA] 90 mcg/actuation HFA aerosol inhaler 2 inh inhalation Q6H PRN (Reason: sob) Qty: 1 0RF One Daily Multi-Vit w-Mineral 4.5 mg iron tablet 1 tab PO DAILY Qty: 30 0RF melatonin 3 mg PO BEDTIME Qty: 30 0RF Discontinued perphenazine 2 mg tablet 2 mg PO BEDTIME Discharge Orders: Discharge Order (Routine); Ordered 06/06/24 Ordered By: Rosalie M Taswell[place]on[place] Diet: Advance to usual diet Activity on Discharge: As tolerated Stand Alone Forms: Patient Portal Discharge page, Community Support Print Language: Tajik Care Plan Goals: Mood and Behavioral Stabilization Health Concerns: Mood and Behavioral Stabilization Plan of Treatment: Attend scheduled appointments Take medications as directed Assessment: No SI/HI/AH/VH No sx of mk, psychosis, agitation. Pt will return to her residential program. Discharge Date/Time: 06/06/24 12:25
== END 2024-06-06 12:25 | disposition other institution (70) | DRG 750 ==
LOC: HO.ED 22:50 → HO.PM5 05-26 14:48
PROVIDERS: Physician Assistant; Admitting Provider Clinical Nurse Specialist Psychiatric/Mental Health, Adult; Emergency Provider Emergency Medicine Emergency Medical Services; PCP Student in an Organized Health Care Education/Training Program; Visit Provider Clinical Nurse Specialist Psychiatric/Mental Health, Adult
DX: F25.9 Schizoaffective disorder, unspecified (principal); J45.909 Unspecified asthma, uncomplicated; R62.50 Unspecified lack of expected normal physiological development in childhood; Z79.899 Other long term (current) drug therapy
CPT/HCPCS: 36415; 80053; 80061; 80143; 80179; 80307; 80339; 81001; 81003; 81025; 82607; 82746; 83036; 83735; 84439; 84443; 85025; 93005; 99285

== ENCOUNTER → 2024-05-26 08:24 | Outpatient (BNV) | payer OTHER, MEDICAID, SELFPAY | PROVIDERS: Admitting Provider Clinical Nurse Specialist Psychiatric/Mental Health, Adult; Emergency Provider Emergency Medicine Emergency Medical Services; PCP Student in an Organized Health Care Education/Training Program; Visit Provider Internal Medicine Cardiovascular Disease | DX: I49.9 Cardiac arrhythmia, unspecified (principal) | CPT/HCPCS: 93010 ==

== ENCOUNTER → 2024-05-26 14:27 | Outpatient (BNV) | payer OTHER, SELFPAY | PROVIDERS: Admitting Provider Clinical Nurse Specialist Psychiatric/Mental Health, Adult; Emergency Provider Emergency Medicine Emergency Medical Services; PCP Student in an Organized Health Care Education/Training Program; Visit Provider Psychiatry & Neurology Psychiatry | DX: F25.9 Schizoaffective disorder, unspecified (principal); R62.50 Unspecified lack of expected normal physiological development in childhood | CPT/HCPCS: 90792; 99231; 99232; 99238 ==

== ENCOUNTER 2024-11-23 14:16 | Outpatient (AMB) | payer OTHER, SELFPAY ==
--- NOTE | 2024-11-23 14:19 | MHC.OFFVIS ---
Vital Signs 11/23/24 14:20 Height 5 ft 4 in Weight 386 lb BMI 66.2 BP 128/72 Blood Pressure Location Rt brachial Position Sitting Pulse 112 H Pulse Source Pulse Oximeter Pulse Oximetry (%) 97 Oxygen Delivery Method Room Air Intake Visit Reasons: ENP-Seizure Manangement Intake Note: Patient referred to established care for her seizures. Allergies kiwi Adverse Reaction (Verified 11/23/24 14:25) Itching shellfish derived Adverse Reaction (Verified 11/23/24 14:25) Hives Medication List - Last Reconciled 11/23/24 by Kandace Gilliam MD [acetaminophen 650 mg PO Q6H PRN MDD 3000mg] albuterol sulfate 90 mcg/actuation (Ventolin HFA) 2 inhalations inhalation Q6H PRN clonidine HCl 0.1 mg PO BEDTIME guaifenesin 200 mg PO Q4H PRN levetiracetam 750 mg PO BID levetiracetam (Keppra) 750 mg PO BID [melatonin 3 mg PO BEDTIME] gcjwzngl-tia-ytkefkt sulfate 4.5 mg iron (One Daily Multivitamins with Minerals) 1 tab PO DAILY olanzapine 10 mg translingual BID oxcarbazepine 150 mg PO BID oxcarbazepine 300 mg PO BID tirzepatide (weight loss) (Zepbound) 12.5 mg subcut QWEEK HPI Comments Details: 34y/o female with multiple medical issues, developmental delay, schizoaffective disorder comes from her [facility] for further management of seizures. The patient was accompanied by Long Term staff who did not have any information. According the patient her last seizure was in 2008 - shaking and losing consciousness. she is on keppra XR 750 mg bid [facility] Medical History (Updated 11/23/24 @ 14:48 by Kandace Gilliam MD) Seizure disorder Unspecified convulsions Depression Severe obesity Developmental delay, moderate Schizoaffective disorder Cognitive developmental delay Social History Household Members: Other Housing Other:: nursing home Do you presently have visiting nurse or other home services: No Patient Tobacco Use Status: Never used Tobacco service: No Sexual orientation: Unable to collect Physical Exam Vital Signs: Last Vital Signs Pulse 112 H 11/23/24 14:20 BP 128/72 11/23/24 14:20 Pulse Ox 97 11/23/24 14:20 Oxygen Delivery Method Room Air 11/23/24 14:20 BMI result Body Mass Index 66.2 Const General: cooperative Nutritional Appearance: obese Orientation/consciousness: patient oriented x3 Neuro Other: slow General: patient oriented x3 and moves all extremities Cranial nerves: Yes Facial sensation intact/muscles of mastication intact, Yes Bilaterally intact EOM present, Yes Nystagmus not present, Yes Normal facial strength present and Yes Midline tongue present Gait exam (Neuro): Antalgic gait present Motor exam (neuro): 5/5 motor strength present throughout Deep tendon reflexes (DTR's): Right triceps reflex intensity grade: 1+, Left triceps reflex intensity grade: 1+, Rt Biceps (C5, C6): 1+, Left biceps reflex intensity grade: 1+, Right brachioradialis reflex intensity grade: 1+, Left brachioradialis reflex intensity grade: 1+, Right patellar reflex intensity grade: 0 and Left patellar reflex intensity grade: 0 Coordination: codbwh-jk-noon test normal Assessment & Plan Assessment & Plan (1) Seizure disorder: Comment: stable since 2008 Code(s): G40.909 - Epilepsy, unspecified, not intractable, without status epilepticus Category: Medical Plan Continue levetiracteam CR 750 mg bid Monitor side effects F/u in 6 mths Medications: New levetiracetam ER (Keppra XR) 750 mg PO BID 60 tabs 6RF Discontinued levetiracetam Discontinued Reason: Duplicate 750 mg PO BID 60 tabs 0RF Coding Level of Care Code New Pt Level 4 (91716) Diagnoses Seizure disorder G40.909
--- OUTSIDE RECORDS SUMMARY | 2024-11-23 14:19 | XMS_ITS | Clinical Summary ---
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 04/19/20 18 Active ONE DAILY MULTIVITAMIN ORAL Take 1 tablet by mouth 1 (one) time each day. 11/12/19 24 Active acetaminophen (TYLENOL) 325 mg tablet Take 2 Tablets by mouth every 6 hours as needed for Pain. Take 2 tabs by mouth every 6 hrs as needed for Pain or Fever over 100 degrees. Contact HCP if not resolved in 3 days 11/12/19 24 Active clotrimazole (LOTRIMIN) 1 % cream Apply thin layer to affected area twice daily 11/12/19 24 Active albuterol HFA (Ventolin HFA) 90 mcg/actuation inhaler Inhale 2 Puffs into the lungs every 4 hours as needed for Cough, Wheezing or Shortness of Breath 09/07/19 24 Active dextromethorphan- guaiFENesin (Tussin DM) 10-100 mg/5 mL syrup Take 10 mL by mouth every 6 hours as needed (Cough or congestion). Contact HCP if not resolved in 3 days. 05/21/20 23 Active OXcarbazepine (TRILEPTAL) 300 mg tablet 10/08/19 24 Active psyllium (Metamucil Fiber Singles) 3.4 gram packet Take 1 Package by mouth 2 times daily as needed for Other. 05/21/20 23 Active cyproheptadine (PERIACTIN) 4 mg tablet 02/29/20 Active magnesium citrate solution Take 296 mL by mouth 1 (one) time. 02/26/20 23 Active OXcarbazepine (TRILEPTAL) 150 mg tablet Take 3 tablets (450 mg total) by mouth 1 (one) time each day. 02/06/20 23 Active cloNIDine (CATAPRES) 0.1 mg tablet Take 1 tablet (0.1 mg total) by mouth 1 (one) time each day. 02/06/20 23 Active bacitracin 500 unit/gram ointment Apply a thin film topically 3 times daily as needed for small cuts, scrapes, open wounds, rashes or minor soria.. Doses must be at least 4 hours apart. Contact HCP if not resolved in 3 days. 07/30/19 23 Active melatonin 3 mg tablet Take 1 tablet (3 mg total) by mouth at bedtime. 05/03/20 Active levETIRAcetam (KEPPRA) 750 mg tablet evetiracetam 750 mg tablet Take 1 tablet twice a day by oral route for 28 days. Active silver sulfADIAZINE (SILVADENE, SSD) 1 % cream Applied to the perianal skin as a thin film twice daily 12/06/19 Active Active Problems Problem Noted Date Diagnosed Date Asthma 04/07/2024 Seizure disorder ([facility] V24, [facility] V28) 03/14 Schizophrenia ([facility] V24, [facility] V28) 024 Depressive disorder 04/07/2024 Overview (04/07/2024): Dr. Mcqueen Anxiety 04/07/2024 Morbid obesity with BMI of 5 0.0-59.9, adult ([facility] V24, [facility] V28) Encounters Date Type Department Care Team Description 09/15/2024 Telephone Walk-In Clinic - [address] [address] Al Briscoe [place] Medication Problem 09/13/2024 5:55 PM EST - 09/13/2024 11:59 PM EST [facility] [address] [place] [address] Abena HATHAWAY [place] [phone] Chronic pain of right knee Discharge Disposition: Home or Self Care 09/13/2024 5:00 PM EST Office Visit Walk-In Clinic - [address] Abena HATHAWAY [place] [phone] Al Briscoe PA Arthritis of right knee (Primary Dx) from Last 3 Months Immunizations Name Administration Dates Next Due HPV, Quadrivalent 04/28/2014,12/27/2013,10/28/19 14 Influenza Quadravalent, MDCK , 0.5ml, preservative free (Flucelvax) 6mo and older 05/21/2023,06/01/2020,05/23/2019 Influenza Quadravalent, MDCK , 0.5ml, with preservative (Flucelvax) 6mo and older 04/06/2017 Influenza trivalent, 0.5mL, preservative free (Fluarix; FluLaval; Fluzone) ages 6mo and older (Afluria) 3 years and older 08/11/2012 Influenza trivalent, with pr eservative (Fluzone; Afluria) 6mo and older 04/04/2016,05/31/2014,07/25/2011,05/03 [employer] SARS-CoV-2 COVID-19, mRNA, LNP-S, preservative free 06/04/2021,09/11/2020,08/21/2020 Pneumococcal polysaccharide 23 valent (Pneumovax 23) 2yo and older 11/09/2013 Td Tetanus diptheria (Tdvax) 7yo and older 06/01/2020 Tdap Tetanus diptheria acell ular pertussis (Boostrix; Adacel) 7yo and older 05/03/2010 Surgical History Surgery Date Site/Laterality Comments OTHER SURGICAL HISTORY PROCEDURE: DENIES PREVIOUS SURGERY Medical History Medical History Date Comments Asthma DX:Asthma Seizure disorder (CMS/HCC V2 4, CMS/HCC V28) DX:Seizure disorder ([facility]); C OMMENT: Dr. Keith Historical Medical DX DX:Depress ion (disease); COMMENT: Dr. Hubbard Schizophrenia (CMS/HCC V24, CMS/HCC V28) DX:Schizophrenia (HCC) Anxiety DX:Anxiety Covid 11/2021 DX:COVID Family History Medical History Relation Name Comments Breast cancer Neg Hx Colon cancer Neg Hx Ovarian cancer Neg Hx Relation Name Status Comments Father Alive unknown health Mother healthy Social History Tobacco Use Types Packs/Day Years Used Date Smoking Tobacco: Never Smokeless Tobacco: Never Alcohol Use Standard Drinks/Week Comments Not Currently 0 (1 standard drink = 0.6 oz pur e alcohol) Comments Unknown Sex and Gender Information Value Date Recorded Sex Assigned at Not on file Legal Sex Female 10:07 AM EST Gender Identity Not on file Sexual Orientation Not on file Obstetrics History Last Filed Vital Signs Vital Sign Reading Time Taken Comments Blood Pressure 126/86 07/23/2024 10:00 AM EST Pulse 108 09/13/2024 5:19 PM EST Temperature 36.4 ??C (97.5 ??F) 09/13/2024 5:19 PM ES T Respiratory Rate - - Oxygen Saturation 97% 09/13/2024 5:19 PM EST Inhaled Oxygen Concentration - - Weight 163 kg (360 lb) 12/28/2023 1:43 PM EDT Height 167.6 cm (5' 6 ) 11/12/2023 11:45 AM EDT Body Mass Index 58.11 11/12/2023 11:45 AM EDT Plan of Treatment Upcoming Encounters Date Type Department Care Team (Late st Contact Info) Description 01/10/2025 1:30 PM EDT Office Visit Obstetrics and Gynecology - [facility] [address] [place] [address] Katty Gandara [facility] [address] [place] [address] Health Maintenance Due Date Last Done Comments Hepatitis B Vaccines (1 of 3 - 19+ 3-dose series) 02/15/2007 Pneumococcal Vaccine: Pediatrics (0 to 5 Years) and At-Risk Patients (6 to 64 Years) (2 of 2 - PCV) 11/09/2014 11/09/2013 Depression Screening 06/21/2022 HIV Screening 06/21/2022 Hepatitis C Screening 06/21/2022 Social Influencers of Health Screening 06/21/2022 COVID-19 Vaccine ( season) 2024 06/04/2021, 09/11/2020, 08/21/2020 Influenza Vaccine (Season Ended) 2025 05/21/2023, 06/01/2020, 05/23/2019, Additional history exists Cervical Cancer Screening: HPV 01/10/2027 01/10/2022 Cholesterol Screening (Lipid Panel) 05/21/2028 05/21/2023 DTaP,Tdap,and Td Vaccines (3 - Td or Tdap) 06/01/2030 06/01/2020, 05/03/2010 HPV Vaccines Completed 04/28/2014, 12/11, 10/27/2013 HIB Vaccines Aged Out No longer eligi ble based on patient's age to complete this topic Hepatitis A Vaccines Aged Out No long er eligible based on patient's age to complete this topic IPV Vaccines Aged Out No longer eligi ble based on patient's age to complete this topic MMR Vaccines Aged Out No longer eligi ble based on patient's age to complete this topic Meningococcal ACWY Vaccine Aged Out N o longer eligible based on patient's age to complete this topic Meningococcal B Vaccine Aged Out No l onger eligible based on patient's age to complete this topic RSV Immunization Patients Under 20 months Aged Out No longer eligible based on patient's age to complete this topic Varicella Vaccines Aged Out No longer eligible based on patient's age to complete this topic Procedures Procedure Name Priority Date/Time Associated Diagnosis Comments XR KNEE 4+ VIEWS RIGHT STAT 09/13/2024 6:14 PM EST Chronic pain of right knee EXTERNAL XRAY REPORT 09/13/2024 LIPID PANEL Routine 05/21/2023 HM HPV Routine 01/10/2022 from Last 3 Months or Most Recently Relevant to Health Maintenance Results * XR Knee 4+ Views Right (09/13/2024 6:14 PM EST) Anatomical Region Laterality Modality Lower Extremities, Knee Right Radiogra [facility] 09/14/2024 8:38 AM EST Impressions 09/14/2024 8:45 AM EST Moderate degenerative changes of the knee with extensive enthesopathy of the patella. -------- FINAL REPORT -------- Dictated By: Clara Galan Dictated Date: 09/14/2024 08:38 ET Assigned Physician: Clara Galan Reviewed and Electronically Signed By: Clara Galan Signed Date: 09/14/2024 08:45 ET Workstation ID: [id number] Transcribed By: Self Edit Transcribed Date: 09/14/2024 08:38 ET Narrative 09/14/2024 8:45 AM EST HISTORY: Right knee pain times multiple months. ??No injury. TECHNIQUE: 6 views of the right knee COMPARISON: None FINDINGS: ?? No acute fracture or dislocation. ??There is moderate medial and lateral compartmental joint space narrowing with subchondral sclerosis and small osteophytes. ??Moderate-sized osteophytes at the tibial plateaus as well as the femoral condyles Tibial spine spurs are present. ??Extensive enthesopathy of the patella. ??Mild patellofemoral joint space narrowing. ??No suprapatellar joint effusion. Procedure Note Clara Galan MD - 09/14/2024 HISTORY: Right knee pain times multiple months. No injury. TECHNIQUE: 6 views of the right knee COMPARISON: None FINDINGS: No acute fracture or dislocation. There is moderate medial and lateralcompartmental joint space narrowing with subchondral sclerosis and smallosteophytes. Moderate- sized osteophytes at the tibial plateaus as well asthe femoral condyles Tibial spine spurs are present. Extensiveenthesopathy of the patella. Mild patellofemoral joint space narrowing.No suprapatellar joint effusion. IMPRESSION: Moderate degenerative changes of the knee with extensive enthesopathy ofthe patella. -------- FINAL REPORT -------- Dictated By: Clara Galan Dictated Date: 09/14/2024 08:38 ET Assigned Physician: Clara Galan Reviewed and Electronically Signed By: Clara Galan Signed Date: 09/14/2024 08:45 ET Workstation ID: [id number] Transcribed By: Self Edit Transcribed Date: 09/14/2024 08:38 ET Al MARR IMG XR PROCEDURES Final Re sult * External Xray Report (09/13/2024) Anatomical Region Laterality Modality Radiographic Gill ging Provider [facility] XR PROCEDURES Final Result * Lipid panel (05/21/2023) LDL/HDL Ratio 2 0 - 4 Triglycerides 67 0 - 150 mg/dL Cholesterol 173 0 - 200 mg/dL HDL 75 >=40 mg/dL LDL Cholesterol 85 0 - 100 mg/dL Blood Venous blood specimen / Unknown Historical Provider LAB BLOOD ORDERABLES Harini l Result * Cervical Cancer Screening: HPV (01/10/2022) Pathologist [facility] Cervical Cancer Screening: HPV Negative, Abstracted Historical Provider HEALTH MAINTENANCE Final Result from Last 3 Months or Most Recently Relevant to Health Maintenance Insurance [facility] [facility] Care Teams Bias Machine Operator Helper Relationship Specialty Start Date End Date Arslan Metz MD [id number] [place] [id number] PCP - General 12/30/23
--- OUTSIDE RECORDS SUMMARY | 2024-11-23 14:19 | XMS_ITS | Continuity of Care Document ---
Author Organization [facility] Address [address] [place] [address] Phone Care Team Providers Care Top Frame Maker Name Role Phone Ligia Patten Unavailable Unavail able Allergies, Adverse Reactions, Alerts Substance Reaction Status Criticality No Known Allergies Active No Inform ation Medications Medication Instructions Dosage Effective Dates (start - stop) Status Comments Augmentin 500 mg-125 mg tablet take 1 tablet by oral route every 12 hours 1 tablet - Active levothyroxine 25 mcg tablet take 1 tablet by oral route every morning on an empty stomach, 30 min before other food, meds, drink - Active ibuprofen 800 mg tablet take 1 tablet by oral route 3 times every day with food 800 MG - Active + DHA 28 mg iron-800 mcg-200 mg Oral Pack take 1 by Oral route once 1 - Active hydroxyzine HCl 50 mg tablet take 1 tablet by oral route 6 times every day 50 MG - Active Procedures Procedure Date Depression Screen Negative VISUAL ACUITY SCREEN OFFICE/OUTPATIENT VISIT, EST URINALYSIS, AUTO, W/O SCOPE URINE TEST OFFICE/OUTPATIENT VISIT, EST Duplicate Charges Duplicate Charges Depression Screen Negative OFFICE/OUTPATIENT VISIT, EST Depression Screen Negative OFFICE/OUTPATIENT VISIT, EST Pt Left Without Being Seen + Psychotherapy 45 Min With Patient Or F amily Member + FAMILY PSYTX W/PATIENT HEMOGLOBIN For Global Billing Only + FAMILY PSYTX W/PATIENT Plus Package 11+ Visits 2013 VAGINAL DELIVERY WITH CARE 4 URINALYSIS, AUTO, W/O SCOPE OFFICE/OUTPATIENT VISIT, EST URINALYSIS, AUTO, W/O SCOPE OFFICE/OUTPATIENT VISIT, EST + FAMILY PSYTX W/PATIENT + FAMILY PSYTX W/PATIENT Psychotherapy 45 Min With Patient Or Fam milvia Member FAMILY PSYTX W/PATIENT URINALYSIS, AUTO, W/O SCOPE OFFICE/OUTPATIENT VISIT, EST Psychotherapy 30 Min With Patient Or Fam milvia Member URINALYSIS, AUTO, W/O SCOPE OFFICE/OUTPATIENT VISIT, EST FAMILY PSYTX W/PATIENT URINALYSIS, AUTO, W/O SCOPE OFFICE/OUTPATIENT VISIT, EST Psychotherapy 45 Min With Patient Or Fam milvia Member FAMILY PSYTX W/PATIENT Psychotherapy 45 Min With Patient Or Fam milvia Member Psychiatric Diagnostic Evaluation URINALYSIS, AUTO, W/O SCOPE SMEAR, WET MOUNT, SALINE/INK OFFICE/OUTPATIENT VISIT, EST OFFICE/OUTPATIENT VISIT, EST TRANSVAGINAL US, OBSTETRIC URINE TEST OFFICE/OUTPATIENT VISIT, NEW Advance Directives Directive Yes / No Effective Date File Name No Information Encounters Encounter Description Practice Location Reason(s) For Visit Diagnoses Date Provider Providers Copied on Encounter [facility], [address] [place] [address], [id number], [place] tel:[phone] Medical No Information 1 Camelia Ligia. [address] [place] [address], [address], [place]. tel:[phone] OFFICE/OUTPATI ENT VISIT, [facility], [address] [place], [place], [id number], [place] tel:[phone] Medical eye irritation x 3 day (chief complaint) Encounter for screening for depressionBod y mass index (BMI) 27.0-27.9, adultOverweig htEncounter for exam of eyes and vision w/o abnormal findingsUnspe cified conjunctiviti s 9 Deitemeyer Elba. [address] [place] [address], [id number] [address] [place] [address], [id number]. tel:[phone] Referring Provider: [facility], [address] [place] [address], [address]. tel:[phone] [facility], [address] [place] [address], [id number], [place] tel:[phone] Medical No Information 9 Bulow Rafael. [address] [place] [address], [address], [place]. tel:[phone] OFFICE/OUTPATI ENT VISIT, [facility], [address] [place], [place], [id number], [place] tel:[phone] Medical dysuria (chief complaint) Body mass index (BMI) 27.0-27.9, adultOverweig htUrinary tract infection Aaron-0 9-[address] [facility] [place], [address], [place]. tel:[phone] Referring Provider: [facility], [address] [place] [address], [address]. tel:[phone] [facility], [address] [place], [place], [id number], [place] tel:[phone] Medical No Information Nurse Visit. 300 [facility], [id number] [address] [place] [address], [id number], [place]. Referring Provider: [facility], [address] [place], [address]. tel:[phone] miramontes Provider: Encounter Duplicate. [facility], [address] [place], [place], [id number], [place] tel:[phone] Medical No Information Camelia Strong. [address] [place], [address], [place]. tel:[phone] Referring Provider: [facility], [address] [place] [address], [address]. tel:[phone] miramontes Provider: Encounter No. [facility], [address] [place], [place], [id number], [place] tel:[phone] No Information Camelia Strong. [address] [place], [address], [place]. tel:[phone] OFFICE/OUTPATI ENT VISIT, EST [facility], [address] [place], [place], [id number], [place] tel:[phone] Medical pap (chief complaint)Chr onic Conditions (chief complaint)chr onic conditions (chief complaint) Body mass index (BMI) 28.0-28.9, adultOverweig htEncounter for screening for depressionHyp othyroidism, unspecifiedEn counter for screening for HIVEncounter for screening for diabetes mellitusScree leslie for cervical cancerEncount er for STD screeningPers onal history of nicotine dependenceOth er psychoactive substance dependence, in remissionUnsp ecified mood [affective] disorderEncou nter for other specified special examAbnormal cervical Papanicolaou smear, unspecified abnormal pap finding Apr-0 9 Camelia Strong. [address] [place], [address], [place]. tel:[phone] Referring Provider: [facility], [address] [place] [address], [address]. tel:[phone] OFFICE/OUTPATI ENT VISIT, EST [facility], [address] [place], [id number], [place] tel:[phone] musculoskelet al pain (chief complaint) Body mass index (BMI) 27.0-27.9, adultOverweig htEncounter for screening for other disorderPain in right hand Sep- 9 Dia Hall. [address] [place], [address], [place]. tel:[phone] Referring Provider: [facility], [address] [place] [address], [address]. tel:[phone] [facility], [address] [place] [address], [id number], [place] tel:[phone] No Information Nov-2 5 Selma Mclaughlin. [address] [place], [address], [place]. tel:[phone] Referring Provider: [facility], [address] [place] [address], [address]. tel:[phone] sulting Provider: Encounter No. [facility], [address] [place], [place], [id number], [place] tel:[phone] No Information Sep-0 1-201 5 No Information + Psychotherapy 45 Min With Patient Or Family Member [facility], [address] [place] [address], [id number], [place] tel:[phone] [facility] 300 [facility] Unspecified episodic mood disorderAmfet amine dependence [address] [facility], [id number] [address] [place] [address], [id number]. tel:[phone] Referring Provider: [facility], [address] [place] [address], [address]. tel:[phone] + FAMILY PSYTX W/PATIENT [facility], [address] [place], [place], [id number], [place] tel:[phone] [facility] 300 [facility] Unspecified episodic mood disorderAmfet amine dependence 4 Mikala Zaman. [address] [place] [address], [id number] [address] [place] [address], [id number]. tel:[phone] Referring Provider: [facility], [address] [place] [address], [address]. tel:[phone] For Global Billing Only [facility], [address] [place], [place], [id number], [place] tel:[phone] Medical post check up (chief complaint) ROUTINE PHYSICL LAB EXAMRoutine examAmfetamin e dependenceSch izoaffective disorder, unspecified 4 No Information Referring Provider: [facility], [address] [place] [address], [address]. tel:[phone] + FAMILY PSYTX W/PATIENT [facility], [address] [place], [id number], [place] tel:[phone] [facility] [address] Unspecified episodic mood disorderAmfet amine dependence 4 Mikala Zaman. [address] [place] [address], [id number] [address] [place] [address], [id number]. tel:[phone] Referring Provider: [facility], [address] [place] [address], [address]. tel:[phone] [facility], [address] [place], [id number], [place] tel:[phone] No Information 4 Soila Ellsworth. [address] [place] [address], [id number] [address] [place] [address], [id number]. tel:[phone] Referring Provider: [facility], [address] [place] [address], [address]. tel:[phone] [facility], [address] [place], [place], [id number], [place] tel:[phone] [facility] No Information 4 Soila Ellsworth. [address] [place] [address], [id number] [address] [place] [address], [id number]. tel:[phone] Referring Provider: [facility], [address] [place] [address], [address]. tel:[phone] OFFICE/OUTPATI ENT VISIT, [facility], [address] [place], [place], [id number], [place] tel:[phone] Medical routine (chief complaint) Supervision of other normal 4 Diana Keaton Riggins. [address] [place] [address], [id number] [place] [address], [id number]. tel:[phone] Referring Provider: [facility], [address] [place] [address], [address]. tel:[phone] OFFICE/OUTPATI ENT VISIT, [facility], [address] [place], [place], [id number], [place] tel:[phone] Medical routine (chief complaint) Supervision of unspecified high-risk 4 No Information Referring Provider: [facility], [address] [place] [address], [address]. tel:[phone] + FAMILY PSYTX W/PATIENT [facility], [address] [place], [place], [id number], [place] tel:[phone] [facility] [address] [facility] Unspecified episodic mood disorderAmfet amine dependence [address] [facility], [id number] [address] [place] [address], [id number]. tel:[phone] Referring Provider: [facility], [address] [place] [address], [address]. tel:[phone] + FAMILY PSYTX W/PATIENT [facility], [address] [place], [place], [id number], [place] tel:[phone] Unspecified episodic mood disorderAmfet amine dependence 4 Mikala Junie. [address] [place] [address], [id number] [address] [place] [address], [id number]. tel:[phone] Referring Provider: [facility], [address] [place] [address], [address]. tel:[phone] Psychotherapy 45 Min With Patient Or Family Member [facility], [address] [place], [place], [id number], [place] tel:[phone] [facility] [address] [facility] No Information 4 Isabela Swanson. [address], [id number] [address] [place] [address], [address]. tel:[phone] Referring Provider: [facility], [address] [place] [address], [address]. tel:[phone] FAMILY PSYTX W/PATIENT [facility], [address] [place], [id number], [place] tel:[phone] No Information 4 Mikala Junie. [address] [place] [address], [id number] [address] [place] [address], [id number]. tel:[phone] Referring Provider: [facility], [address] [place] [address], [address]. tel:[phone] OFFICE/OUTPATI ENT VISIT, [facility], [address] [place] [address], [id number], [place] tel:[phone] Medical routine (chief complaint) Supervision of unspecified high-risk pregnancyUnsp ecified episodic mood disorderOther , mixed, or unspecified drug abuse, unspecified use 4 No Information Referring Provider: [facility], [address] [place] [address], [address]. tel:[phone] Psychotherapy 30 Min With Patient Or Family Member [facility], [address] [place] [address], [id number], [place] tel:[phone] No Information Isabela Swanson. [address] [place] [address], [id number] [address] [place] [address], [address]. tel:[phone] Referring Provider: [facility], [address] [place] [address], [address]. tel:[phone] OFFICE/OUTPATI ENT VISIT, [facility], [address] [place] [address], [id number], [place] tel:[phone] Medical routine (chief complaint) Supervision of unspecified high-risk pregnancySchi zoaffective disorder, unspecifiedAc stan conjunctiviti s, unspecified 4 No Information Referring Provider: [facility], [address] [place] [address], [address]. tel:[phone] FAMILY PSYTX W/PATIENT [facility], [address] [place] [address], [id number], [place] tel:[phone] No Information 4 Mikala Zaman. [address] [place] [address], [id number] [address] [place] [address], [id number]. tel:[phone] Referring Provider: [facility], [address] [place] [address], [address]. tel:[phone] OFFICE/OUTPATI ENT VISIT, EST [facility], [address] [place] [address], [id number], [place] tel:[phone] Medical routine (chief complaint) Supervision of other normal 4 Tod Garcia. [address] [place] [address], [id number] [address] [place] [address], [id number], [place]. tel:[phone] Referring Provider: [facility], [address] [place] [address], [address]. tel:[phone] Psychotherapy 45 Min With Patient Or Family Member [facility], [address] [place] [address], [id number], [place] tel:[phone] No Information 4 Isabela Swanson. [address], [id number] [address] [place] [address], [address]. tel:[phone] Referring Provider: [facility], [address] [place] [address], [address]. tel:[phone] FAMILY PSYTX W/PATIENT [facility], [address] [place] [address], [id number], [place] tel:[phone] No Information 4 Mikala Zaman. [address] [place] [address], [id number] [address] [place] [address], [id number]. tel:[phone] Referring Provider: [facility], [address] [place] [address], [address]. tel:[phone] Psychotherapy 45 Min With Patient Or Family Member [facility], [address] [place] [address], [id number], [place] tel:[phone] No Information 4 Isabela Swanson. [address] [place] [address], [id number] [address] [place] [address], [address]. tel:[phone] Referring Provider: [facility], [address] [place] [address], 97[address]. tel:[phone] Psychiatric Diagnostic Evaluation [facility], [address] [place], [place], [id number], [place] tel:[phone] mood swings (chief complaint) Unspecified episodic mood disorder 3 Mikala Zaman. [address] [place] [address], [id number] [address] [place] [address], [id number]. tel:[phone] Referring Provider: [facility], [address] [place] [address], 018[address]. tel:[phone] OFFICE/OUTPATI ENT VISIT, [facility], [address] [place], [place], [id number], [place] tel:[phone] Medical routine (chief complaint)rou klever (chief complaint) Screening for other and unspecified genitourinary conditionsSup ervision of other normal pregnancySchi zoaffective disorder, unspecifiedHy pothyroidismV aginitis 3 No Information Referring Provider: [facility], [address] [place] [address], [address]. tel:[phone] OFFICE/OUTPATI ENT VISIT, [facility], [address] [place], [place], [id number], [place] tel:[phone] Medical routine (chief complaint) Supervision of other normal 3 No Information Referring Provider: [facility], [address] [place] [address], [address]. tel:[phone] sulting Provider: Lakesha Vu RN, [address] [place] [address], [address]. tel:[phone] [facility], [address] [place], [place], [id number], [place] tel:[phone] Medical Supervision of other normal 3 Hualecia Francis. [address] [place] [address], [id number] [address] [place] [address], [id number], . tel:[phone] Referring Provider: [facility], [address] [place] [address], 78[address]. tel:[phone] [facility], [address] [place], [place], [id number], tel:[phone] Medical free preg test (chief complaint) examination or test, unconfirmed 3 Nurse Visit. [address] [place] [address], [id number] [address] [place] [address], [id number], [place]. Referring Provider: [facility], [address] [place] [address], [address]. tel:[phone] sulting Provider: [facility] Die Baker. OFFICE/OUTPATI ENT VISIT, [facility], [address], [place], [id number], [place] tel:[phone] Medical check up (chief complaint)chr onic conditions (chief complaint) Hypothyroidis mSchizoaffect bar disorder, unspecifiedSc hizoaffective disorder, unspecified 3 No Information Referring Provider: [facility], [address] [place] [address], 8[address]. tel:[phone] Family History Family Member Type Diagnosis Age At Onset Sister Problem (finding) Mental illness Mother Problem (finding) Cancer, unknown Father Problem (finding) Cancer - gi Mother Problem (finding) diabetes mellitus type 2 Problem (finding) No family history of St roke Father Problem (finding) Maternal history of jaylin betes mellitus Mother Problem (finding) Mental illness Problem (finding) No family hist ory of Myocardial infarction Father Problem (finding) Heart disease Immunizations Vaccine Date Status Comments FluLaval (18 yr-65 +) administered Source : New Immunization Record Payers Payer name Insurance type Covered libertarian ID Authoriza tion(s) [place] [employer] MC [id number] Social History Type Description Quantity Date Captured Comments Alcohol Use Details Unknown Caffeine Use Details Unknown Tobacco Use Status No Information Smoking Status No Information Sex Female Sexual Orientation Straight or heterosexual Oct Chief Complaint And Reason For Visit No Information Reason For Referral Reason For Referral No Information Plan Of Treatment Date Type Action Status Goal Depression scree leslie. Due on due Goal Pap/HPV testing. Due on due Goal Influenza vaccine. Due on due Goal HIV due Goal PAP. Due on due Goal Pap/HPV testing. Due on due Goal HIV due Goal Depression scree leslie. Due on due Goal Lipid Panel. Due on due Goal Influenza vaccine. Due on due Goal PAP. Due on due Goal Dietary manageme nt education, guidance, and counseling completed Goal Pap/HPV testing. Due on due Goal Depression scree leslie. Due on due Goal PAP. Due on due Goal Influenza vaccine. Due on due Goal Lipid Panel. Due on due Goal HIV due Goal Lipid Panel. Due on due Goal Pap/HPV testing. Due on due Goal Depression scree leslie. Due on due Goal PAP. Due on due Goal HIV due Goal Influenza vaccine. Due on due Goal Lifestyle education regardin g diet completed Goal HIV due Goal PAP. Due on due Goal Influenza vaccine. Due on due Goal PAP. Due on due Goal HIV due Goal Influenza vaccine. Due on due Goal Lifestyle education regardin g diet completed Goal H&P. Due on due Goal Tdap. Due on due Goal PAP. Due on due Goal HIV. Due on due Goal Td vaccine. Due on 19 due Goal PHQ-2. Due on du e Goal Influenza vaccine. Due on due Goal Tobacco cessation counseling completed Goal Tobacco Cessation counseling completed Goal Lifestyle education regardin g diet completed Goal Breast Exam Disc ussion. Due on due Goal PHQ-2. Due on du e Goal HIV. Due on due Goal Depression Scree leslie. Due on due Goal Tdap. Due on due Goal Influenza vaccine. Due on due Goal H&P. Due on due Goal Td vaccine. Due on 15 due Goal VAULT WORKER exam. Due on due Goal PAP. Due on due Goal H&P. Due on due Goal PAP. Due on due Goal Influenza vaccine. Due on due Goal VAULT WORKER exam. Due on due Goal Tdap. Due on due Goal HIV. Due on due Goal Depression Scree leslie. Due on due Goal Td vaccine. Due on 15 due Goal Breast exam. Due on due Goal PAP. Due on due Goal H&P. Due on due Goal VAULT WORKER exam. Due on due Goal Tdap. Due on due Goal HPV (). Due on 4 due Goal Depression Scree leslie. Due on due Goal Td vaccine. Due on 14 due Goal H&P. Due on due Goal PAP. Due on due Goal Depression Scree leslie. Due on due Goal Td vaccine. Due on due Goal VAULT WORKER exam. Due on due Goal Tdap. Due on due Goal Breast exam. Due on 014 due Goal HPV (). Due on due Goal HPV (). Due on 4 due Goal PAP. Due on due Goal Td vaccine. Due on 14 due Goal VAULT WORKER exam. Due on due Goal Breast exam. Due on due Goal H&P. Due on due Goal Depression Scree leslie. Due on due Goal Tdap. Due on due Goal Td vaccine. Due on 14 due Goal Tdap. Due on due Goal Depression Scree leslie. Due on due Goal H&P. Due on due Goal PAP. Due on due Goal VAULT WORKER exam. Due on due Goal Breast exam. Due on due Goal HPV (). Due on due Goal Tdap. Due on due Goal HPV (). Due on due Goal H&P. Due on due Goal VAULT WORKER exam. Due on due Goal PAP. Due on due Goal Breast exam. Due on due Goal Td vaccine. Due on due Goal Depression Scree leslie. Due on due Goal Td vaccine. Due on 14 due Goal HPV (1st). Due on due Goal Tdap. Due on due Goal PAP. Due on due Goal Depression Scree leslie. Due on due Goal VAULT WORKER exam. Due on due Goal Breast exam. Due on due Goal H&P. Due on due Goal Breast exam. Due on due Goal VAULT WORKER exam. Due on due Goal Depression Scree leslie. Due on due Goal HPV (1st). Due on 4 due Goal PAP. Due on due Goal Tdap. Due on due Goal Td vaccine. Due on 14 due Goal H&P. Due on due Goal Tdap. Due on due Goal Depression Scree leslie. Due on due Goal HPV (1st). Due on 4 due Goal Breast exam. Due on 014 due Goal PAP. Due on due Goal Td vaccine. Due on 14 due Goal H&P. Due on due Goal VAULT WORKER exam. Due on due Goal H&P. Due on due Goal Td vaccine. Due on 14 due Goal Tdap. Due on due Goal Breast exam. Due on 014 due Goal Depression Scree leslie. Due on due Goal PAP. Due on due Goal HPV (1st). Due on 4 due Goal VAULT WORKER exam. Due on due Goal Breast exam. Due on 014 due Goal Td vaccine. Due on 14 due Goal H&P. Due on due Goal VAULT WORKER exam. Due on due Goal Tdap. Due on due Goal Depression Scree leslie. Due on due Goal HPV (1st). Due on 4 due Goal PAP. Due on due Goal Td vaccine. Due on 14 due Goal VAULT WORKER exam. Due on due Goal H&P. Due on due Goal Breast exam. Due on 014 due Goal PAP. Due on due Goal Depression Scree leslie. Due on due Goal HPV (1st). Due on 4 due Goal Tdap. Due on due Goal Tobacco cessation counseling completed Referral Ordered: Hand 3 Vw RT XRay ([id number]) ordered Referral Ordered: OB US >/= 14 WKS, SNGL FETUS ordered Referral Ordered: Referral: Behavior Health. ordered Future Order: Lab Order HELLP (P IH Panel) ([id number]), Ordered on: Ordered Future Order: Lab Order CBC With Differential/Platelet ([id number]), Ordered on: Ordered Future Order: Lab Order Thyroid Panel With TSH ([id number]), Ordered on: Ordered Future Order: Lab Order 1 Hour G est. Diabetes 1-Hr Screen ([id number]), Ordered on: Ordered History Of Present Illness Encounter Date Complaint History Of Prese nt Illness eye irritation x 3 day eye irritation x 3 day 6 days ag o pt was pouring cement into the hopper and some cement splashed up into her left eye even though she was wearing eye protection. She used the eye wash station and washed out her eyes right after. Pt reports since then she has had some slight irriation and clear drainage from the eye with slight redness. Denies changes in vision or pain. Reports nothing has gotten worse, but it is not getting better. Has not tried any meds. dysuria pt c/o slight pa in toward end of urinating each time and less amount produced each time, no fever/chills dysuria pap This patie nt presents today for a Pap smear. Last Pap smear was 06/2013 and was normal. Patient has a history of abnormal pap smear (cervical dysplasia) in 2007 and underwent colposcopy. LMP was 10/05. Menstrual cycles are regular. Patient is sexually active and does not use condoms. She was [facility] and reports she was treated for some STD while incarcerated. She requests STD screening and HIV screening. Patient denies unusual vaginal discharge, itching, odor, dysuria, dyspareunia, or menstrual spotting. chronic conditions *See Chronic Conditions HPI Chronic Conditions *See Chronic Conditions HPI musculoskeletal pain f/u hand in jury; patient has a habit of punching things when she is angry and one episode a month for 3 months occurred while incarcerated and the third punch resulted in continued bruising and pain of R hand musculoskeletal pain post check up pt presents today for post check ..pt c/o of px in uziel wrist and uziel ankle px x 3 weeks states she feels weak.Is in [facility]. Doing well. Wants to incr wellbutrin back to 300mg dose...was given 150mg in hosp. Also taking neurontin wh/ helps with anxiety.Feels safe at home.Not nursing at all, but still some breast leakage. Sees baby once per week. routine LMP was . The patient had 4 previous pregnancies. routine LMP was . The patient had 4 previous pregnancies. Associated symptoms include edema, heartburn, nausea, vaginal discharge, vomiting. Pertinent negatives include bleeding. routine LMP was . This is # 5. routine LMP was 013. This is # 5. routine LMP was . This is # 4. routine routine LMP was 013. This is # 4. Additional information: Here for IOB, states she didnot draw labs, but will after this visit, desires a flu shot and a mental health consult.. routine LMP was 013. Patient was not taking control pills at or around the time of her LMP. This is # 4. Associated symptoms include breast tenderness, fatigue, heartburn, irritability, nausea, vomiting. Pertinent negatives include anorexia, bleeding, constipation, edema, fever, headache, pelvic pain, spotting, urinary difficulty, vaginal discharge. free preg test check up chronic conditions Schizoaffecti ve disorder, unspecified (onset 02/25/2006. Pt diagnosed at age 16 with depression, bipolar, then schizophrenia (per her somewhat unclear hx). Seen at [facility], but doesnt' want to go there anymore; is trying to get in with psychiatrist at [facility], but feels her bipolar is no longer an issue. She was mandated to get under the care of a physician by social service manager, who she said was called by her family because they just werent' getting along. Denies SI or HI now. Mood is great.) Functional Status Date Functional Assessmen t No Information Instructions Date Instruction Additional Infor claudia left eye with irrita tion with normal visual acuity and neg flouro eye exam, will start tx with erythromycin eye ointment tid for 7 days, i rec pt to rtc tomorrow for recheck which pt declined apt, She agrees if worsening sxs (changes in vision and increased swelling) she will rtc or go to ER Related to Unspecified conjunctivitis Giving encouragement to exercise Related to BMI of 27.0 - 27.9 (Overweight) Dietary management e ducation, guidance, and counseling Related to BMI of 27.0 - 27.9 (Overweight) Patient to increase oral fluid intake including cranberry juice if no history of diabetes, urine will be sent for culture and patient will be contacted if antibiotic needs to be changed or added due to culture sensitivities, [id number] pain/fever reliever she be taken as directed as needed.F/U PCP if symptoms have not improved or have worsened over the next several days.To ED in 24-48 hours if increased fever or chills or increased vomiting or abdominal pain or back pain Related to Urinary tract infection Giving encouragement to exercise Related to BMI of 27.0 - 27.9 (Overweight) Lifestyle education regarding di et Related to BMI of 27.0 - 27.9 (Overweight) Will see if we can l ocate her records from [facility] archives Related to Abnormal cervical Papanicolaou smear, unspecified abnormal pap finding will check lab per her request R elated to Encounter for screening for HIV screening hemoglobin A1c ordered Related to Encounter for screening for diabetes mellitus Pap smear completed. Related to Screening for cervical cancer [place] and serum lab s ordered. Will mail results to patient. Related to Encounter for STD screening Continue treatment t [facility] [[email or web address] Report mood swings, sudden worsening of your mood, thoughts of self harm to providers or seek emergency medical attention at the ER. Related to Unspecified mood [affective] disorder Continue treatment a [facility] and continue to remain abstinent from illicit substances. Records released signed. Related to Other psychoactive substance dependence, in remission Continue to avoid tobacco produc ts. Related to Personal history of nicotine dependence Check thyroid level. F/u if abno rmal. Related to Hypothyroidism, unspecified Lifestyle education regarding di et Related to BMI of 28.0 - 28.9 (Overweight) Giving encouragement to exercise Related to BMI of 28.0 - 28.9 (Overweight) Splint R hand todayX R R hand to rule out fracture of 4th metacarpal bone; she states its ok to call her mom with the results at [phone] [facility] should take [facility]TC pain/fever reliever as needed and directed. 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 UDS obtained at pt request today.Gave positive reinforcement for a job well done! Will avoid any/all addictive meds in future. Related to Amfetamine dependence Continue neurontin & increase wellbutrin to prev dose. [facility]. f/u 2-3mo for med check. Related to Schizoaffective disorder, unspecified Doing well, w/o sx o f hemorrhage or infection. mood changes are normal, but if severe let provider know. May return to normal physcial and sexual activity 6 weeks after delivery. Call or be seen if fever, chills, breast redness/pain, heavy vaginal bleeding.No need for contraception as tubal completed .Next pap smear is due Jun 2017. 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 14 - 18 Week Handout 22 - 26 Week Handout tobacco (ask, advise , assess, assist and arrange) alcohol illicit / recreational drugs risk factors identif ied by history HIV and other routine t ests childbirth classes / hospital facilities seat belt use domestic violence indications for ultrasound exercise toxoplasmosis precau tions (cats / raw meat) nutrition and weight gain counseling, special diet anticipated course of c are 10 - 14 Week Handout 6 - 10 Week Handout use of any medicatio ns (including supplements, vitamins, herbs, OTC drugs) environmental / work hazards smoking counseling Assessments Type Assessment Date No Information Goals Health Concern Goal Type Priority Status Date OB pt with positive tox screen for meth Establish communication with Dept of Thermal Intelligence Analyst for pt OB care coordination Patient Goal Patient Care Teams Name Effective Dates (start - stop) Status Members No Information
--- OUTSIDE RECORDS SUMMARY | 2024-11-23 14:19 | XMS_ITS | Continuity of Care Document ---
Author Organization [facility] Address [address] [place] [address] Phone Care Team Providers Care Compatibility Test Engineer Name Role Phone Caddali AIRCRAFT LAUNCH AND RECOVERY TECHNICIAN-C, PMHNP-C, Desiree Unavailable Unavailable Allergies, Adverse Reactions, Alerts Substance Reaction Status Criticality No Known Allergies Active No Inform ation Medications Medication Instructions Dosage Effective Dates (start - stop) Status Comments Latuda 60 mg tablet take 1 tablet by ora l route every evening with dinner - Active prazosin 1 mg capsule take 1 capsule PO at bedtime - Active prazosin 2 mg capsule take 1 capsule PO at bedtime - Active levothyroxine 75 mcg tablet take 1 tablet by oral route every day 75 MCG - Active Advance Directives Directive Yes / No Effective Date File Name No Information Encounters Encounter Description Practice Location Reason(s) For Visit Diagnoses Date Provider [facility], [address], [id number], tel:[phone] Family Medicine No Information Mar- 0 Laurie Ramírez. [address], [address], [place], [place], [id number], [place]. tel:[phone] [facility], [address], [id number], [place] tel:[phone] Family Medicine [facility] Medical Clearance (chief complaint) hypothyroi dism (chief complaint) Encounter for screening for respiratory tuberculosisIrregular menstruationObesityMood disorderHypothyroidismEnco unter for screening, unspecified Sep- 0 No Information Family History Family Member Type Diagnosis Age At Onset Mother Problem (finding) Thyroid disorder Father Problem (finding) Thyroid disorder Mother Problem (finding) alcoholism Mother Problem (finding) Allergies Father Problem (finding) attention deficit hyper activity disorder Mother Problem (finding) Diabetes mellitus Mother Problem (finding) depression Father Problem (finding) coronary arterioscleros is Mother Problem (finding) attention deficit hyper activity disorder Father Problem (finding) learning disability Father Problem (finding) Mental illness Father Problem (finding) depression Mother Problem (finding) Mental illness Father Problem (finding) Heart Attacks X3 Father Problem (finding) Allergies Payers Payer name Insurance type Covered libertarian ID Authoriza tion(s) [place] Medicaid MC [id number] Social History Type Description Quantity Date Captured Comments Alcohol Use Details Unknown Caffeine Use Details Unknown Tobacco Use Status No Information Smoking Status No Information Sex Female Sexual Orientation Declined Gender Identity Female Chief Complaint And Reason For Visit No Information History Of Present Illness Encounter Date Complaint History Of Prese nt Illness hypothyroidism The symptoms beg an 20 years ago and generally lasts 20 Years. The symptoms are reported as being mild. The symptoms occur constantly. The location is Endocrine system. Aggravating factors include medication noncompliance. She states the symptoms are chronic and are poorly controlled. patient states that she was diagnosed at the age of 17 but has not been on medication religiously since that time. Her last dose of medication was [facility] [facility] Medical Clearance Establish carePast medical history:SchizophreniaNight terrorsHypothyroidism- off meds for 4 weeks- 75 mcg (round bluish rosa)Past surgical history:Patient had a tubal ligation performed in 2010 and 2013 cholecystectomy at the age of 16FDLMP: currentStart of menstruation: age 9regular/irregular: regular (usually at the end of the month) has spotting inbetween periodsDuration: 3-4Tampons/Pads: tampons 5 on heaviest days. sometimes bleeds through. really heavy all boys 13 12 8 6Contraception: no contraception currently due to tubal ligation.Social history:Work/School: patient is not currently working or in schoolMarried/single: denies currently being in a relationshipSexually active: not sexually active patient is bisexualGender identity/Which pronouns do you prefer? identifies as female prefers female pronounsSmoking: Patient states that she quit smoking at the end of FebruaryAlcohol: denies current alcohol useTHC: states she smokes marijuana all the time. States she smokes 1 g a dayDrugs: previously used cocaine at age 17 and had ongoing meth use last use was in February.Diet: States she keeps a vegetarian diet but eats both fish and beef jerkyExercise: does not exercisePreventative:Tetanus: declinesFlu: declinesPneumonia 13 and 23: declinesPap: last pap 2018 (abnormal in the past) does need a new appointment for Pap smear and EMB.Family History:Mother: Mother has type 2 diabetes and cancer but she does not know what kind of cancer. She also is end-stage renal disease currently on hemodialysis.Father: Patient's father has had 3 myocardial infarctions starting at age 50.Brother: x4 Sister: x4 Instructions Date Instruction Additional Infor claudia continue Latuda. Enc ounter for therapeutic drug monitoring of A1c and lipids Related to Mood disorder Patient's PHQ 9 was reviewed in chart. She scored a 9 no further action taken. patient is going inpatient with [facility]. Go directly to the ED for acute mk or suicidal ideations. Discussed the [place] Crisis line: 0-222-559-TALK (4864) [place] [address]. Active-[employer] (Trans-Led): , [employer] (LGBTQ): , mantherapy.org, nowmattersnow.org Related to Encounter for screening, unspecified TB test placed today no past exposures Related to Encounter for screening for respiratory tuberculosis Diet/exercise recomm endations:- Limit high-calorie foods and beverages and increase physical activity to promote weight loss if overweight or obese- decrease carbohydrate intake- Avoid processed grains, sugars- Avoid sugar sweetened beverages - 50-80% of each meal should be healthy whole vegetables- aim to exercise at least 150 minutes per week- include strength training exercises at least 2 days per week Related to Obesity patient does state t hat she has breakthrough bleeding between her periods which are fairly regular. They occur mostly at the end of the month but she does have several days of spotting in between periods. She states that her periods are very heavy. She uses tampons only an approximately 5 during her heaviest days with breakthrough bleeding. Patient did have a Pap smear in the past which was irregular this was followed by a colposcopy but she does not remember the results of this exam given the patient's history of irregular menstruation and abnormal Pap smear she will be set up for another Pap with endometrial biopsy. Labs have been ordered to workup PC OS given patient's obesity and period irregularity. Related to Irregular menstruation will assess TSH befo re restarting medications.The patient states that she previously was on 75 mcg of levothyroxine daily.She had poor compliance with medication Related to Hypothyroidism Assessments Type Assessment Date No Information
[2024-11-23 14:20] VITALS: BP 128/72; PULSE 112; O2SAT 97; BMI 66.2
== END 2024-11-23 14:55 | disposition home or self-care (01) ==
LOC: HO.HSMS 14:16
PROVIDERS: PCP Student in an Organized Health Care Education/Training Program; Visit Provider Psychiatry & Neurology Neurology
DX: G40.909 Epilepsy, unspecified, not intractable, without status epilepticus (principal)
CPT/HCPCS: 99204

== ENCOUNTER → 2024-11-23 14:16 | Outpatient (BNVA) | payer OTHER, SELFPAY | PROVIDERS: PCP Student in an Organized Health Care Education/Training Program; Visit Provider Psychiatry & Neurology Neurology | DX: G40.909 Epilepsy, unspecified, not intractable, without status epilepticus (principal) | CPT/HCPCS: 99202 ==